=== PATIENT | male | born 1950 | race Caucasian/White ===

== ENCOUNTER 2020-12-08 14:28 | Inpatient (IN) | payer OTHER ==
[2020-12-08] MEDS ORDERED: dilTIAZem HCL 50 MG/10 ML - 10 ML VIAL IVPUSH ONE (14:50)
[2020-12-08] MEDS ORDERED: dilTIAZem HCL 50 MG/10 ML - 10 ML VIAL ONE (14:52)
[2020-12-08] MEDS ORDERED: LACTATED RINGERS SOLUTION 1000 ML INFUS.BAG IV ONE (14:58)
[2020-12-08 15:37] LABS: BASO % 0.8 % (0-2.0); EOS % 0.7 % (0-4.5); HEMATOCRIT 34.9 % (35.4-49); HEMOGLOBIN 12.2 GM/dL (11.7-16.9); LYMPH % 14.7 % (8-40); MCH 34.9 pg (25.7-33.7); MCHC 35.1 g/dl (32.0-35.9); MEAN CELL VOLUME 99.4 fl (80-96); MEAN PLT VOLUME 9.2 fl (7.5-11.1); MONO % 10.6 % (3.8-10.2); NEUT % 73.2 % (42.8-82.8); PLATELET COUNT 85 K/MM3 (134-434); RBC 3.51 M/mm3 (4.00-5.60); RDW 15.2 % (11.9-15.9); WHITE BLOOD COUNT 7.4 K/mm3 (4.0-10.0)
[2020-12-08 15:46] LABS: INR 0.94 (0.83-1.09); PROTHROMBIN TIME (PATIENT) 11.6 SEC (9.7-13.0)
[2020-12-08 15:49] LABS: ACTIVATED PTT 23.4 SECONDS (25.2-36.5)
[2020-12-08 15:53] LABS: CHLORIDE 94 mmol/L (98-107); SODIUM 131 mmol/L (136-145)
[2020-12-08 15:55] LABS: ALBUMIN 2.9 g/dl (3.4-5.0); ANION GAP 8 MMOL/L (8-16); BLOOD UREA NITROGEN 5.4 mg/dL (7-18); CALCIUM 8.4 mg/dL (8.5-10.1); CO2 28 mmol/L (21-32); GLUCOSE,RANDOM 174 mg/dL (74-106)
[2020-12-08 15:58] LABS: CREATININE 0.8 mg/dL (0.55-1.3); SGOT/AST 79 U/L (15-37); SGPT/ALT 43 U/L (13-61)
[2020-12-08 16:00] LABS: BILIRUBIN,TOTAL 1.4 mg/dL (0.2-1); TOT PROT 6.7 g/dl (6.4-8.2)
[2020-12-08 16:01] LABS: ALK PHOS 197 U/L (45-117)
[2020-12-08 16:04] LABS: N-TERMINAL BNP 816.2 pg/ml (5-125)
[2020-12-08] MEDS ORDERED: CEFTRIAXONE 1,000 MG in DEXTROSE 5%-WATER - 50 ML IVPB ONE (16:14)
[2020-12-08] MEDS ORDERED: NAPH,MB-DB/K PH,MBDB POWDER PACKET PO ONE ×2 (16:16→16:17)
[2020-12-08] MEDS ORDERED: KCL 10 MEQ IVPB 30 MEQ/300 ML INFUS.BAG IVPB ONE (16:49)
[2020-12-08] MEDS ORDERED: CEFTRIAXONE 1 GM/50 ML BAG ONE (16:49)
[2020-12-08] MEDS ORDERED: NAPH,MB-DB/K PH,MBDB POWDER PACKET ONE (16:50)
[2020-12-08] MEDS ORDERED: FOLIC ACID INJECTION - 1 MG, THIAMINE HCL 100 MG, MULTIVIT INJECTION ADULT 10 ML in SOD... IVPB ONE (16:53)
[2020-12-08] MEDS ORDERED: chlordiazePOXIDE HCL 25 MG CAPSULE PO ONE (17:02)
[2020-12-08] MEDS: KCL 10 MEQ IVPB 10 MEQ/100 ML INFUS.BAG IVPB SCH ×3 (17:03→20:56)
[2020-12-08 17:24] LABS: LIPASE 935 U/L (73-393)
[2020-12-08] MEDS ORDERED: chlordiazePOXIDE HCL 25 MG CAPSULE ONE (17:51)
[2020-12-08 18:49] LABS: EPI CELLS 0-1 /uL (0-25.1); HYALINE CASTS 0 /uL (0-3.1); URINE BACTERIA FEW /uL (0-1359); URINE COLOR RED; URINE RBC >100 /uL (0-23.9); URINE WBC 0-3 /uL (0-25.8)
[2020-12-08 18:50] LABS: URINE APPEARANCE CLOUDY
[2020-12-09] MEDS: THIAMINE HCL 100 MG TABLET (FP) PO SCH ×2 (00:08→11:26)
[2020-12-09] MEDS: FOLIC ACID 1 MG TABLET (FP) PO SCH ×2 (00:08→11:26)
[2020-12-09] MEDS: NICOTINE 7 MG/24 HOURS TOPICAL PATCH TD SCH ×2 (00:26→11:26)
[2020-12-09] MEDS: INSULIN SLIDING SCALE (NOVOLOG) 1 VIAL SQ SCH ×4 (00:29→17:04)
[2020-12-09] MEDS ORDERED: LORazepam 1 MG TABLET PO PRN (05:00)
[2020-12-09] MEDS ORDERED: RIFAXIMIN 200 MG TABLET PO SCH ×3 (06:00)
[2020-12-09] MEDS: NAPH,MB-DB/K PH,MBDB POWDER PACKET PO SCH ×3 (07:01→21:06)
[2020-12-09] MEDS: LORazepam 1 MG TABLET PO SCH ×5 (07:01→23:45)
[2020-12-09 09:22] LABS: HEMOGLOBIN 10.2 GM/dL (11.7-16.9); MCH 35.5 pg (25.7-33.7); MCHC 35.3 g/dl (32.0-35.9); MEAN CELL VOLUME 100.6 fl (80-96); MEAN PLT VOLUME 9.1 fl (7.5-11.1); PLATELET COUNT 71 K/MM3 (134-434); RBC 2.88 M/mm3 (4.00-5.60); RDW 14.7 % (11.9-15.9); WHITE BLOOD COUNT 5.3 K/mm3 (4.0-10.0)
[2020-12-09 10:09] LABS: SGOT/AST 62 U/L (15-37)
[2020-12-09 10:13] LABS: CHOLESTEROL 125 mg/dL (50-200)
[2020-12-09 10:14] LABS: HDL CHOLESTEROL 46 mg/dL (40-60); LDL CHOLESTEROL (ONLY SJRH) 55 mg/dL (5-100); TRIGLYCERIDES 107 mg/dL (0-150)
[2020-12-09 10:21] LABS: CALCIUM 7.6 mg/dL (8.5-10.1); MAGNESIUM 1.9 mg/dL (1.8-2.4)
[2020-12-09 10:22] LABS: BLOOD UREA NITROGEN 3.9 mg/dL (7-18)
[2020-12-09 10:23] LABS: CO2 25 mmol/L (21-32); GLUCOSE,RANDOM 121 mg/dL (74-106)
[2020-12-09 10:24] LABS: SGPT/ALT 31 U/L (13-61)
[2020-12-09 10:26] LABS: BILIRUBIN,TOTAL 0.9 mg/dL (0.2-1); TOT PROT 5.3 g/dl (6.4-8.2)
[2020-12-09 10:27] LABS: CREATININE 0.4 mg/dL (0.55-1.3)
[2020-12-09 10:29] LABS: ALBUMIN 2.2 g/dl (3.4-5.0); ALK PHOS 147 U/L (45-117); ANION GAP 5 MMOL/L (8-16); CHLORIDE 105 mmol/L (98-107); PHOSPHOROUS 1.1 mg/dL (2.5-4.9); SODIUM 136 mmol/L (136-145)
[2020-12-09] MEDS ORDERED: SODIUM PHOSPHATE - 0 MM in DEXTROSE 5%-WATER - 250 ML IVPB ONE (10:53)
[2020-12-09 10:56] LABS: IRON SERUM 62 ug/dL (50-175); TOTAL IRON BINDING CAPACITY 163 ug/dL (250-450)
[2020-12-09] MEDS ORDERED: cefTRIAXone SODIUM 1 GM VIAL ONE (11:22)
[2020-12-09] MEDS ORDERED: DEXTROSE 5%-WATER - 50 ML IVPB ONE (11:23)
[2020-12-09] MEDS: CEFTRIAXONE 1 GM in DEXTROSE 5%-WATER - 50 ML IVPB SCH (11:26)
[2020-12-09] MEDS: MULTIVITAMINS (DAILY MVI) TABLET (FP) PO SCH (11:26)
[2020-12-09] MEDS: LACTULOSE 20 GM/30 ML UDC (FOR ORAL USE ONLY) PO SCH ×3 (11:26→21:07)
[2020-12-09] MEDS: POLYETHYLENE GLYCOL 3350 119 GM BTL PO SCH ×2 (11:28→21:06)
[2020-12-09] MEDS ORDERED: SODIUM PHOSPHATE - 30 MM in DEXTROSE 5%-WATER - 500 ML IVPB ONE (12:00)
[2020-12-09 19:35] LABS: PH,URINE 7.5 (5.0-8.0); URINE APPEARANCE CLOUDY; URINE BILIRUBIN NEGATIVE (NEGATIVE); URINE COLOR ORANGE; URINE GLUCOSE (UA) NEGATIVE (NEGATIVE); URINE KETONE NEGATIVE (NEGATIVE); URINE LEUK ESTERASE NEGATIVE (NEGATIVE); URINE NITRITE NEGATIVE (NEGATIVE); URINE PROTEIN NEGATIVE (NEGATIVE)
[2020-12-09 19:37] LABS: EPI CELLS 5.2 /uL (0-25.1); HYALINE CASTS 0.12 /uL (0-3.1); URINE BACTERIA 2.8 /uL (0-1359)
[2020-12-09] MEDS: RIFAXIMIN 550 MG TABLET (UD) PO SCH (21:06)
[2020-12-10] MEDS: INSULIN SLIDING SCALE (NOVOLOG) 1 VIAL SQ SCH ×4 (00:30→17:23)
[2020-12-10] MEDS: NAPH,MB-DB/K PH,MBDB POWDER PACKET PO SCH ×3 (05:57→21:30)
[2020-12-10] MEDS: LACTULOSE 20 GM/30 ML UDC (FOR ORAL USE ONLY) PO SCH ×3 (05:58→21:30)
[2020-12-10] MEDS: LORazepam 1 MG TABLET PO SCH ×4 (05:58→22:20)
[2020-12-10 09:10] LABS: BASO % 0.8 % (0-2.0); EOS % 1.8 % (0-4.5); HEMATOCRIT 32.9 % (35.4-49); HEMOGLOBIN 11.4 GM/dL (11.7-16.9); LYMPH % 18.6 % (8-40); MCH 35.2 pg (25.7-33.7); MCHC 34.7 g/dl (32.0-35.9); MEAN CELL VOLUME 101.4 fl (80-96); MEAN PLT VOLUME 9.6 fl (7.5-11.1); MONO % 9.7 % (3.8-10.2); NEUT % 69.1 % (42.8-82.8); PLATELET COUNT 86 K/MM3 (134-434); RBC 3.25 M/mm3 (4.00-5.60); RDW 15.5 % (11.9-15.9); WHITE BLOOD COUNT 6.9 K/mm3 (4.0-10.0)
[2020-12-10] MEDS ORDERED: cefTRIAXone SODIUM 1 GM VIAL ONE (09:17)
[2020-12-10] MEDS ORDERED: DEXTROSE 5%-WATER - 50 ML IVPB ONE (09:17)
[2020-12-10 09:20] LABS: CALCIUM 7.9 mg/dL (8.5-10.1)
[2020-12-10] MEDS: CEFTRIAXONE 1 GM in DEXTROSE 5%-WATER - 50 ML IVPB SCH (09:20)
[2020-12-10 09:21] LABS: MAGNESIUM 2.3 mg/dL (1.8-2.4)
[2020-12-10] MEDS: FOLIC ACID 1 MG TABLET (FP) PO SCH (09:21)
[2020-12-10] MEDS: NICOTINE 7 MG/24 HOURS TOPICAL PATCH TD SCH (09:21)
[2020-12-10] MEDS: MULTIVITAMINS (DAILY MVI) TABLET (FP) PO SCH (09:21)
[2020-12-10] MEDS: THIAMINE HCL 100 MG TABLET (FP) PO SCH (09:21)
[2020-12-10] MEDS: RIFAXIMIN 550 MG TABLET (UD) PO SCH ×2 (09:21→21:30)
[2020-12-10] MEDS: POLYETHYLENE GLYCOL 3350 119 GM BTL PO SCH (09:22)
[2020-12-10 09:24] LABS: CREATININE 0.6 mg/dL (0.55-1.3); PHOSPHOROUS 2.8 mg/dL (2.5-4.9)
[2020-12-10 09:26] LABS: TOT PROT 6.2 g/dl (6.4-8.2)
[2020-12-10 09:31] LABS: ALBUMIN 2.7 g/dl (3.4-5.0); BLOOD UREA NITROGEN 3.5 mg/dL (7-18)
[2020-12-11] MEDS: INSULIN SLIDING SCALE (NOVOLOG) 1 VIAL SQ SCH ×4 (01:00→18:06)
[2020-12-11] MEDS ORDERED: LORazepam 0.5 MG TABLET PO SCH (05:00)
[2020-12-11] MEDS: LACTULOSE 20 GM/30 ML UDC (FOR ORAL USE ONLY) PO SCH ×3 (06:21→21:07)
[2020-12-11] MEDS: NAPH,MB-DB/K PH,MBDB POWDER PACKET PO SCH ×3 (06:21→21:07)
[2020-12-11 07:52] LABS: ARTERIAL BLD GAS O2 SATURATION 97.9 mmHg (95-98); ARTERIAL BLOOD GAS PO2 101.3 mmHg (80-100); ARTERIAL BLOOD GAS pH 7.447 (7.350-7.450)
[2020-12-11] MEDS ORDERED: LORazepam 0.5 MG TABLET PO PRN ×2 (08:02)
[2020-12-11 08:17] LABS: BASO % 0.4 % (0-2.0); HEMATOCRIT 39.3 % (35.4-49); HEMOGLOBIN 13.7 GM/dL (11.7-16.9); LYMPH % 7.5 % (8-40); MCH 34.7 pg (25.7-33.7); MCHC 34.8 g/dl (32.0-35.9); MEAN CELL VOLUME 99.7 fl (80-96); MONO % 5.6 % (3.8-10.2); NEUT % 86.5 % (42.8-82.8); PLATELET COUNT 128 K/MM3 (134-434); RBC 3.95 M/mm3 (4.00-5.60); RDW 14.8 % (11.9-15.9); WHITE BLOOD COUNT 13.2 K/mm3 (4.0-10.0)
[2020-12-11 08:28] LABS: INR 1.03 (0.83-1.09); PROTHROMBIN TIME (PATIENT) 12.5 SEC (9.7-13.0)
[2020-12-11 08:31] LABS: ACTIVATED PTT 25.4 SECONDS (25.2-36.5)
[2020-12-11 08:43] LABS: ALBUMIN 2.9 g/dl (3.4-5.0); MAGNESIUM 2.7 mg/dL (1.8-2.4)
[2020-12-11 08:46] LABS: CREATININE 2.5 mg/dL (0.55-1.3); PHOSPHOROUS 4.9 mg/dL (2.5-4.9)
[2020-12-11 08:47] LABS: BILIRUBIN,TOTAL 1.4 mg/dL (0.2-1)
[2020-12-11 08:49] LABS: LACTIC ACID 6.1 mmol/L (0.4-2.0)
[2020-12-11] MEDS ORDERED: VANCOMYCIN 1 GM in D5W (PRE-DOCKED) 1,000 MG/250 ML IVPB ONE (08:51)
[2020-12-11 08:54] LABS: CALCIUM 9.2 mg/dL (8.5-10.1)
[2020-12-11] MEDS ORDERED: PIPERACILLIN/TAZOB 3.375 GM 3.375 GM in DEXTROSE 5%-WATER - 50 ML IVPB ONE (09:30)
[2020-12-11] MEDS ORDERED: CEFTRIAXONE 1 GM in DEXTROSE 5%-WATER - 50 ML IVPB SCH (10:00)
[2020-12-11] MEDS ORDERED: POLYETHYLENE GLYCOL 3350 119 GM BTL PO SCH (10:00)
[2020-12-11] MEDS ORDERED: THIAMINE HCL 100 MG TABLET (FP) PO SCH (10:00)
[2020-12-11] MEDS ORDERED: DEXTROSE 5%-WATER - 50 ML IVPB ONE ×2 (10:26→20:04)
[2020-12-11] MEDS ORDERED: PIPERACILLIN/TAZOBACTAM 3.375 GM VIAL IVPB ONE (10:26)
[2020-12-11] MEDS: LORazepam 0.5 MG TABLET PO SCH ×3 (11:09→23:52)
[2020-12-11] MEDS: FOLIC ACID 1 MG TABLET (FP) PO SCH (11:09)
[2020-12-11] MEDS: RIFAXIMIN 550 MG TABLET (UD) PO SCH ×2 (11:09→21:07)
[2020-12-11] MEDS: POLYETHYLENE GLYCOL 3350 119 GM BTL PO SCH (11:09)
[2020-12-11] MEDS: MULTIVITAMINS (DAILY MVI) TABLET (FP) PO SCH (11:09)
[2020-12-11 12:01] LABS: ANISOCYTOSIS 1+; MACROCYTOSIS 1+; PLATELET ESTIMATE DECREASED; TOXIC GRANULATION 1+
[2020-12-11 12:37] LABS: BASO % 0.5 % (0-2.0); HEMOGLOBIN 12.2 GM/dL (11.7-16.9); LYMPH % 8.4 % (8-40); MCH 35.1 pg (25.7-33.7); MCHC 34.9 g/dl (32.0-35.9); MEAN CELL VOLUME 100.7 fl (80-96); MEAN PLT VOLUME 10.2 fl (7.5-11.1); MONO % 4.2 % (3.8-10.2); NEUT % 86.9 % (42.8-82.8); PLATELET COUNT 95 K/MM3 (134-434); RBC 3.48 M/mm3 (4.00-5.60); RDW 15.1 % (11.9-15.9); WHITE BLOOD COUNT 8.9 K/mm3 (4.0-10.0)
[2020-12-11 12:45] LABS: INR 1.07 (0.83-1.09); PROTHROMBIN TIME (PATIENT) 12.9 SEC (9.7-13.0)
[2020-12-11 12:59] LABS: CHLORIDE 95 mmol/L (98-107); SODIUM 133 mmol/L (136-145)
[2020-12-11 13:01] LABS: ALBUMIN 2.4 g/dl (3.4-5.0); ANION GAP 12 MMOL/L (8-16); BLOOD UREA NITROGEN 12.5 mg/dL (7-18); CALCIUM 8.4 mg/dL (8.5-10.1); CO2 26 mmol/L (21-32); GLUCOSE,RANDOM 262 mg/dL (74-106)
[2020-12-11 13:04] LABS: SGOT/AST 46 U/L (15-37); SGPT/ALT 30 U/L (13-61)
[2020-12-11 13:05] LABS: CREATININE 2.5 mg/dL (0.55-1.3)
[2020-12-11 13:05] LABS: ARTERIAL BLOOD GAS BASE EXCESS -0.6 mmol/L (-2-2); ARTERIAL BLOOD GAS PO2 72.2 mmHg (80-100); ARTERIAL BLOOD GAS pH 7.425 (7.350-7.450)
[2020-12-11 13:06] LABS: BILIRUBIN,TOTAL 1.1 mg/dL (0.2-1)
[2020-12-11 13:08] LABS: ALLENS TEST POSITIVE
[2020-12-11 13:19] LABS: ALK PHOS 168 U/L (45-117); LACTIC ACID 3.8 mmol/L (0.4-2.0)
[2020-12-11 14:41] LABS: ANISOCYTOSIS 1+; MACROCYTOSIS 1+; OVALOCYTE 1+; PLATELET ESTIMATE DECREASED
[2020-12-11] MEDS ORDERED: METOPROLOL TARTRATE 5 MG/5 ML VIAL IVPUSH ONE (14:56)
[2020-12-11] MEDS ORDERED: METOPROLOL TARTRATE 5 MG/5 ML VIAL ONE ×2 (14:57→17:01)
[2020-12-11] MEDS ORDERED: LACTATED RINGERS SOLUTION 1000 ML INFUS.BAG IV ONE ×3 (14:58→21:00)
[2020-12-11] MEDS: NICOTINE 7 MG/24 HOURS TOPICAL PATCH TD SCH (15:16)
[2020-12-11] MEDS: THIAMINE HCL 200 MG/2 ML VIAL IVPB SCH (15:16)
[2020-12-11] MEDS: HEPARIN NA (PORCINE) 5,000 UNITS/ML 1ML VIAL SQ SCH ×2 (15:38→21:07)
[2020-12-11 16:16] LABS: HEP B CORE AB, TOT Negative (Negative)
[2020-12-11] MEDS: SODIUM CHLORIDE 1,000 ML IV SCH (16:56)
[2020-12-11] MEDS ORDERED: METOPROLOL TARTRATE 5 MG/5 ML VIAL IVPUSH PRN ×2 (17:05→17:46)
[2020-12-11] MEDS ORDERED: PIPERACILLIN/TAZOBACTAM 2.25 GM VIAL IVPB ONE (20:04)
[2020-12-11] MEDS: PIPERACILLIN/TAZOB 2.25 GM 2.25 GM in DEXTROSE 5%-WATER - 50 ML IVPB SCH (20:28)
[2020-12-11] MEDS: CHLORHEXIDINE GLUCONATE 4% CLEANSER FOR DECOLONIZATION TP SCH (21:07)
[2020-12-11] MEDS: MUPIROCIN 2% TOPICAL OINTMENT FOR DECOLONIZATION NS SCH (21:07)
[2020-12-12] MEDS: INSULIN SLIDING SCALE (NOVOLOG) 1 VIAL SQ SCH ×4 (00:41→17:58)
[2020-12-12] MEDS ORDERED: LORazepam 2 MG/ML SDV VIAL IVPUSH ONE (01:30)
[2020-12-12] MEDS ORDERED: LIDOCAINE HCL 2% JELLY 10 ML CARTRIDGE UR ONE (01:54)
[2020-12-12] MEDS ORDERED: LORazepam 2 MG/ML SDV VIAL ONE (02:02)
[2020-12-12] MEDS ORDERED: ADENOSINE 6 MG/2 ML VIAL IVPUSH ONE ×2 (02:12→02:16)
[2020-12-12] MEDS ORDERED: PIPERACILLIN/TAZOBACTAM 2.25 GM VIAL IVPB ONE ×2 (02:16→09:52)
[2020-12-12] MEDS ORDERED: DEXTROSE 5%-WATER - 50 ML IVPB ONE ×2 (02:17→09:52)
[2020-12-12] MEDS: PIPERACILLIN/TAZOB 2.25 GM 2.25 GM in DEXTROSE 5%-WATER - 50 ML IVPB SCH ×2 (02:30→09:55)
[2020-12-12] MEDS ORDERED: ACETAMINOPHEN 1000 MG/100 ML VIAL (NON FORMULARY) IVPB ONE (03:12)
[2020-12-12] MEDS ORDERED: SODIUM CHLORIDE 1,000 ML IV STA ×2 (03:20→04:45)
[2020-12-12 04:41] LABS: INR 1.13 (0.83-1.09); PROTHROMBIN TIME (PATIENT) 13.6 SEC (9.7-13.0)
[2020-12-12 04:43] LABS: ACTIVATED PTT 25.8 SECONDS (25.2-36.5)
[2020-12-12 04:45] LABS: ALBUMIN 2.2 g/dl (3.4-5.0); BLOOD UREA NITROGEN 14.3 mg/dL (7-18); CALCIUM 7.3 mg/dL (8.5-10.1)
[2020-12-12 04:46] LABS: MAGNESIUM 2.2 mg/dL (1.8-2.4)
[2020-12-12 04:49] LABS: PHOSPHOROUS 3.4 mg/dL (2.5-4.9)
[2020-12-12 04:50] LABS: BILIRUBIN,TOTAL 1.2 mg/dL (0.2-1); TOT PROT 5.6 g/dl (6.4-8.2)
[2020-12-12 04:53] LABS: BASO % 0.4 % (0-2.0); EOS % 0.1 % (0-4.5); HEMATOCRIT 33.4 % (35.4-49); HEMOGLOBIN 11.6 GM/dL (11.7-16.9); LYMPH % 9.3 % (8-40); MCH 35.1 pg (25.7-33.7); MCHC 34.7 g/dl (32.0-35.9); MEAN CELL VOLUME 101.1 fl (80-96); MEAN PLT VOLUME 10.2 fl (7.5-11.1); MONO % 6.3 % (3.8-10.2); NEUT % 83.9 % (42.8-82.8); PLATELET COUNT 108 K/MM3 (134-434); RBC 3.31 M/mm3 (4.00-5.60); RDW 15.7 % (11.9-15.9); WHITE BLOOD COUNT 7.9 K/mm3 (4.0-10.0)
[2020-12-12] MEDS ORDERED: LORazepam 0.5 MG TABLET PO ONE ×2 (05:00)
[2020-12-12] MEDS: LORazepam 0.5 MG TABLET PO SCH (05:12)
[2020-12-12] MEDS: KCL 10 MEQ IVPB 10 MEQ/100 ML INFUS.BAG IVPB SCH ×3 (05:12→07:26)
[2020-12-12] MEDS ORDERED: ELECTROLYTE-148 SOLN 1,000 ML IV ONE (05:14)
[2020-12-12] MEDS ORDERED: dilTIAZem HCL 50 MG/10 ML - 10 ML VIAL IVPUSH ONE (05:15)
[2020-12-12] MEDS: NAPH,MB-DB/K PH,MBDB POWDER PACKET PO SCH ×3 (05:58→21:54)
[2020-12-12] MEDS: LACTULOSE 20 GM/30 ML UDC (FOR ORAL USE ONLY) PO SCH ×3 (05:58→21:53)
[2020-12-12] MEDS ORDERED: AMIODARONE IN DEXTROSE,ISO-OSM 150 MG/100 ML BAG IVPB ONE (06:15)
[2020-12-12] MEDS ORDERED: AMIODARONE IN DEXTROSE,ISO-OSM 360 MG/200 ML BAG IVPB SCH ×2 (06:25→12:25)
[2020-12-12] MEDS: HEPARIN NA (PORCINE) 5,000 UNITS/ML 1ML VIAL SQ SCH ×3 (06:35→23:00)
[2020-12-12 06:38] LABS: ANISOCYTOSIS 1+; MACROCYTOSIS 1+; OVALOCYTE 1+; PLATELET ESTIMATE DECREASED; ROULEAU 1+
[2020-12-12 07:28] LABS: CALCIUM 7.3 mg/dL (8.5-10.1)
[2020-12-12 07:29] LABS: MAGNESIUM 2.3 mg/dL (1.8-2.4)
[2020-12-12 07:30] LABS: BLOOD UREA NITROGEN 15.8 mg/dL (7-18)
[2020-12-12 07:32] LABS: CREATININE 0.9 mg/dL (0.55-1.3)
[2020-12-12 07:33] LABS: PHOSPHOROUS 3.4 mg/dL (2.5-4.9)
[2020-12-12 07:34] LABS: BILIRUBIN,TOTAL 1.2 mg/dL (0.2-1); TOT PROT 5.1 g/dl (6.4-8.2)
[2020-12-12 07:35] LABS: N-TERMINAL BNP 1441.9 pg/ml (5-125)
[2020-12-12] MEDS: RIFAXIMIN 550 MG TABLET (UD) PO SCH ×2 (10:09→21:54)
[2020-12-12] MEDS: POLYETHYLENE GLYCOL 3350 119 GM BTL PO SCH (10:09)
[2020-12-12] MEDS: MULTIVITAMINS (DAILY MVI) TABLET (FP) PO SCH (10:09)
[2020-12-12] MEDS: FOLIC ACID 1 MG TABLET (FP) PO SCH (10:10)
[2020-12-12] MEDS: MUPIROCIN 2% TOPICAL OINTMENT FOR DECOLONIZATION NS SCH ×2 (10:10→21:53)
[2020-12-12] MEDS ORDERED: LACTATED RINGERS SOLUTION 1000 ML INFUS.BAG IV ONE ×2 (10:20→18:31)
[2020-12-12] MEDS: THIAMINE HCL 200 MG/2 ML VIAL IVPB SCH (10:46)
[2020-12-12] MEDS ORDERED: METOPROLOL TARTRATE 5 MG/5 ML VIAL IVPUSH PRN (10:53)
[2020-12-12] MEDS ORDERED: LORazepam 0.5 MG TABLET PO PRN (10:54)
[2020-12-12] MEDS ORDERED: LORazepam 2 MG/ML SDV VIAL IVPUSH PRN (11:15)
[2020-12-12] MEDS: DEXMEDETOMIDINE IN 0.9 % NACL 400 MCG/100 ML VIAL IVPB SCH (11:37)
[2020-12-12 11:38] LABS: BASO % 0.2 % (0-2.0); EOS % 0.2 % (0-4.5); HEMATOCRIT 29.8 % (35.4-49); HEMOGLOBIN 10.3 GM/dL (11.7-16.9); LYMPH % 11.9 % (8-40); MCH 35.3 pg (25.7-33.7); MCHC 34.6 g/dl (32.0-35.9); MEAN CELL VOLUME 102.1 fl (80-96); MEAN PLT VOLUME 10.4 fl (7.5-11.1); MONO % 5.8 % (3.8-10.2); NEUT % 81.9 % (42.8-82.8); PLATELET COUNT 98 K/MM3 (134-434); RBC 2.92 M/mm3 (4.00-5.60); RDW 15.7 % (11.9-15.9)
[2020-12-12] MEDS ORDERED: PROPOFOL 1,000,000 MCG/100 ML VIAL ONE (11:58)
[2020-12-12] MEDS ORDERED: RAPID SEQUENCE INTUBATION KIT NR ONE (11:58)
[2020-12-12] MEDS ORDERED: MIDAZOLAM HCL 5 MG/1 ML Single Dose Vial ONE (11:58)
[2020-12-12] MEDS ORDERED: FOLIC ACID INJECTION - 1 MG, THIAMINE HCL 100 MG, MULTIVIT INJECTION ADULT 10 ML in SOD... IVPB ONE (12:00)
[2020-12-12] MEDS ORDERED: FENTANYL NS IVPB 500 MCG/100 ML BAG IVPB ONE (12:34)
[2020-12-12] MEDS ORDERED: ROCURONIUM BROMIDE 50 MG/5 ML VIAL IV ONE (12:35)
[2020-12-12] MEDS: PROPOFOL 1,000,000 MCG/100 ML VIAL IVPB SCH (12:35)
[2020-12-12] MEDS ORDERED: MIDAZOLAM HCL 5 MG/1 ML Single Dose Vial IVPUSH ONE (12:35)
[2020-12-12] MEDS ORDERED: PROPOFOL 200 MG/20 ML VIAL IVPUSH ONE (12:35)
[2020-12-12] MEDS: NICOTINE 7 MG/24 HOURS TOPICAL PATCH TD SCH (12:45)
[2020-12-12] MEDS: FENTANYL IVPB 500 MCG/100 ML BAG IVPB SCH (12:45)
[2020-12-12 13:49] LABS: ANISOCYTOSIS 1+; MACROCYTOSIS 1+; PLATELET ESTIMATE DECREASED
[2020-12-12 14:43] LABS: ALLENS TEST POSITIVE; ARTERIAL BLD GAS O2 SATURATION 87.8 mmHg (95-98); ARTERIAL BLOOD GAS BASE EXCESS 0.1 mmol/L (-2-2); ARTERIAL BLOOD GAS PO2 60.3 mmHg (80-100); ARTERIAL BLOOD GAS pH 7.291 (7.350-7.450)
[2020-12-12 14:44] LABS: VENT MODE AC; VENT RATE 20
[2020-12-12 15:18] LABS: BASO % 0.4 % (0-2.0); EOS % 0.3 % (0-4.5); HEMATOCRIT 29.7 % (35.4-49); HEMOGLOBIN 10.2 GM/dL (11.7-16.9); LYMPH % 8.9 % (8-40); MCH 34.9 pg (25.7-33.7); MCHC 34.2 g/dl (32.0-35.9); MEAN PLT VOLUME 10.1 fl (7.5-11.1); MONO % 4.7 % (3.8-10.2); NEUT % 85.7 % (42.8-82.8); PLATELET COUNT 101 K/MM3 (134-434); RBC 2.91 M/mm3 (4.00-5.60); RDW 15.8 % (11.9-15.9); WHITE BLOOD COUNT 6.1 K/mm3 (4.0-10.0)
[2020-12-12 15:34] LABS: CHLORIDE 103 mmol/L (98-107); SODIUM 139 mmol/L (136-145)
[2020-12-12 15:37] LABS: ANION GAP 5 MMOL/L (8-16); BLOOD UREA NITROGEN 12.7 mg/dL (7-18); CO2 31 mmol/L (21-32)
[2020-12-12 15:38] LABS: GLUCOSE,RANDOM 131 mg/dL (74-106)
[2020-12-12 15:39] LABS: ALBUMIN 1.6 g/dl (3.4-5.0); CALCIUM 6.6 mg/dL (8.5-10.1)
[2020-12-12 15:40] LABS: CREATININE 0.5 mg/dL (0.55-1.3); SGOT/AST 38 U/L (15-37); SGPT/ALT 20 U/L (13-61)
[2020-12-12 15:42] LABS: TOT PROT 4.1 g/dl (6.4-8.2)
[2020-12-12 15:43] LABS: ALK PHOS 105 U/L (45-117)
[2020-12-12 16:09] LABS: URINE APPEARANCE TURBID; URINE COLOR RED
[2020-12-12 16:10] LABS: EPI CELLS 1.7 /uL (0-25.1); HYALINE CASTS 18.7 /uL (0-3.1); URINE BACTERIA 1.9 /uL (0-1359); URINE RBC 11008.8 /uL (0-23.9)
[2020-12-12] MEDS ORDERED: DEXTROSE 5%-WATER 100 ML IVPB ONE ×2 (17:48→22:40)
[2020-12-12] MEDS ORDERED: PIPERACILLIN/TAZOBACTAM 4.5 GM VIAL IVPB ONE ×2 (17:48→22:40)
[2020-12-12] MEDS ORDERED: POTASSIUM CHLORIDE ORAL LIQUID 20 MEQ/15 ML PO ONE (17:48)
[2020-12-12] MEDS: VECURONIUM BROMIDE 100 MG/100 ML BAG IVPB SCH (17:53)
[2020-12-12] MEDS: SODIUM CHLORIDE 1,000 ML IV SCH (17:53)
[2020-12-12] MEDS ORDERED: POTASSIUM CHLORIDE 20 MEQ PREMIX IVPB 100 ML IVPB ONE (17:54)
[2020-12-12] MEDS: PIPERACILLIN/TAZOB 4.5 GM 4.5 GM in DEXTROSE 5%-WATER 100 ML IVPB SCH (17:58)
[2020-12-12] MEDS ORDERED: NOREPINEPHRINE BITARTRATE 4 MG/4 ML ML IV ONE (18:12)
[2020-12-12] MEDS ORDERED: NOREPINEPHRINE NS PREMIX 16,000 MCG/500 ML BAG IVPB ONE (18:13)
[2020-12-12] MEDS ORDERED: MIDAZOLAM IN 0.9 % SOD.CHLORID 1 MG/1 ML PLAST..BAG ONE (18:31)
[2020-12-12] MEDS: NOREPINEPHRINE NS PREMIX 8,000 MCG/500 ML BAG IVPB SCH (18:41)
[2020-12-12] MEDS: MIDAZOLAM IN 0.9 % SOD.CHLORID 100 MG/100 ML PLAST..BAG IVPB SCH (18:43)
[2020-12-12] MEDS ORDERED: MIDAZOLAM 100 MG/100 ML MG IVPB SCH (18:45)
[2020-12-12] MEDS: VASOPRESSIN 40 UNITS in SODIUM CHLORIDE 98 ML IVPB SCH (21:52)
[2020-12-12] MEDS: CHLORHEXIDINE GLUCONATE 4% CLEANSER FOR DECOLONIZATION TP SCH (21:53)
[2020-12-13] MEDS: INSULIN SLIDING SCALE (NOVOLOG) 1 VIAL SQ SCH ×4 (01:21→19:34)
[2020-12-13] MEDS: PIPERACILLIN/TAZOB 4.5 GM 4.5 GM in DEXTROSE 5%-WATER 100 ML IVPB SCH ×3 (01:21→17:22)
[2020-12-13 06:29] LABS: BASO % 0.3 % (0-2.0); EOS % 0.8 % (0-4.5); HEMATOCRIT 30.4 % (35.4-49); HEMOGLOBIN 10.4 GM/dL (11.7-16.9); LYMPH % 9.2 % (8-40); MCH 35.2 pg (25.7-33.7); MCHC 34.2 g/dl (32.0-35.9); MEAN CELL VOLUME 102.8 fl (80-96); MEAN PLT VOLUME 10.1 fl (7.5-11.1); NEUT % 83.7 % (42.8-82.8); PLATELET COUNT 172 K/MM3 (134-434); RBC 2.95 M/mm3 (4.00-5.60); RDW 16.1 % (11.9-15.9); WHITE BLOOD COUNT 11.5 K/mm3 (4.0-10.0)
[2020-12-13 06:41] LABS: CHLORIDE 106 mmol/L (98-107); SODIUM 139 mmol/L (136-145)
[2020-12-13 06:46] LABS: ALBUMIN 1.5 g/dl (3.4-5.0); ANION GAP 7 MMOL/L (8-16); CO2 26 mmol/L (21-32)
[2020-12-13 06:47] LABS: BLOOD UREA NITROGEN 13.8 mg/dL (7-18); GLUCOSE,RANDOM 152 mg/dL (74-106)
[2020-12-13 06:49] LABS: CREATININE 0.5 mg/dL (0.55-1.3); SGOT/AST 38 U/L (15-37); SGPT/ALT 21 U/L (13-61)
[2020-12-13 06:51] LABS: TOT PROT 4.2 g/dl (6.4-8.2)
[2020-12-13 06:52] LABS: ALK PHOS 125 U/L (45-117)
[2020-12-13 06:57] LABS: CALCIUM 5.9 mg/dL (8.5-10.1)
[2020-12-13] MEDS: VANCOMYCIN 1 GRAM (PRE-DOCKED) 1,000 MG/250 ML BAG IVPB SCH ×2 (07:00→17:22)
[2020-12-13] MEDS: LACTULOSE 20 GM/30 ML UDC (FOR ORAL USE ONLY) PO SCH ×3 (07:04→23:39)
[2020-12-13] MEDS: HEPARIN NA (PORCINE) 5,000 UNITS/ML 1ML VIAL SQ SCH ×3 (07:05→23:39)
[2020-12-13] MEDS: NAPH,MB-DB/K PH,MBDB POWDER PACKET PO SCH (07:06)
[2020-12-13] MEDS ORDERED: PT OWN MED DRAWER 7, Y5N ONE ×2 (07:52→10:11)
[2020-12-13] MEDS ORDERED: DEXTROSE 5%-WATER 100 ML IVPB ONE ×3 (07:53→22:38)
[2020-12-13] MEDS ORDERED: PIPERACILLIN/TAZOBACTAM 4.5 GM VIAL IVPB ONE ×3 (07:53→22:38)
[2020-12-13] MEDS: VASOPRESSIN 40 UNITS in SODIUM CHLORIDE 98 ML IVPB SCH ×2 (08:09→11:44)
[2020-12-13] MEDS: CALCIUM GLUCONATE 10% - 1,000 MG/10 ML VIAL IVPB ONE ×2 (08:20→08:48)
[2020-12-13] MEDS: FOLIC ACID 1 MG TABLET (FP) PO SCH ×2 (09:28→10:00)
[2020-12-13] MEDS: RIFAXIMIN 550 MG TABLET (UD) PO SCH ×3 (09:29→23:40)
[2020-12-13] MEDS: NICOTINE 7 MG/24 HOURS TOPICAL PATCH TD SCH (09:29)
[2020-12-13] MEDS: MULTIVITAMINS (DAILY MVI) TABLET (FP) PO SCH ×2 (09:29→10:00)
[2020-12-13] MEDS: THIAMINE HCL 200 MG/2 ML VIAL IVPB SCH (09:29)
[2020-12-13] MEDS: POLYETHYLENE GLYCOL 3350 119 GM BTL PO SCH (09:34)
[2020-12-13] MEDS: MUPIROCIN 2% TOPICAL OINTMENT FOR DECOLONIZATION NS SCH ×2 (09:34→23:39)
[2020-12-13] MEDS: DEXMEDETOMIDINE IN 0.9 % NACL 400 MCG/100 ML VIAL IVPB SCH (09:35)
[2020-12-13] MEDS: FENTANYL IVPB 500 MCG/100 ML BAG IVPB SCH ×2 (10:32→13:02)
[2020-12-13] MEDS: SODIUM CHLORIDE 1,000 ML IV SCH ×2 (10:32→19:26)
[2020-12-13 10:53] LABS: ANISOCYTOSIS 0; HELMET CELLS 0; HOWELL-JOLLY BODIES 0; MACROCYTOSIS 0; OVALOCYTE 0; PLATELET ESTIMATE NORMAL; ROULEAU 0; SICKELED CELLS 0; TARGET CELLS 0; TEAR DROP CELLS 0; TOXIC GRANULATION 0
[2020-12-13] MEDS: VECURONIUM BROMIDE 100 MG/100 ML BAG IVPB SCH (12:37)
[2020-12-13] MEDS: PANTOPRAZOLE SODIUM 40 MG VIAL IVPUSH SCH (12:53)
[2020-12-13] MEDS: HYDROCORTISONE SOD SUCCINATE 100 MG/2 ML VIAL IVPUSH SCH ×2 (14:42→23:39)
[2020-12-13] MEDS ORDERED: CALCIUM GLUCONATE 10% - 1,000 MG/10 ML VIAL IVPB ONE (15:00)
[2020-12-13] MEDS ORDERED: PARICALCITOL 5 MCG/ML VIAL IVPUSH ONE (15:00)
[2020-12-13] MEDS: PROPOFOL 1,000,000 MCG/100 ML VIAL IVPB SCH (16:00)
[2020-12-13] MEDS: NOREPINEPHRINE NS PREMIX 8,000 MCG/500 ML BAG IVPB SCH (17:27)
[2020-12-13] MEDS: MIDAZOLAM IN 0.9 % SOD.CHLORID 100 MG/100 ML PLAST..BAG IVPB SCH ×2 (17:28→19:35)
[2020-12-13 22:01] LABS: CHLORIDE 107 mmol/L (98-107); SODIUM 138 mmol/L (136-145)
[2020-12-13 22:03] LABS: ALBUMIN 1.4 g/dl (3.4-5.0); ANION GAP 4 MMOL/L (8-16); BLOOD UREA NITROGEN 13.7 mg/dL (7-18); CO2 28 mmol/L (21-32); GLUCOSE,RANDOM 222 mg/dL (74-106); MAGNESIUM 1.9 mg/dL (1.8-2.4)
[2020-12-13 22:06] LABS: CREATININE 0.6 mg/dL (0.55-1.3); SGOT/AST 35 U/L (15-37); SGPT/ALT 18 U/L (13-61)
[2020-12-13 22:07] LABS: PHOSPHOROUS 2.1 mg/dL (2.5-4.9)
[2020-12-13 22:08] LABS: TOT PROT 4.1 g/dl (6.4-8.2)
[2020-12-13] MEDS ORDERED: FENTANYL NS IVPB 500 MCG/100 ML BAG IVPB ONE (22:37)
[2020-12-13 22:42] LABS: ALK PHOS 183 U/L (45-117); CALCIUM 6.2 mg/dL (8.5-10.1)
[2020-12-13] MEDS: CHLORHEXIDINE GLUCONATE 4% CLEANSER FOR DECOLONIZATION TP SCH (23:39)
[2020-12-14] MEDS: INSULIN SLIDING SCALE (NOVOLOG) 1 VIAL SQ SCH ×5 (00:16→23:54)
[2020-12-14] MEDS: PIPERACILLIN/TAZOB 4.5 GM 4.5 GM in DEXTROSE 5%-WATER 100 ML IVPB SCH ×3 (02:00→18:00)
[2020-12-14] MEDS: HYDROCORTISONE SOD SUCCINATE 100 MG/2 ML VIAL IVPUSH SCH ×4 (04:00→22:28)
[2020-12-14] MEDS: VANCOMYCIN 1 GRAM (PRE-DOCKED) 1,000 MG/250 ML BAG IVPB SCH (05:35)
[2020-12-14] MEDS: HEPARIN NA (PORCINE) 5,000 UNITS/ML 1ML VIAL SQ SCH ×3 (05:35→22:28)
[2020-12-14] MEDS: LACTULOSE 20 GM/30 ML UDC (FOR ORAL USE ONLY) PO SCH (05:35)
[2020-12-14 06:20] LABS: ARTERIAL BLOOD GAS BASE EXCESS -5.4 mmol/L (-2-2); ARTERIAL BLOOD GAS PO2 61.6 mmHg (80-100)
[2020-12-14 06:21] LABS: VENT MODE A/C; VENT RATE 20
[2020-12-14 06:54] LABS: BASO % 0.2 % (0-2.0); HEMATOCRIT 29.2 % (35.4-49); LYMPH % 5.6 % (8-40); MCH 35.3 pg (25.7-33.7); MCHC 34.2 g/dl (32.0-35.9); MEAN CELL VOLUME 103.2 fl (80-96); MEAN PLT VOLUME 9.9 fl (7.5-11.1); MONO % 7.6 % (3.8-10.2); NEUT % 86.6 % (42.8-82.8); PLATELET COUNT 203 K/MM3 (134-434); RBC 2.83 M/mm3 (4.00-5.60); RDW 16.5 % (11.9-15.9); WHITE BLOOD COUNT 12.2 K/mm3 (4.0-10.0)
[2020-12-14 07:09] LABS: CHLORIDE 107 mmol/L (98-107); SODIUM 139 mmol/L (136-145)
[2020-12-14 07:13] LABS: ALBUMIN 1.4 g/dl (3.4-5.0); ANION GAP 4 MMOL/L (8-16); BLOOD UREA NITROGEN 13.1 mg/dL (7-18); CO2 28 mmol/L (21-32); GLUCOSE,RANDOM 212 mg/dL (74-106)
[2020-12-14 07:16] LABS: CREATININE 0.5 mg/dL (0.55-1.3); SGOT/AST 35 U/L (15-37); SGPT/ALT 17 U/L (13-61)
[2020-12-14 07:18] LABS: TOT PROT 4.1 g/dl (6.4-8.2)
[2020-12-14 07:19] LABS: ALK PHOS 189 U/L (45-117)
[2020-12-14 07:32] LABS: CALCIUM 6.1 mg/dL (8.5-10.1)
[2020-12-14] MEDS ORDERED: DEXTROSE 5%-WATER 100 ML IVPB ONE ×2 (08:09→17:53)
[2020-12-14] MEDS ORDERED: PIPERACILLIN/TAZOBACTAM 4.5 GM VIAL IVPB ONE ×2 (08:09→17:53)
[2020-12-14 08:13] LABS: MAGNESIUM 2.1 mg/dL (1.8-2.4)
[2020-12-14 08:17] LABS: PHOSPHOROUS 1.9 mg/dL (2.5-4.9)
[2020-12-14] MEDS ORDERED: CALCIUM GLUCONATE 10% - 1,000 MG/10 ML VIAL IVPB ONE (08:25)
[2020-12-14] MEDS ORDERED: PT OWN MED DRAWER 7, Y5N ONE ×3 (08:51→22:20)
[2020-12-14] MEDS: VASOPRESSIN 40 UNITS in SODIUM CHLORIDE 98 ML IVPB SCH ×2 (09:15→13:15)
[2020-12-14] MEDS ORDERED: SODIUM PHOSPHATE - 15 MM in DEXTROSE 5%-WATER - 250 ML IVPB ONE (09:15)
[2020-12-14] MEDS: THIAMINE HCL 200 MG/2 ML VIAL IVPB SCH (09:31)
[2020-12-14] MEDS: PANTOPRAZOLE SODIUM 40 MG VIAL IVPUSH SCH (09:31)
[2020-12-14] MEDS: NICOTINE 7 MG/24 HOURS TOPICAL PATCH TD SCH (09:32)
[2020-12-14] MEDS: MUPIROCIN 2% TOPICAL OINTMENT FOR DECOLONIZATION NS SCH ×2 (09:32→23:00)
[2020-12-14] MEDS ORDERED: SODIUM BICARBONATE 8.4% 50 MEQ/50 ML DISP.SYRIN IVPUSH ONE ×2 (11:55)
[2020-12-14] MEDS ORDERED: SODIUM BICARBONATE 8.4% - 150 MEQ in DEXTROSE 5%-WATER - 950 ML IV SCH (12:00)
[2020-12-14] MEDS ORDERED: DEXTROSE 5%-WATER - 950 ML with SODIUM BICARBONATE 8.4% - 150 MEQ IV SCH (12:00)
[2020-12-14] MEDS ORDERED: FUROSEMIDE 40 MG/4 ML INJECTABLE VIAL IVPUSH ONE ×2 (12:47→17:39)
[2020-12-14 13:11] LABS: ARTERIAL BLD GAS O2 SATURATION 86.1 mmHg (95-98); ARTERIAL BLOOD GAS BASE EXCESS -1.1 mmol/L (-2-2); ARTERIAL BLOOD GAS pH 7.394 (7.350-7.450)
[2020-12-14 13:12] LABS: ALLENS TEST POSITIVE
[2020-12-14 13:13] LABS: VENT MODE A/C; VENT RATE 30
[2020-12-14] MEDS: VECURONIUM BROMIDE 100 MG/100 ML BAG IVPB SCH (13:15)
[2020-12-14] MEDS: FENTANYL IVPB 500 MCG/100 ML BAG IVPB SCH ×2 (14:19→20:45)
[2020-12-14] MEDS ORDERED: SODIUM BICARBONATE 8.4% - 75 MEQ in DEXTROSE 5%-WATER - 1,000 ML IV SCH (15:55)
[2020-12-14] MEDS ORDERED: CALCIUM GLUCONATE 10% - 1,000 MG/10 ML VIAL IVPUSH ONE ×2 (15:56→22:00)
[2020-12-14 17:18] LABS: ALLENS TEST POSITIVE; ARTERIAL BLD GAS O2 SATURATION 97.5 mmHg (95-98); ARTERIAL BLOOD GAS BASE EXCESS 3.7 mmol/L (-2-2); ARTERIAL BLOOD GAS PO2 88.9 mmHg (80-100); ARTERIAL BLOOD GAS pH 7.501 (7.350-7.450)
[2020-12-14 17:19] LABS: VENT MODE A/C
[2020-12-14 17:20] LABS: VENT RATE 30
[2020-12-14] MEDS: CALCITRIOL 0.25 MCG CAPSULE (FP) PO SCH ×2 (18:39→22:28)
[2020-12-14] MEDS: PROPOFOL 1,000,000 MCG/100 ML VIAL IVPB SCH (18:40)
[2020-12-14] MEDS: MIDAZOLAM IN 0.9 % SOD.CHLORID 100 MG/100 ML PLAST..BAG IVPB SCH (19:00)
[2020-12-14] MEDS: NOREPINEPHRINE NS PREMIX 8,000 MCG/500 ML BAG IVPB SCH (20:05)
[2020-12-14] MEDS: CHLORHEXIDINE GLUCONATE 4% CLEANSER FOR DECOLONIZATION TP SCH (22:28)
[2020-12-15] MEDS ORDERED: PT OWN MED DRAWER 7, Y5N ONE ×4 (00:13→21:43)
[2020-12-15] MEDS ORDERED: DEXTROSE 5%-WATER 100 ML IVPB ONE ×3 (00:14→18:30)
[2020-12-15] MEDS ORDERED: PIPERACILLIN/TAZOBACTAM 4.5 GM VIAL IVPB ONE ×3 (00:14→18:30)
[2020-12-15] MEDS: PIPERACILLIN/TAZOB 4.5 GM 4.5 GM in DEXTROSE 5%-WATER 100 ML IVPB SCH ×3 (01:10→18:35)
[2020-12-15] MEDS: MIDAZOLAM IN 0.9 % SOD.CHLORID 100 MG/100 ML PLAST..BAG IVPB SCH ×3 (01:14→20:48)
[2020-12-15] MEDS: HYDROCORTISONE SOD SUCCINATE 100 MG/2 ML VIAL IVPUSH SCH ×4 (02:08→21:12)
[2020-12-15] MEDS: FENTANYL IVPB 500 MCG/100 ML BAG IVPB SCH ×3 (03:00→14:10)
[2020-12-15] MEDS: HEPARIN NA (PORCINE) 5,000 UNITS/ML 1ML VIAL SQ SCH ×3 (05:20→22:52)
[2020-12-15] MEDS: INSULIN SLIDING SCALE (NOVOLOG) 1 VIAL SQ SCH ×4 (05:21→23:11)
[2020-12-15 06:04] LABS: ARTERIAL BLD GAS O2 SATURATION 99.5 mmHg (95-98); ARTERIAL BLOOD GAS BASE EXCESS 4.3 mmol/L (-2-2); ARTERIAL BLOOD GAS PO2 202.2 mmHg (80-100); ARTERIAL BLOOD GAS pH 7.499 (7.350-7.450)
[2020-12-15 06:09] LABS: VENT MODE A/C
[2020-12-15 06:10] LABS: VENT RATE 26
[2020-12-15 07:48] LABS: BASO % 0.2 % (0-2.0); HEMATOCRIT 28.6 % (35.4-49); HEMOGLOBIN 9.9 GM/dL (11.7-16.9); LYMPH % 7.6 % (8-40); MCH 34.6 pg (25.7-33.7); MCHC 34.7 g/dl (32.0-35.9); MEAN CELL VOLUME 99.6 fl (80-96); MEAN PLT VOLUME 10.2 fl (7.5-11.1); MONO % 6.9 % (3.8-10.2); NEUT % 85.3 % (42.8-82.8); PLATELET COUNT 206 K/MM3 (134-434); RBC 2.87 M/mm3 (4.00-5.60); RDW 15.7 % (11.9-15.9)
[2020-12-15 08:04] LABS: CHLORIDE 105 mmol/L (98-107); SODIUM 144 mmol/L (136-145)
[2020-12-15 08:07] LABS: ALBUMIN 1.3 g/dl (3.4-5.0); BLOOD UREA NITROGEN 10.7 mg/dL (7-18); CO2 34 mmol/L (21-32); GLUCOSE,RANDOM 131 mg/dL (74-106); MAGNESIUM 1.9 mg/dL (1.8-2.4)
[2020-12-15 08:10] LABS: CREATININE 0.4 mg/dL (0.55-1.3); SGOT/AST 90 U/L (15-37); SGPT/ALT 16 U/L (13-61)
[2020-12-15 08:13] LABS: ALK PHOS 210 U/L (45-117)
[2020-12-15 08:17] LABS: ANION GAP 5 MMOL/L (8-16); CALCIUM 7.1 mg/dL (8.5-10.1); PHOSPHOROUS 0.8 mg/dL (2.5-4.9)
[2020-12-15] MEDS: THIAMINE HCL 200 MG/2 ML VIAL IVPB SCH (09:24)
[2020-12-15] MEDS: PANTOPRAZOLE SODIUM 40 MG VIAL IVPUSH SCH (09:24)
[2020-12-15] MEDS: NICOTINE 7 MG/24 HOURS TOPICAL PATCH TD SCH (09:24)
[2020-12-15] MEDS: MUPIROCIN 2% TOPICAL OINTMENT FOR DECOLONIZATION NS SCH ×2 (09:24→21:12)
[2020-12-15] MEDS: CALCITRIOL 0.25 MCG CAPSULE (FP) PO SCH (09:24)
[2020-12-15] MEDS: KCL 10 MEQ IVPB 10 MEQ/100 ML INFUS.BAG IVPB SCH ×3 (10:00→12:05)
[2020-12-15 11:19] LABS: ANISOCYTOSIS 1+; MACROCYTOSIS 1+; PLATELET ESTIMATE NORMAL; TARGET CELLS 1+
[2020-12-15] MEDS: VASOPRESSIN 40 UNITS in SODIUM CHLORIDE 98 ML IVPB SCH (12:06)
[2020-12-15] MEDS: VECURONIUM BROMIDE 100 MG/100 ML BAG IVPB SCH (14:01)
[2020-12-15 14:10] LABS: CHLORIDE 105 mmol/L (98-107); SODIUM 145 mmol/L (136-145)
[2020-12-15 14:12] LABS: ALBUMIN 1.2 g/dl (3.4-5.0); ANION GAP 5 MMOL/L (8-16); BLOOD UREA NITROGEN 11.5 mg/dL (7-18); CALCIUM 7.1 mg/dL (8.5-10.1); CO2 35 mmol/L (21-32)
[2020-12-15 14:13] LABS: GLUCOSE,RANDOM 147 mg/dL (74-106)
[2020-12-15 14:15] LABS: SGOT/AST 67 U/L (15-37); SGPT/ALT 17 U/L (13-61)
[2020-12-15 14:16] LABS: CREATININE 0.4 mg/dL (0.55-1.3)
[2020-12-15 14:17] LABS: BILIRUBIN,TOTAL 1.1 mg/dL (0.2-1); TOT PROT 3.9 g/dl (6.4-8.2)
[2020-12-15 14:18] LABS: ALK PHOS 214 U/L (45-117)
[2020-12-15] MEDS ORDERED: POTASSIUM PHOSPHATE 30 MM in DEXTROSE 5%-WATER - 250 ML IVPB ONE (14:23)
[2020-12-15] MEDS ORDERED: KCL 10 MEQ IVPB 10 MEQ/100 ML INFUS.BAG IVPB SCH (14:30)
[2020-12-15] MEDS ORDERED: POTASSIUM PHOSPHATE 30 MM in SODIUM CHLORIDE 250 ML IVPB ONE (14:30)
[2020-12-15] MEDS: RIFAXIMIN 400 MG/20 ML SUSPENSION NGT SCH ×2 (15:10→22:52)
[2020-12-15] MEDS: PROPOFOL 1,000,000 MCG/100 ML VIAL IVPB SCH (18:18)
[2020-12-15] MEDS: CHLORHEXIDINE GLUCONATE 4% CLEANSER FOR DECOLONIZATION TP SCH (21:12)
[2020-12-15 22:45] LABS: CHLORIDE 105 mmol/L (98-107); SODIUM 145 mmol/L (136-145)
[2020-12-15 22:47] LABS: ANION GAP 6 MMOL/L (8-16); BLOOD UREA NITROGEN 12.6 mg/dL (7-18); CO2 34 mmol/L (21-32); GLUCOSE,RANDOM 197 mg/dL (74-106)
[2020-12-15 22:50] LABS: CREATININE 0.4 mg/dL (0.55-1.3); PHOSPHOROUS 2.3 mg/dL (2.5-4.9)
[2020-12-15] MEDS: LACTULOSE 20 GM/30 ML UDC (FOR ORAL USE ONLY) NGT SCH (22:51)
[2020-12-15] MEDS: CALCITRIOL 1 MCG/ML BOT GT SCH (22:52)
[2020-12-15 23:17] LABS: CALCIUM 6.8 mg/dL (8.5-10.1)
[2020-12-15] MEDS ORDERED: POTASSIUM CHLORIDE ORAL LIQUID 20 MEQ/15 ML NGT ONE (23:31)
[2020-12-16] MEDS: NOREPINEPHRINE NS PREMIX 8,000 MCG/500 ML BAG IVPB SCH ×2 (00:12→10:37)
[2020-12-16] MEDS ORDERED: POTASSIUM PHOSPHATE 30 MM in SODIUM CHLORIDE 250 ML IVPB ONE (00:30)
[2020-12-16] MEDS ORDERED: PIPERACILLIN/TAZOBACTAM 4.5 GM VIAL IVPB ONE ×3 (00:56→16:32)
[2020-12-16] MEDS ORDERED: DEXTROSE 5%-WATER 100 ML IVPB ONE ×3 (00:56→16:32)
[2020-12-16] MEDS: PIPERACILLIN/TAZOB 4.5 GM 4.5 GM in DEXTROSE 5%-WATER 100 ML IVPB SCH ×3 (01:34→17:15)
[2020-12-16] MEDS: HYDROCORTISONE SOD SUCCINATE 100 MG/2 ML VIAL IVPUSH SCH ×4 (03:43→22:31)
[2020-12-16] MEDS: HEPARIN NA (PORCINE) 5,000 UNITS/ML 1ML VIAL SQ SCH ×3 (05:48→22:31)
[2020-12-16] MEDS: INSULIN SLIDING SCALE (NOVOLOG) 1 VIAL SQ SCH ×3 (06:37→17:27)
[2020-12-16] MEDS: RIFAXIMIN 400 MG/20 ML SUSPENSION NGT SCH ×2 (06:37→13:10)
[2020-12-16 07:22] LABS: BASO % 0.1 % (0-2.0); EOS % 0.1 % (0-4.5); HEMATOCRIT 27.9 % (35.4-49); HEMOGLOBIN 9.9 GM/dL (11.7-16.9); LYMPH % 7.1 % (8-40); MCH 35.3 pg (25.7-33.7); MCHC 35.3 g/dl (32.0-35.9); MEAN CELL VOLUME 99.8 fl (80-96); MEAN PLT VOLUME 10.1 fl (7.5-11.1); MONO % 5.4 % (3.8-10.2); NEUT % 87.3 % (42.8-82.8); PLATELET COUNT 198 K/MM3 (134-434); RBC 2.79 M/mm3 (4.00-5.60); WHITE BLOOD COUNT 9.4 K/mm3 (4.0-10.0)
[2020-12-16 07:36] LABS: CHLORIDE 106 mmol/L (98-107); SODIUM 145 mmol/L (136-145)
[2020-12-16 07:46] LABS: ALBUMIN 1.2 g/dl (3.4-5.0); ANION GAP 4 MMOL/L (8-16); CO2 34 mmol/L (21-32); GLUCOSE,RANDOM 260 mg/dL (74-106); MAGNESIUM 2.1 mg/dL (1.8-2.4)
[2020-12-16 07:49] LABS: BLOOD UREA NITROGEN 13.4 mg/dL (7-18); PHOSPHOROUS 2.2 mg/dL (2.5-4.9); SGOT/AST 50 U/L (15-37); SGPT/ALT 17 U/L (13-61)
[2020-12-16 07:50] LABS: CREATININE 0.5 mg/dL (0.55-1.3)
[2020-12-16 07:54] LABS: TOT PROT 3.9 g/dl (6.4-8.2)
[2020-12-16 07:56] LABS: ALK PHOS 256 U/L (45-117); CALCIUM 6.9 mg/dL (8.5-10.1)
[2020-12-16] MEDS: MUPIROCIN 2% TOPICAL OINTMENT FOR DECOLONIZATION NS SCH (09:04)
[2020-12-16] MEDS: CALCITRIOL 1 MCG/ML BOT GT SCH (09:04)
[2020-12-16] MEDS: LACTULOSE 20 GM/30 ML UDC (FOR ORAL USE ONLY) NGT SCH (09:04)
[2020-12-16] MEDS: PANTOPRAZOLE SODIUM 40 MG VIAL IVPUSH SCH (09:04)
[2020-12-16] MEDS: NICOTINE 7 MG/24 HOURS TOPICAL PATCH TD SCH (09:05)
[2020-12-16] MEDS: THIAMINE HCL 200 MG/2 ML VIAL IVPB SCH (09:05)
[2020-12-16] MEDS: FENTANYL IVPB 500 MCG/100 ML BAG IVPB SCH ×2 (10:18→17:11)
[2020-12-16 10:27] LABS: ANISOCYTOSIS 0; MACROCYTOSIS 0; PLATELET ESTIMATE NORMAL
[2020-12-16] MEDS: MIDAZOLAM IN 0.9 % SOD.CHLORID 100 MG/100 ML PLAST..BAG IVPB SCH (10:38)
[2020-12-16] MEDS ORDERED: FUROSEMIDE 40 MG/4 ML INJECTABLE VIAL IVPUSH ONE ×2 (12:04→22:01)
[2020-12-16] MEDS: VASOPRESSIN 40 UNITS in SODIUM CHLORIDE 98 ML IVPB SCH (12:19)
[2020-12-16] MEDS: VECURONIUM BROMIDE 100 MG/100 ML BAG IVPB SCH (13:03)
[2020-12-16 14:43] LABS: CHLORIDE 107 mmol/L (98-107); SODIUM 145 mmol/L (136-145)
[2020-12-16 14:44] LABS: ANION GAP 4 MMOL/L (8-16); BLOOD UREA NITROGEN 13.4 mg/dL (7-18); CO2 35 mmol/L (21-32); GLUCOSE,RANDOM 225 mg/dL (74-106)
[2020-12-16 14:45] LABS: MAGNESIUM 2.1 mg/dL (1.8-2.4)
[2020-12-16 14:47] LABS: CREATININE 0.5 mg/dL (0.55-1.3)
[2020-12-16 14:48] LABS: CALCIUM 6.6 mg/dL (8.5-10.1); PHOSPHOROUS 1.9 mg/dL (2.5-4.9)
[2020-12-16] MEDS: PROPOFOL 1,000,000 MCG/100 ML VIAL IVPB SCH (17:16)
[2020-12-16] MEDS ORDERED: POTASSIUM PHOSPHATE 30 MM in SODIUM CHLORIDE 500 ML IVPB ONE (18:00)
[2020-12-16] MEDS ORDERED: PT OWN MED DRAWER 7, Y5N ONE (22:04)
[2020-12-16] MEDS: CHLORHEXIDINE GLUCONATE 4% CLEANSER FOR DECOLONIZATION TP SCH (22:31)
[2020-12-17] MEDS: RIFAXIMIN 400 MG/20 ML SUSPENSION NGT SCH ×4 (00:59→22:20)
[2020-12-17] MEDS: INSULIN SLIDING SCALE (NOVOLOG) 1 VIAL SQ SCH ×4 (00:59→18:45)
[2020-12-17] MEDS: CALCITRIOL 1 MCG/ML BOT GT SCH ×3 (00:59→22:20)
[2020-12-17] MEDS: LACTULOSE 20 GM/30 ML UDC (FOR ORAL USE ONLY) NGT SCH ×3 (00:59→22:19)
[2020-12-17] MEDS ORDERED: PIPERACILLIN/TAZOBACTAM 4.5 GM VIAL IVPB ONE ×4 (02:30→23:51)
[2020-12-17] MEDS ORDERED: DEXTROSE 5%-WATER 100 ML IVPB ONE ×4 (02:30→23:51)
[2020-12-17] MEDS: PIPERACILLIN/TAZOB 4.5 GM 4.5 GM in DEXTROSE 5%-WATER 100 ML IVPB SCH ×3 (03:19→18:17)
[2020-12-17] MEDS: HYDROCORTISONE SOD SUCCINATE 100 MG/2 ML VIAL IVPUSH SCH ×4 (03:19→22:19)
[2020-12-17] MEDS: HEPARIN NA (PORCINE) 5,000 UNITS/ML 1ML VIAL SQ SCH ×3 (05:59→22:19)
[2020-12-17] MEDS: NOREPINEPHRINE NS PREMIX 8,000 MCG/500 ML BAG IVPB SCH ×3 (07:15→18:18)
[2020-12-17] MEDS: MIDAZOLAM IN 0.9 % SOD.CHLORID 100 MG/100 ML PLAST..BAG IVPB SCH ×3 (07:16→18:44)
[2020-12-17 07:25] LABS: CHLORIDE 105 mmol/L (98-107); SODIUM 146 mmol/L (136-145)
[2020-12-17 07:27] LABS: ALBUMIN 1.3 g/dl (3.4-5.0); ANION GAP 5 MMOL/L (8-16); BLOOD UREA NITROGEN 15.3 mg/dL (7-18); CO2 37 mmol/L (21-32); GLUCOSE,RANDOM 218 mg/dL (74-106); MAGNESIUM 2.2 mg/dL (1.8-2.4)
[2020-12-17 07:30] LABS: CREATININE 0.5 mg/dL (0.55-1.3); SGOT/AST 59 U/L (15-37); SGPT/ALT 22 U/L (13-61)
[2020-12-17 07:31] LABS: BILIRUBIN,TOTAL 0.9 mg/dL (0.2-1); PHOSPHOROUS 2.4 mg/dL (2.5-4.9); TOT PROT 4.3 g/dl (6.4-8.2)
[2020-12-17 07:32] LABS: BASO % 0.2 % (0-2.0); EOS % 0.1 % (0-4.5); HEMATOCRIT 28.6 % (35.4-49); HEMOGLOBIN 9.9 GM/dL (11.7-16.9); MCH 34.7 pg (25.7-33.7); MCHC 34.6 g/dl (32.0-35.9); MEAN CELL VOLUME 100.5 fl (80-96); MEAN PLT VOLUME 10.1 fl (7.5-11.1); MONO % 5.4 % (3.8-10.2); NEUT % 85.3 % (42.8-82.8); PLATELET COUNT 184 K/MM3 (134-434); RBC 2.84 M/mm3 (4.00-5.60); RDW 16.1 % (11.9-15.9); WHITE BLOOD COUNT 12.9 K/mm3 (4.0-10.0)
[2020-12-17 07:33] LABS: ALK PHOS 372 U/L (45-117); CALCIUM 6.8 mg/dL (8.5-10.1)
[2020-12-17] MEDS: PANTOPRAZOLE SODIUM 40 MG VIAL IVPUSH SCH (09:17)
[2020-12-17] MEDS: THIAMINE HCL 200 MG/2 ML VIAL IVPB SCH (09:17)
[2020-12-17] MEDS ORDERED: PT OWN MED DRAWER 7, Y5N ONE ×2 (09:43→20:14)
[2020-12-17] MEDS: NICOTINE 7 MG/24 HOURS TOPICAL PATCH TD SCH (10:36)
[2020-12-17] MEDS: FUROSEMIDE 40 MG/4 ML INJECTABLE VIAL IVPUSH SCH (10:44)
[2020-12-17] MEDS ORDERED: POLYETHYLENE GLYCOL 3350 119 GM BTL PO SCH (11:00)
[2020-12-17] MEDS: VASOPRESSIN 40 UNITS in SODIUM CHLORIDE 98 ML IVPB SCH (11:52)
[2020-12-17] MEDS ORDERED: POTASSIUM PHOSPHATE 30 MM in DEXTROSE 5%-WATER - 500 ML IVPB ONE (12:00)
[2020-12-17] MEDS ORDERED: POTASSIUM PHOSPHATE 30 MM in DEXTROSE 5%-WATER - 250 ML IVPB ONE (13:00)
[2020-12-17] MEDS: VECURONIUM BROMIDE 100 MG/100 ML BAG IVPB SCH (13:07)
[2020-12-17] MEDS: FENTANYL IVPB 500 MCG/100 ML BAG IVPB SCH (13:21)
[2020-12-17] MEDS ORDERED: ALBUMIN HUMAN 25% 100 ML VIAL IVPB ONE (18:00)
[2020-12-17] MEDS ORDERED: METOCLOPRAMIDE HCL INJECTION 10 MG/2 ML VIAL IVPUSH PRN (18:03)
[2020-12-17] MEDS: AMINO ACIDS/PROTEIN HYDROLYS 30 ML LIQUID.PKT PO SCH (18:16)
[2020-12-17] MEDS: PROPOFOL 1,000,000 MCG/100 ML VIAL IVPB SCH (18:17)
[2020-12-17] MEDS ORDERED: FUROSEMIDE 40 MG/4 ML INJECTABLE VIAL IVPUSH ONE (20:00)
[2020-12-17] MEDS: CHLORHEXIDINE GLUCONATE 4% CLEANSER FOR DECOLONIZATION TP SCH (22:19)
[2020-12-18] MEDS: INSULIN SLIDING SCALE (NOVOLOG) 1 VIAL SQ SCH ×4 (00:08→17:12)
[2020-12-18] MEDS: HYDROCORTISONE SOD SUCCINATE 100 MG/2 ML VIAL IVPUSH SCH ×4 (02:14→21:19)
[2020-12-18] MEDS: PIPERACILLIN/TAZOB 4.5 GM 4.5 GM in DEXTROSE 5%-WATER 100 ML IVPB SCH ×3 (02:15→17:28)
[2020-12-18] MEDS ORDERED: FENTANYL NS IVPB 500 MCG/100 ML BAG IVPB ONE (03:22)
[2020-12-18] MEDS: HEPARIN NA (PORCINE) 5,000 UNITS/ML 1ML VIAL SQ SCH (06:29)
[2020-12-18 06:42] LABS: BASO % 0.2 % (0-2.0); HEMATOCRIT 24.4 % (35.4-49); HEMOGLOBIN 8.3 GM/dL (11.7-16.9); LYMPH % 8.8 % (8-40); MCH 34.6 pg (25.7-33.7); MCHC 34.1 g/dl (32.0-35.9); MEAN CELL VOLUME 101.6 fl (80-96); MEAN PLT VOLUME 10.6 fl (7.5-11.1); MONO % 4.8 % (3.8-10.2); NEUT % 86.2 % (42.8-82.8); PLATELET COUNT 130 K/MM3 (134-434); WHITE BLOOD COUNT 9.3 K/mm3 (4.0-10.0)
[2020-12-18] MEDS: RIFAXIMIN 400 MG/20 ML SUSPENSION NGT SCH (06:49)
[2020-12-18 07:06] LABS: CHLORIDE 104 mmol/L (98-107); SODIUM 147 mmol/L (136-145)
[2020-12-18 07:08] LABS: ANION GAP 4 MMOL/L (8-16); BLOOD UREA NITROGEN 17.6 mg/dL (7-18); CO2 39 mmol/L (21-32); GLUCOSE,RANDOM 239 mg/dL (74-106); MAGNESIUM 2.3 mg/dL (1.8-2.4)
[2020-12-18 07:11] LABS: CREATININE 0.6 mg/dL (0.55-1.3); SGOT/AST 76 U/L (15-37); SGPT/ALT 33 U/L (13-61)
[2020-12-18 07:12] LABS: PHOSPHOROUS 2.1 mg/dL (2.5-4.9)
[2020-12-18 07:13] LABS: BILIRUBIN,TOTAL 0.6 mg/dL (0.2-1)
[2020-12-18 07:14] LABS: ALK PHOS 360 U/L (45-117)
[2020-12-18 07:15] LABS: ALBUMIN 1.6 g/dl (3.4-5.0); CALCIUM 6.7 mg/dL (8.5-10.1)
[2020-12-18] MEDS ORDERED: PT OWN MED DRAWER 7, Y5N ONE ×3 (09:21→21:16)
[2020-12-18] MEDS ORDERED: PIPERACILLIN/TAZOBACTAM 4.5 GM VIAL IVPB ONE ×2 (09:22→17:25)
[2020-12-18] MEDS ORDERED: DEXTROSE 5%-WATER 100 ML IVPB ONE ×2 (09:22→17:25)
[2020-12-18] MEDS: LACTULOSE 20 GM/30 ML UDC (FOR ORAL USE ONLY) NGT SCH ×2 (09:26→21:19)
[2020-12-18] MEDS: THIAMINE HCL 200 MG/2 ML VIAL IVPB SCH (09:26)
[2020-12-18] MEDS: PANTOPRAZOLE SODIUM 40 MG VIAL IVPUSH SCH (09:26)
[2020-12-18] MEDS: AMINO ACIDS/PROTEIN HYDROLYS 30 ML LIQUID.PKT PO SCH ×2 (09:26→17:13)
[2020-12-18] MEDS: NICOTINE 7 MG/24 HOURS TOPICAL PATCH TD SCH (09:27)
[2020-12-18] MEDS ORDERED: POTASSIUM CHLORIDE TABS 20 MEQ TABLET.ER (FP) PO ONE (09:30)
[2020-12-18] MEDS: CALCITRIOL 1 MCG/ML BOT GT SCH ×2 (10:48→21:19)
[2020-12-18] MEDS: VASOPRESSIN 40 UNITS in SODIUM CHLORIDE 98 ML IVPB SCH (11:19)
[2020-12-18] MEDS ORDERED: POTASSIUM CHLORIDE ORAL LIQUID 20 MEQ/15 ML PO ONE ×3 (11:55→17:00)
[2020-12-18] MEDS: FENTANYL IVPB 500 MCG/100 ML BAG IVPB SCH ×2 (12:14→17:28)
[2020-12-18] MEDS: VECURONIUM BROMIDE 100 MG/100 ML BAG IVPB SCH (12:53)
[2020-12-18] MEDS: FUROSEMIDE 40 MG/4 ML INJECTABLE VIAL IVPUSH SCH (13:00)
[2020-12-18] MEDS ORDERED: ALBUMIN HUMAN 25% 100 ML VIAL IVPB ONE (16:35)
[2020-12-18] MEDS: PROPOFOL 1,000,000 MCG/100 ML VIAL IVPB SCH (17:09)
[2020-12-18] MEDS: MIDAZOLAM IN 0.9 % SOD.CHLORID 100 MG/100 ML PLAST..BAG IVPB SCH ×2 (17:28→17:46)
[2020-12-18] MEDS: NOREPINEPHRINE NS PREMIX 8,000 MCG/500 ML BAG IVPB SCH (17:28)
[2020-12-18] MEDS: CHLORHEXIDINE GLUCONATE 4% CLEANSER FOR DECOLONIZATION TP SCH (21:19)
[2020-12-19] MEDS: INSULIN SLIDING SCALE (NOVOLOG) 1 VIAL SQ SCH ×4 (00:11→17:03)
[2020-12-19] MEDS ORDERED: DEXTROSE 5%-WATER 100 ML IVPB ONE ×3 (01:14→16:36)
[2020-12-19] MEDS ORDERED: PIPERACILLIN/TAZOBACTAM 4.5 GM VIAL IVPB ONE ×3 (01:14→16:36)
[2020-12-19] MEDS: FENTANYL NS IVPB 500 MCG/100 ML BAG IVPB SCH ×3 (01:17→16:55)
[2020-12-19] MEDS: PIPERACILLIN/TAZOB 4.5 GM 4.5 GM in DEXTROSE 5%-WATER 100 ML IVPB SCH ×3 (01:18→17:02)
[2020-12-19] MEDS: HYDROCORTISONE SOD SUCCINATE 100 MG/2 ML VIAL IVPUSH SCH ×4 (04:08→20:57)
[2020-12-19 06:38] LABS: BASO % 0.1 % (0-2.0); HEMATOCRIT 26.2 % (35.4-49); HEMOGLOBIN 8.7 GM/dL (11.7-16.9); LYMPH % 5.1 % (8-40); MCHC 33.3 g/dl (32.0-35.9); MEAN CELL VOLUME 101.9 fl (80-96); MEAN PLT VOLUME 11.1 fl (7.5-11.1); MONO % 4.1 % (3.8-10.2); NEUT % 90.7 % (42.8-82.8); PLATELET COUNT 147 K/MM3 (134-434); RBC 2.57 M/mm3 (4.00-5.60); RDW 17.1 % (11.9-15.9); WHITE BLOOD COUNT 13.7 K/mm3 (4.0-10.0)
[2020-12-19 07:12] LABS: CHLORIDE 105 mmol/L (98-107); SODIUM 145 mmol/L (136-145)
[2020-12-19 07:17] LABS: ANION GAP 2 MMOL/L (8-16); BLOOD UREA NITROGEN 21.3 mg/dL (7-18); CO2 38 mmol/L (21-32); GLUCOSE,RANDOM 260 mg/dL (74-106); MAGNESIUM 2.5 mg/dL (1.8-2.4)
[2020-12-19 07:20] LABS: CREATININE 0.6 mg/dL (0.55-1.3); PHOSPHOROUS 1.8 mg/dL (2.5-4.9); SGOT/AST 76 U/L (15-37); SGPT/ALT 36 U/L (13-61)
[2020-12-19 07:22] LABS: BILIRUBIN,TOTAL 0.8 mg/dL (0.2-1); TOT PROT 4.5 g/dl (6.4-8.2)
[2020-12-19 07:37] LABS: ALBUMIN 1.9 g/dl (3.4-5.0); ALK PHOS 392 U/L (45-117); CALCIUM 6.9 mg/dL (8.5-10.1)
[2020-12-19] MEDS ORDERED: POTASSIUM PHOSPHATE 15 MM in SODIUM CHLORIDE 100 ML IVPB ONE (07:54)
[2020-12-19] MEDS: MIDAZOLAM IN 0.9 % SOD.CHLORID 100 MG/100 ML PLAST..BAG IVPB SCH (08:00)
[2020-12-19] MEDS: AMINO ACIDS/PROTEIN HYDROLYS 30 ML LIQUID.PKT PO SCH ×2 (08:00→16:52)
[2020-12-19] MEDS ORDERED: PT OWN MED DRAWER 7, Y5N ONE ×2 (09:01→09:39)
[2020-12-19] MEDS: PANTOPRAZOLE SODIUM 40 MG VIAL IVPUSH SCH (09:19)
[2020-12-19] MEDS: LACTULOSE 20 GM/30 ML UDC (FOR ORAL USE ONLY) NGT SCH ×2 (09:19→21:05)
[2020-12-19] MEDS: THIAMINE HCL 200 MG/2 ML VIAL IVPB SCH (09:20)
[2020-12-19] MEDS: CALCITRIOL 1 MCG/ML BOT GT SCH ×2 (09:20→21:05)
[2020-12-19 09:57] LABS: ANISOCYTOSIS 1+; MACROCYTOSIS 0; PLATELET ESTIMATE DECREASED; TARGET CELLS 1+
[2020-12-19] MEDS: NICOTINE 7 MG/24 HOURS TOPICAL PATCH TD SCH (10:00)
[2020-12-19] MEDS ORDERED: ALBUMIN HUMAN 25% 12.5 GM/50 ML VIAL IVPB ONE (10:00)
[2020-12-19] MEDS: FUROSEMIDE 40 MG/4 ML INJECTABLE VIAL IVPUSH SCH (11:19)
[2020-12-19] MEDS: VASOPRESSIN 40 UNITS in SODIUM CHLORIDE 98 ML IVPB SCH (11:45)
[2020-12-19] MEDS: VECURONIUM BROMIDE 100 MG/100 ML BAG IVPB SCH (12:45)
[2020-12-19 14:44] LABS: ARTERIAL BLD GAS O2 SATURATION 98.5 mmHg (95-98); ARTERIAL BLOOD GAS BASE EXCESS 6.9 mmol/L (-2-2); ARTERIAL BLOOD GAS PO2 117.4 mmHg (80-100); ARTERIAL BLOOD GAS pH 7.482 (7.350-7.450)
[2020-12-19 14:47] LABS: VENT MODE AC; VENT RATE 23
[2020-12-19] MEDS ORDERED: FUROSEMIDE 40 MG/4 ML INJECTABLE VIAL IVPUSH SCH (17:00)
[2020-12-19] MEDS: ALBUMIN HUMAN 25% 100 ML VIAL IVPB SCH (17:02)
[2020-12-19] MEDS: NOREPINEPHRINE NS PREMIX 8,000 MCG/500 ML BAG IVPB SCH ×2 (17:29→18:15)
[2020-12-19] MEDS: PROPOFOL 1,000,000 MCG/100 ML VIAL IVPB SCH (17:31)
[2020-12-19] MEDS: CHLORHEXIDINE GLUCONATE 4% CLEANSER FOR DECOLONIZATION TP SCH (21:05)
[2020-12-19] MEDS ORDERED: METOPROLOL TARTRATE 5 MG/5 ML VIAL IVPUSH ONE (22:13)
[2020-12-19] MEDS ORDERED: MIDAZOLAM IN 0.9 % SOD.CHLORID 1 MG/1 ML PLAST..BAG ONE (22:25)
[2020-12-20] MEDS ORDERED: dilTIAZem HCL 50 MG/10 ML - 10 ML VIAL IVPUSH ONE (00:13)
[2020-12-20] MEDS: INSULIN SLIDING SCALE (NOVOLOG) 1 VIAL SQ SCH ×4 (00:25→18:27)
[2020-12-20] MEDS ORDERED: DEXTROSE 5%-WATER 100 ML IVPB ONE ×3 (01:40→17:23)
[2020-12-20] MEDS ORDERED: PIPERACILLIN/TAZOBACTAM 4.5 GM VIAL IVPB ONE ×3 (01:40→17:23)
[2020-12-20] MEDS: PIPERACILLIN/TAZOB 4.5 GM 4.5 GM in DEXTROSE 5%-WATER 100 ML IVPB SCH ×3 (01:57→17:56)
[2020-12-20] MEDS: HYDROCORTISONE SOD SUCCINATE 100 MG/2 ML VIAL IVPUSH SCH ×4 (02:03→18:30)
[2020-12-20] MEDS: FENTANYL NS IVPB 500 MCG/100 ML BAG IVPB SCH ×4 (04:30→18:00)
[2020-12-20 06:58] LABS: BASO % 0.1 % (0-2.0); HEMATOCRIT 25.4 % (35.4-49); HEMOGLOBIN 8.5 GM/dL (11.7-16.9); LYMPH % 4.9 % (8-40); MCH 34.1 pg (25.7-33.7); MCHC 33.4 g/dl (32.0-35.9); MEAN PLT VOLUME 11.3 fl (7.5-11.1); PLATELET COUNT 145 K/MM3 (134-434); RBC 2.49 M/mm3 (4.00-5.60); WHITE BLOOD COUNT 13.6 K/mm3 (4.0-10.0)
[2020-12-20 07:19] LABS: CHLORIDE 102 mmol/L (98-107); SODIUM 144 mmol/L (136-145)
[2020-12-20 07:29] LABS: BLOOD UREA NITROGEN 23.1 mg/dL (7-18); GLUCOSE,RANDOM 300 mg/dL (74-106)
[2020-12-20 07:30] LABS: ALBUMIN 2.3 g/dl (3.4-5.0); ANION GAP 3 MMOL/L (8-16); CO2 39 mmol/L (21-32); MAGNESIUM 2.5 mg/dL (1.8-2.4)
[2020-12-20 07:33] LABS: BILIRUBIN,TOTAL 0.8 mg/dL (0.2-1); CREATININE 0.6 mg/dL (0.55-1.3); SGOT/AST 59 U/L (15-37); SGPT/ALT 38 U/L (13-61); TOT PROT 4.8 g/dl (6.4-8.2)
[2020-12-20 07:42] LABS: ALK PHOS 342 U/L (45-117); CALCIUM 6.9 mg/dL (8.5-10.1)
[2020-12-20 08:47] LABS: ANISOCYTOSIS 2+; MACROCYTOSIS 2+; PLATELET ESTIMATE DECREASED
[2020-12-20] MEDS ORDERED: CALCIUM GLUC IN NACL, ISO-OSM 1 GM/50 ML BAG IVPB ONE (09:00)
[2020-12-20] MEDS ORDERED: MIDAZOLAM IN 0.9 % SOD.CHLORID 1 MG/1 ML PLAST..BAG ONE (09:23)
[2020-12-20] MEDS ORDERED: PT OWN MED DRAWER 7, Y5N ONE (09:25)
[2020-12-20] MEDS: AMINO ACIDS/PROTEIN HYDROLYS 30 ML LIQUID.PKT PO SCH ×2 (09:34→17:52)
[2020-12-20] MEDS: CALCITRIOL 1 MCG/ML BOT GT SCH ×2 (09:34→23:07)
[2020-12-20] MEDS: MIDAZOLAM IN 0.9 % SOD.CHLORID 100 MG/100 ML PLAST..BAG IVPB SCH (10:09)
[2020-12-20] MEDS: LACTULOSE 20 GM/30 ML UDC (FOR ORAL USE ONLY) NGT SCH ×2 (10:10→21:19)
[2020-12-20] MEDS: THIAMINE HCL 200 MG/2 ML VIAL IVPB SCH (10:10)
[2020-12-20] MEDS: PANTOPRAZOLE SODIUM 40 MG VIAL IVPUSH SCH (10:10)
[2020-12-20] MEDS ORDERED: FUROSEMIDE 40 MG/4 ML INJECTABLE VIAL IVPB ONE (10:15)
[2020-12-20] MEDS: ALBUMIN HUMAN 25% 100 ML VIAL IVPB SCH ×2 (10:24→17:56)
[2020-12-20] MEDS: POTASSIUM CHLORIDE ORAL LIQUID 20 MEQ/15 ML PO SCH ×2 (10:28→21:19)
[2020-12-20] MEDS ORDERED: FUROSEMIDE INJECTION 100 MG in DEXTROSE 5%-WATER - 90 ML IVPB SCH (10:45)
[2020-12-20] MEDS: POTASSIUM CHLORIDE 20 MEQ PREMIX IVPB 100 ML IVPB SCH ×2 (11:05→11:48)
[2020-12-20 17:10] VITALS: BMI 33.8
[2020-12-20] MEDS: SPIRONOLACTONE 25 MG TABLET PO SCH (17:51)
[2020-12-20 19:48] LABS: BLOOD UREA NITROGEN 28.6 mg/dL (7-18); CALCIUM 7.3 mg/dL (8.5-10.1)
[2020-12-20 19:53] LABS: CREATININE 0.7 mg/dL (0.55-1.3)
[2020-12-20] MEDS: CHLORHEXIDINE GLUCONATE 4% CLEANSER FOR DECOLONIZATION TP SCH (21:19)
[2020-12-21] MEDS ORDERED: DEXTROSE 5%-WATER 100 ML IVPB ONE ×3 (01:25→16:57)
[2020-12-21] MEDS ORDERED: PIPERACILLIN/TAZOBACTAM 4.5 GM VIAL IVPB ONE ×3 (01:25→16:57)
[2020-12-21] MEDS: INSULIN SLIDING SCALE (NOVOLOG) 1 VIAL SQ SCH ×4 (01:47→17:09)
[2020-12-21] MEDS: FENTANYL NS IVPB 500 MCG/100 ML BAG IVPB SCH ×3 (01:47→15:30)
[2020-12-21] MEDS: MIDAZOLAM IN 0.9 % SOD.CHLORID 100 MG/100 ML PLAST..BAG IVPB SCH ×2 (01:47→09:45)
[2020-12-21] MEDS: HYDROCORTISONE SOD SUCCINATE 100 MG/2 ML VIAL IVPUSH SCH ×3 (01:49→17:22)
[2020-12-21] MEDS: PIPERACILLIN/TAZOB 4.5 GM 4.5 GM in DEXTROSE 5%-WATER 100 ML IVPB SCH ×3 (01:49→17:09)
[2020-12-21 07:16] LABS: BASO % 0.1 % (0-2.0); HEMATOCRIT 23.3 % (35.4-49); HEMOGLOBIN 7.6 GM/dL (11.7-16.9); LYMPH % 4.3 % (8-40); MCH 33.8 pg (25.7-33.7); MCHC 32.6 g/dl (32.0-35.9); MEAN CELL VOLUME 103.9 fl (80-96); MEAN PLT VOLUME 11.8 fl (7.5-11.1); MONO % 4.4 % (3.8-10.2); NEUT % 91.2 % (42.8-82.8); RBC 2.25 M/mm3 (4.00-5.60); RDW 17.6 % (11.9-15.9); WHITE BLOOD COUNT 11.9 K/mm3 (4.0-10.0)
[2020-12-21 07:47] LABS: ALBUMIN 2.5 g/dl (3.4-5.0); BLOOD UREA NITROGEN 28.3 mg/dL (7-18); CALCIUM 7.2 mg/dL (8.5-10.1); MAGNESIUM 2.7 mg/dL (1.8-2.4)
[2020-12-21 07:50] LABS: BILIRUBIN,TOTAL 0.8 mg/dL (0.2-1); CREATININE 0.7 mg/dL (0.55-1.3)
[2020-12-21 07:51] LABS: TOT PROT 4.8 g/dl (6.4-8.2)
[2020-12-21] MEDS: AMINO ACIDS/PROTEIN HYDROLYS 30 ML LIQUID.PKT PO SCH ×2 (08:00→17:09)
[2020-12-21] MEDS ORDERED: dilTIAZem HCL 125 MG/25 ML - 25 ML VIAL ONE (08:38)
[2020-12-21] MEDS ORDERED: dilTIAZem HCL 50 MG/10 ML - 10 ML VIAL IVPUSH ONE (08:39)
[2020-12-21 08:57] LABS: ANISOCYTOSIS 1+; MACROCYTOSIS 0; PLATELET ESTIMATE DECREASED
[2020-12-21] MEDS: LACTULOSE 20 GM/30 ML UDC (FOR ORAL USE ONLY) NGT SCH ×2 (09:39→21:04)
[2020-12-21] MEDS: POTASSIUM CHLORIDE ORAL LIQUID 20 MEQ/15 ML PO SCH (09:39)
[2020-12-21] MEDS: PANTOPRAZOLE SODIUM 40 MG VIAL IVPUSH SCH (09:39)
[2020-12-21] MEDS: SPIRONOLACTONE 25 MG TABLET PO SCH (09:39)
[2020-12-21] MEDS: THIAMINE HCL 200 MG/2 ML VIAL IVPB SCH (09:40)
[2020-12-21] MEDS: CALCITRIOL 1 MCG/ML BOT GT SCH ×2 (09:40→21:04)
[2020-12-21] MEDS ORDERED: FUROSEMIDE 40 MG/4 ML INJECTABLE VIAL IVPUSH ONE (09:45)
[2020-12-21] MEDS ORDERED: PT OWN MED DRAWER 7, Y5N ONE ×3 (09:47→20:44)
[2020-12-21] MEDS: FUROSEMIDE INJECTION 100 MG in DEXTROSE 5%-WATER - 90 ML IVPB SCH (10:00)
[2020-12-21] MEDS: ALBUMIN HUMAN 25% 100 ML VIAL IVPB SCH (10:21)
[2020-12-21 17:20] LABS: BLOOD UREA NITROGEN 27.9 mg/dL (7-18); CALCIUM 7.4 mg/dL (8.5-10.1)
[2020-12-21 17:23] LABS: CREATININE 0.7 mg/dL (0.55-1.3)
[2020-12-21] MEDS: CHLORHEXIDINE GLUCONATE 4% CLEANSER FOR DECOLONIZATION TP SCH (21:04)
[2020-12-22] MEDS ORDERED: PIPERACILLIN/TAZOBACTAM 4.5 GM VIAL IVPB ONE ×3 (00:46→17:13)
[2020-12-22] MEDS ORDERED: DEXTROSE 5%-WATER 100 ML IVPB ONE ×3 (00:46→17:13)
[2020-12-22] MEDS: FENTANYL NS IVPB 500 MCG/100 ML BAG IVPB SCH ×2 (00:49→17:15)
[2020-12-22] MEDS: INSULIN SLIDING SCALE (NOVOLOG) 1 VIAL SQ SCH ×4 (00:49→17:33)
[2020-12-22] MEDS ORDERED: dilTIAZem HCL 50 MG/10 ML - 10 ML VIAL IVPUSH PRN (03:18)
[2020-12-22] MEDS: PIPERACILLIN/TAZOB 4.5 GM 4.5 GM in DEXTROSE 5%-WATER 100 ML IVPB SCH ×3 (03:18→17:18)
[2020-12-22] MEDS: HYDROCORTISONE SOD SUCCINATE 100 MG/2 ML VIAL IVPUSH SCH ×3 (03:19→17:33)
[2020-12-22 06:34] LABS: ARTERIAL BLD GAS O2 SATURATION 98.4 mmHg (95-98); ARTERIAL BLOOD GAS BASE EXCESS 13.3 mmol/L (-2-2); ARTERIAL BLOOD GAS PO2 109.5 mmHg (80-100); ARTERIAL BLOOD GAS pH 7.527 (7.350-7.450)
[2020-12-22 06:36] LABS: VENT MODE A/C
[2020-12-22 06:37] LABS: VENT RATE 23
[2020-12-22 07:10] LABS: HEMATOCRIT 22.1 % (35.4-49); HEMOGLOBIN 7.4 GM/dL (11.7-16.9); MCH 34.3 pg (25.7-33.7); MCHC 33.6 g/dl (32.0-35.9); MEAN PLT VOLUME 11.9 fl (7.5-11.1); PLATELET COUNT 129 K/MM3 (134-434); RBC 2.17 M/mm3 (4.00-5.60); RDW 17.9 % (11.9-15.9); WHITE BLOOD COUNT 11.6 K/mm3 (4.0-10.0)
[2020-12-22 07:33] LABS: BLOOD UREA NITROGEN 32.1 mg/dL (7-18); CALCIUM 7.2 mg/dL (8.5-10.1); MAGNESIUM 2.7 mg/dL (1.8-2.4)
[2020-12-22 07:36] LABS: CREATININE 0.7 mg/dL (0.55-1.3)
[2020-12-22 07:37] LABS: PHOSPHOROUS 2.4 mg/dL (2.5-4.9)
[2020-12-22] MEDS: AMINO ACIDS/PROTEIN HYDROLYS 30 ML LIQUID.PKT PO SCH ×2 (09:00→17:18)
[2020-12-22] MEDS: MIDAZOLAM IN 0.9 % SOD.CHLORID 100 MG/100 ML PLAST..BAG IVPB SCH ×2 (09:45→13:41)
[2020-12-22] MEDS ORDERED: PT OWN MED DRAWER 7, Y5N ONE ×2 (09:49→12:12)
[2020-12-22] MEDS: SPIRONOLACTONE 25 MG TABLET PO SCH (10:00)
[2020-12-22] MEDS: PANTOPRAZOLE SODIUM 40 MG VIAL IVPUSH SCH (10:00)
[2020-12-22] MEDS: CALCITRIOL 1 MCG/ML BOT GT SCH ×2 (10:00→21:26)
[2020-12-22] MEDS: THIAMINE HCL 200 MG/2 ML VIAL IVPB SCH (10:00)
[2020-12-22] MEDS: FUROSEMIDE INJECTION 100 MG in DEXTROSE 5%-WATER - 90 ML IVPB SCH (10:00)
[2020-12-22] MEDS ORDERED: POTASSIUM CHLORIDE ORAL LIQUID 20 MEQ/15 ML GT ONE (10:28)
[2020-12-22] MEDS ORDERED: DEXMEDETOMIDINE IN 0.9 % NACL 200 MCG/50 ML EACH IVPB SCH (10:45)
[2020-12-22] MEDS: KCL 10 MEQ IVPB 10 MEQ/100 ML INFUS.BAG IVPB SCH ×3 (11:08→13:10)
[2020-12-22] MEDS: DEXMEDETOMIDINE IN 0.9 % NACL 400 MCG/100 ML VIAL IVPB SCH (13:20)
[2020-12-22] MEDS: ALBUMIN HUMAN 25% 100 ML VIAL IVPB SCH ×2 (14:00→18:34)
[2020-12-22] MEDS: ACETAMINOPHEN 325 MG TABLET (FP) PO PRN (17:19)
[2020-12-22] MEDS: CHLORHEXIDINE GLUCONATE 4% CLEANSER FOR DECOLONIZATION TP SCH (21:25)
[2020-12-22] MEDS: METOPROLOL TARTRATE 25 MG TABLET (FP) GT SCH (21:25)
[2020-12-23] MEDS ORDERED: PIPERACILLIN/TAZOBACTAM 4.5 GM VIAL IVPB ONE ×2 (00:13→09:12)
[2020-12-23] MEDS ORDERED: DEXTROSE 5%-WATER 100 ML IVPB ONE ×2 (00:13→09:12)
[2020-12-23] MEDS: INSULIN SLIDING SCALE (NOVOLOG) 1 VIAL SQ SCH ×4 (00:29→17:41)
[2020-12-23] MEDS: FENTANYL NS IVPB 500 MCG/100 ML BAG IVPB SCH ×2 (02:29→05:10)
[2020-12-23] MEDS: PIPERACILLIN/TAZOB 4.5 GM 4.5 GM in DEXTROSE 5%-WATER 100 ML IVPB SCH ×2 (02:29→09:22)
[2020-12-23] MEDS: HYDROCORTISONE SOD SUCCINATE 100 MG/2 ML VIAL IVPUSH SCH ×3 (02:31→20:16)
[2020-12-23 06:10] LABS: BASO % 0.2 % (0-2.0); HEMATOCRIT 23.6 % (35.4-49); HEMOGLOBIN 7.9 GM/dL (11.7-16.9); LYMPH % 4.3 % (8-40); MCH 34.6 pg (25.7-33.7); MCHC 33.7 g/dl (32.0-35.9); MEAN CELL VOLUME 102.7 fl (80-96); MEAN PLT VOLUME 11.5 fl (7.5-11.1); MONO % 5.2 % (3.8-10.2); NEUT % 90.3 % (42.8-82.8); PLATELET COUNT 145 K/MM3 (134-434); WHITE BLOOD COUNT 12.9 K/mm3 (4.0-10.0)
[2020-12-23 06:27] LABS: CHLORIDE 101 mmol/L (98-107); SODIUM 145 mmol/L (136-145)
[2020-12-23 06:30] LABS: ALBUMIN 2.8 g/dl (3.4-5.0); BLOOD UREA NITROGEN 38.3 mg/dL (7-18); CALCIUM 7.3 mg/dL (8.5-10.1); CO2 38 mmol/L (21-32); GLUCOSE,RANDOM 246 mg/dL (74-106); MAGNESIUM 2.7 mg/dL (1.8-2.4)
[2020-12-23 06:33] LABS: CREATININE 0.8 mg/dL (0.55-1.3); SGOT/AST 31 U/L (15-37); SGPT/ALT 32 U/L (13-61)
[2020-12-23 06:35] LABS: BILIRUBIN,TOTAL 1.1 mg/dL (0.2-1)
[2020-12-23 06:42] LABS: ALK PHOS 240 U/L (45-117); ANION GAP 5 MMOL/L (8-16)
[2020-12-23] MEDS ORDERED: POTASSIUM CHLORIDE TABS 10 MEQ TABLET.ER (FP) PO ONE (07:22)
[2020-12-23] MEDS: AMINO ACIDS/PROTEIN HYDROLYS 30 ML LIQUID.PKT PO SCH ×2 (07:24→17:39)
[2020-12-23] MEDS: KCL 10 MEQ IVPB 10 MEQ/100 ML INFUS.BAG IVPB SCH ×5 (07:24→21:50)
[2020-12-23] MEDS ORDERED: POTASSIUM CHLORIDE ORAL LIQUID 20 MEQ/15 ML PO ONE ×2 (07:25→20:48)
[2020-12-23] MEDS: NOREPINEPHRINE NS PREMIX 8,000 MCG/500 ML BAG IVPB SCH (07:29)
[2020-12-23] MEDS ORDERED: MAGNESIUM SULF 50% (8.12 MEQ/2 ML-1 GM VIAL) IVPB ONE (08:54)
[2020-12-23] MEDS ORDERED: PT OWN MED DRAWER 7, Y5N ONE ×2 (09:12→22:01)
[2020-12-23] MEDS: THIAMINE HCL 200 MG/2 ML VIAL IVPB SCH (09:22)
[2020-12-23] MEDS: CALCITRIOL 1 MCG/ML BOT GT SCH ×2 (09:22→22:10)
[2020-12-23] MEDS: MIDAZOLAM IN 0.9 % SOD.CHLORID 100 MG/100 ML PLAST..BAG IVPB SCH (09:23)
[2020-12-23] MEDS: FUROSEMIDE INJECTION 100 MG in DEXTROSE 5%-WATER - 90 ML IVPB SCH (09:23)
[2020-12-23] MEDS: METOPROLOL TARTRATE 25 MG TABLET (FP) GT SCH ×3 (09:23→22:10)
[2020-12-23] MEDS: PANTOPRAZOLE SODIUM 40 MG VIAL IVPUSH SCH (09:23)
[2020-12-23] MEDS: SPIRONOLACTONE 25 MG TABLET PO SCH ×2 (09:23→10:38)
[2020-12-23] MEDS ORDERED: VASOPRESSIN 20 UNITS/ML VIAL IV ONE (10:23)
[2020-12-23] MEDS: VASOPRESSIN 40 UNITS in SODIUM CHLORIDE 98 ML IVPB SCH (10:25)
[2020-12-23] MEDS: DEXMEDETOMIDINE IN 0.9 % NACL 400 MCG/100 ML VIAL IVPB SCH (11:15)
[2020-12-23] MEDS ORDERED: ALBUMIN HUMAN 25% 12.5 GM/50 ML VIAL IVPB ONE (11:21)
[2020-12-23 12:43] LABS: HEMATOCRIT 23.8 % (35.4-49); LYMPH % 3.9 % (8-40); MCH 34.2 pg (25.7-33.7); MCHC 33.4 g/dl (32.0-35.9); MEAN CELL VOLUME 102.4 fl (80-96); MONO % 5.9 % (3.8-10.2); NEUT % 90.2 % (42.8-82.8); PLATELET COUNT 157 K/MM3 (134-434); RBC 2.33 M/mm3 (4.00-5.60); RDW 17.5 % (11.9-15.9); WHITE BLOOD COUNT 13.3 K/mm3 (4.0-10.0)
[2020-12-23 12:58] LABS: BLOOD UREA NITROGEN 35.6 mg/dL (7-18); CALCIUM 7.5 mg/dL (8.5-10.1); MAGNESIUM 2.7 mg/dL (1.8-2.4)
[2020-12-23 13:02] LABS: CREATININE 0.8 mg/dL (0.55-1.3)
[2020-12-23] MEDS ORDERED: POTASSIUM CHLORIDE ORAL LIQUID 20 MEQ/15 ML GT ONE ×4 (13:38→21:00)
[2020-12-23] MEDS: ACETAMINOPHEN 325 MG TABLET (FP) PO PRN (17:39)
[2020-12-23 20:01] LABS: CHLORIDE 104 mmol/L (98-107); SODIUM 146 mmol/L (136-145)
[2020-12-23 20:02] LABS: CALCIUM 7.4 mg/dL (8.5-10.1)
[2020-12-23 20:03] LABS: BLOOD UREA NITROGEN 37.1 mg/dL (7-18); CO2 36 mmol/L (21-32); GLUCOSE,RANDOM 259 mg/dL (74-106); MAGNESIUM 2.7 mg/dL (1.8-2.4)
[2020-12-23 20:06] LABS: CREATININE 0.8 mg/dL (0.55-1.3)
[2020-12-23 20:07] LABS: PHOSPHOROUS 2.4 mg/dL (2.5-4.9)
[2020-12-23 20:16] LABS: ANION GAP 6 MMOL/L (8-16)
[2020-12-23] MEDS ORDERED: POTASSIUM PHOSPHATE 30 MM in SODIUM CHLORIDE 250 ML IVPB ONE (20:53)
[2020-12-23 21:25] LABS: ARTERIAL BLD GAS O2 SATURATION 97.4 mmHg (95-98); ARTERIAL BLOOD GAS BASE EXCESS 8.8 mmol/L (-2-2); ARTERIAL BLOOD GAS PO2 88.9 mmHg (80-100); ARTERIAL BLOOD GAS pH 7.505 (7.350-7.450)
[2020-12-23 21:28] LABS: VENT MODE A/C; VENT RATE 18
[2020-12-23] MEDS: CHLORHEXIDINE GLUCONATE 4% CLEANSER FOR DECOLONIZATION TP SCH (21:50)
[2020-12-23] MEDS ORDERED: POTASSIUM CHLORIDE TABS 20 MEQ TABLET.ER (FP) PO SCH (22:00)
[2020-12-23] MEDS ORDERED: dilTIAZem HCL 50 MG/10 ML - 10 ML VIAL IVPUSH ONE (22:28)
[2020-12-24] MEDS: INSULIN SLIDING SCALE (NOVOLOG) 1 VIAL SQ SCH ×4 (00:15→17:35)
[2020-12-24 01:20] LABS: MAGNESIUM 2.6 mg/dL (1.8-2.4)
[2020-12-24] MEDS ORDERED: POTASSIUM CHLORIDE ORAL LIQUID 20 MEQ/15 ML PO ONE (03:15)
[2020-12-24] MEDS: FUROSEMIDE INJECTION 100 MG in DEXTROSE 5%-WATER - 90 ML IVPB SCH ×2 (06:32→17:35)
[2020-12-24 07:42] LABS: BASO % 0.3 % (0-2.0); EOS % 0.6 % (0-4.5); HEMATOCRIT 22.8 % (35.4-49); HEMOGLOBIN 7.8 GM/dL (11.7-16.9); LYMPH % 8.3 % (8-40); MCH 35.4 pg (25.7-33.7); MCHC 34.1 g/dl (32.0-35.9); MEAN CELL VOLUME 103.9 fl (80-96); MEAN PLT VOLUME 11.9 fl (7.5-11.1); MONO % 6.2 % (3.8-10.2); NEUT % 84.6 % (42.8-82.8); PLATELET COUNT 144 K/MM3 (134-434); RBC 2.19 M/mm3 (4.00-5.60); RDW 18.2 % (11.9-15.9); WHITE BLOOD COUNT 10.4 K/mm3 (4.0-10.0)
[2020-12-24 08:35] LABS: ALBUMIN 2.5 g/dl (3.4-5.0); BLOOD UREA NITROGEN 32.1 mg/dL (7-18); CALCIUM 7.2 mg/dL (8.5-10.1); MAGNESIUM 2.7 mg/dL (1.8-2.4)
[2020-12-24 08:38] LABS: CREATININE 0.6 mg/dL (0.55-1.3); PHOSPHOROUS 3.4 mg/dL (2.5-4.9)
[2020-12-24 08:40] LABS: BILIRUBIN,TOTAL 0.8 mg/dL (0.2-1); TOT PROT 4.7 g/dl (6.4-8.2)
[2020-12-24] MEDS ORDERED: PT OWN MED DRAWER 7, Y5N ONE ×2 (09:20→21:05)
[2020-12-24] MEDS: CALCITRIOL 1 MCG/ML BOT GT SCH ×2 (09:34→23:26)
[2020-12-24] MEDS: SPIRONOLACTONE 25 MG TABLET PO SCH (09:35)
[2020-12-24] MEDS: AMINO ACIDS/PROTEIN HYDROLYS 30 ML LIQUID.PKT PO SCH ×2 (09:35→17:35)
[2020-12-24] MEDS: THIAMINE HCL 200 MG/2 ML VIAL IVPB SCH (09:36)
[2020-12-24] MEDS: HYDROCORTISONE SOD SUCCINATE 100 MG/2 ML VIAL IVPUSH SCH ×2 (09:37→21:14)
[2020-12-24] MEDS: METOPROLOL TARTRATE 25 MG TABLET (FP) GT SCH (09:37)
[2020-12-24] MEDS: FENTANYL NS IVPB 500 MCG/100 ML BAG IVPB SCH ×3 (09:37→17:58)
[2020-12-24] MEDS: PANTOPRAZOLE SODIUM 40 MG VIAL IVPUSH SCH (09:38)
[2020-12-24] MEDS: MIDAZOLAM IN 0.9 % SOD.CHLORID 100 MG/100 ML PLAST..BAG IVPB SCH (12:17)
[2020-12-24] MEDS: VASOPRESSIN 40 UNITS in SODIUM CHLORIDE 98 ML IVPB SCH ×2 (12:17→18:21)
[2020-12-24] MEDS: HEPARIN NA (PORCINE) 5,000 UNITS/ML 1ML VIAL SQ SCH ×2 (13:09→21:31)
[2020-12-24] MEDS: DEXMEDETOMIDINE IN 0.9 % NACL 400 MCG/100 ML VIAL IVPB SCH (13:20)
[2020-12-24] MEDS: ACETAMINOPHEN 325 MG TABLET (FP) PO PRN (18:20)
[2020-12-24] MEDS: CHLORHEXIDINE GLUCONATE 4% CLEANSER FOR DECOLONIZATION TP SCH (21:14)
[2020-12-24] MEDS: METOPROLOL TARTRATE 50 MG TABLET (FP) GT SCH (21:15)
[2020-12-25] MEDS: INSULIN SLIDING SCALE (NOVOLOG) 1 VIAL SQ SCH ×4 (03:31→17:33)
[2020-12-25] MEDS ORDERED: dilTIAZem HCL 50 MG/10 ML - 10 ML VIAL IVPUSH ONE (03:48)
[2020-12-25] MEDS ORDERED: ACETAMINOPHEN 1000 MG/100 ML VIAL (NON FORMULARY) IVPB ONE (03:48)
[2020-12-25] MEDS: FENTANYL NS IVPB 500 MCG/100 ML BAG IVPB SCH ×4 (05:16→21:03)
[2020-12-25] MEDS: HEPARIN NA (PORCINE) 5,000 UNITS/ML 1ML VIAL SQ SCH ×3 (05:59→21:03)
[2020-12-25 07:31] LABS: BASO % 0.1 % (0-2.0); EOS % 0.1 % (0-4.5); HEMATOCRIT 22.5 % (35.4-49); HEMOGLOBIN 7.6 GM/dL (11.7-16.9); LYMPH % 5.9 % (8-40); MCH 34.6 pg (25.7-33.7); MCHC 33.5 g/dl (32.0-35.9); MEAN CELL VOLUME 103.1 fl (80-96); MEAN PLT VOLUME 11.6 fl (7.5-11.1); MONO % 6.2 % (3.8-10.2); NEUT % 87.7 % (42.8-82.8); PLATELET COUNT 132 K/MM3 (134-434); RBC 2.19 M/mm3 (4.00-5.60); RDW 18.1 % (11.9-15.9); WHITE BLOOD COUNT 12.3 K/mm3 (4.0-10.0)
[2020-12-25 07:35] LABS: CHLORIDE 106 mmol/L (98-107); SODIUM 147 mmol/L (136-145)
[2020-12-25 07:37] LABS: CALCIUM 7.4 mg/dL (8.5-10.1)
[2020-12-25 07:38] LABS: ALBUMIN 2.5 g/dl (3.4-5.0); BLOOD UREA NITROGEN 34.2 mg/dL (7-18); CO2 35 mmol/L (21-32); GLUCOSE,RANDOM 254 mg/dL (74-106); MAGNESIUM 2.5 mg/dL (1.8-2.4)
[2020-12-25 07:41] LABS: CREATININE 0.8 mg/dL (0.55-1.3); PHOSPHOROUS 3.5 mg/dL (2.5-4.9); SGOT/AST 103 U/L (15-37); SGPT/ALT 51 U/L (13-61)
[2020-12-25 07:42] LABS: BILIRUBIN,TOTAL 0.9 mg/dL (0.2-1); TOT PROT 4.8 g/dl (6.4-8.2)
[2020-12-25 07:45] LABS: ALK PHOS 294 U/L (45-117); ANION GAP 6 MMOL/L (8-16)
[2020-12-25] MEDS: POTASSIUM CHLORIDE 20 MEQ PREMIX IVPB 100 ML IVPB SCH ×6 (08:40→23:00)
[2020-12-25] MEDS ORDERED: POTASSIUM CHLORIDE TABS 20 MEQ TABLET.ER (FP) PO ONE ×2 (08:45→09:00)
[2020-12-25] MEDS ORDERED: POTASSIUM CHLORIDE 20 MEQ PREMIX IVPB 100 ML IVPB SCH (09:00)
[2020-12-25] MEDS: AMINO ACIDS/PROTEIN HYDROLYS 30 ML LIQUID.PKT PO SCH ×2 (09:00→17:26)
[2020-12-25] MEDS ORDERED: PT OWN MED DRAWER 7, Y5N ONE (09:27)
[2020-12-25] MEDS: MIDAZOLAM IN 0.9 % SOD.CHLORID 100 MG/100 ML PLAST..BAG IVPB SCH (09:45)
[2020-12-25] MEDS: HYDROCORTISONE SOD SUCCINATE 100 MG/2 ML VIAL IVPUSH SCH (09:50)
[2020-12-25] MEDS: SPIRONOLACTONE 25 MG TABLET PO SCH (09:50)
[2020-12-25] MEDS: METOPROLOL TARTRATE 50 MG TABLET (FP) GT SCH ×2 (09:51→21:04)
[2020-12-25] MEDS: THIAMINE HCL 200 MG/2 ML VIAL IVPB SCH (09:51)
[2020-12-25] MEDS: PANTOPRAZOLE SODIUM 40 MG VIAL IVPUSH SCH (09:51)
[2020-12-25] MEDS: CALCITRIOL 1 MCG/ML BOT GT SCH ×2 (09:51→21:04)
[2020-12-25] MEDS: VASOPRESSIN 40 UNITS in SODIUM CHLORIDE 98 ML IVPB SCH ×2 (10:00→15:49)
[2020-12-25 10:43] LABS: ANISOCYTOSIS 1+; MACROCYTOSIS 0; PLATELET ESTIMATE DECREASED; TOXIC GRANULATION 1+
[2020-12-25] MEDS: DEXMEDETOMIDINE IN 0.9 % NACL 400 MCG/100 ML VIAL IVPB SCH ×2 (11:00→15:18)
[2020-12-25 19:31] LABS: CALCIUM 7.2 mg/dL (8.5-10.1)
[2020-12-25 19:32] LABS: BLOOD UREA NITROGEN 37.1 mg/dL (7-18); MAGNESIUM 2.6 mg/dL (1.8-2.4)
[2020-12-25 19:36] LABS: CREATININE 0.8 mg/dL (0.55-1.3)
[2020-12-25] MEDS ORDERED: POTASSIUM CHLORIDE ORAL LIQUID 20 MEQ/15 ML PO ONE (20:35)
[2020-12-25] MEDS: CHLORHEXIDINE GLUCONATE 4% CLEANSER FOR DECOLONIZATION TP SCH (21:03)
[2020-12-25] MEDS: FUROSEMIDE INJECTION 100 MG in DEXTROSE 5%-WATER - 90 ML IVPB SCH (22:00)
[2020-12-26] MEDS: INSULIN SLIDING SCALE (NOVOLOG) 1 VIAL SQ SCH ×3 (00:35→17:43)
[2020-12-26] MEDS: FENTANYL NS IVPB 500 MCG/100 ML BAG IVPB SCH ×3 (01:12→23:07)
[2020-12-26] MEDS: HEPARIN NA (PORCINE) 5,000 UNITS/ML 1ML VIAL SQ SCH ×3 (05:42→21:14)
[2020-12-26 07:13] LABS: BASO % 0.2 % (0-2.0); EOS % 0.1 % (0-4.5); HEMATOCRIT 22.3 % (35.4-49); HEMOGLOBIN 7.6 GM/dL (11.7-16.9); LYMPH % 6.9 % (8-40); MCH 35.3 pg (25.7-33.7); MCHC 34.1 g/dl (32.0-35.9); MEAN CELL VOLUME 103.4 fl (80-96); MEAN PLT VOLUME 11.9 fl (7.5-11.1); MONO % 7.6 % (3.8-10.2); NEUT % 85.2 % (42.8-82.8); PLATELET COUNT 118 K/MM3 (134-434); RBC 2.16 M/mm3 (4.00-5.60); RDW 17.8 % (11.9-15.9); WHITE BLOOD COUNT 10.4 K/mm3 (4.0-10.0)
[2020-12-26] MEDS: AMINO ACIDS/PROTEIN HYDROLYS 30 ML LIQUID.PKT PO SCH (07:28)
[2020-12-26 07:35] LABS: ALBUMIN 2.3 g/dl (3.4-5.0); BLOOD UREA NITROGEN 44.9 mg/dL (7-18); CALCIUM 7.1 mg/dL (8.5-10.1); MAGNESIUM 2.5 mg/dL (1.8-2.4)
[2020-12-26 07:38] LABS: CREATININE 1.1 mg/dL (0.55-1.3)
[2020-12-26 07:39] LABS: PHOSPHOROUS 3.2 mg/dL (2.5-4.9)
[2020-12-26 07:40] LABS: BILIRUBIN,TOTAL 1.3 mg/dL (0.2-1); TOT PROT 4.8 g/dl (6.4-8.2)
[2020-12-26] MEDS: MIDAZOLAM IN 0.9 % SOD.CHLORID 100 MG/100 ML PLAST..BAG IVPB SCH (09:05)
[2020-12-26] MEDS ORDERED: PT OWN MED DRAWER 7, Y5N ONE (09:15)
[2020-12-26] MEDS: POTASSIUM CHLORIDE 20 MEQ PREMIX IVPB 100 ML IVPB SCH ×6 (09:52→23:03)
[2020-12-26] MEDS: PANTOPRAZOLE SODIUM 40 MG VIAL IVPUSH SCH (10:15)
[2020-12-26] MEDS: THIAMINE HCL 200 MG/2 ML VIAL IVPB SCH (10:15)
[2020-12-26] MEDS ORDERED: REGADENOSON 0.4 MG/5 ML PRE-FILLED SYRINGE IVPUSH ONE ×2 (10:17→10:30)
[2020-12-26] MEDS ORDERED: DEXTROSE 5%-WATER 100 ML IVPB ONE ×2 (11:30→17:14)
[2020-12-26] MEDS ORDERED: MEROPENEM 1 GM VIAL (RESTRICTED TO ID) IVPB ONE ×2 (11:30→17:14)
[2020-12-26] MEDS: MEROPENEM 1 GM in DEXTROSE 5%-WATER 100 ML IVPB SCH ×2 (11:34→17:16)
[2020-12-26] MEDS: SPIRONOLACTONE 25 MG TABLET PO SCH (11:35)
[2020-12-26] MEDS: METOPROLOL TARTRATE 50 MG TABLET (FP) GT SCH ×3 (11:35→21:13)
[2020-12-26] MEDS: VASOPRESSIN 40 UNITS in SODIUM CHLORIDE 98 ML IVPB SCH (11:35)
[2020-12-26] MEDS: CALCITRIOL 1 MCG/ML BOT GT SCH ×2 (11:35→21:21)
[2020-12-26] MEDS: ACETAMINOPHEN 325 MG TABLET (FP) PO PRN (14:03)
[2020-12-26] MEDS: DEXMEDETOMIDINE IN 0.9 % NACL 400 MCG/100 ML VIAL IVPB SCH ×2 (14:45→23:07)
[2020-12-26 17:25] LABS: CALCIUM 7.5 mg/dL (8.5-10.1)
[2020-12-26 17:26] LABS: BLOOD UREA NITROGEN 47.5 mg/dL (7-18)
[2020-12-26 17:29] LABS: CREATININE 1.4 mg/dL (0.55-1.3)
[2020-12-26] MEDS ORDERED: POTASSIUM CHLORIDE ORAL LIQUID 20 MEQ/15 ML PO ONE (17:40)
[2020-12-26] MEDS: ACETAMINOPHEN 1000 MG/100 ML VIAL (NON FORMULARY) IVPB PRN (19:58)
[2020-12-26] MEDS: CHLORHEXIDINE GLUCONATE 4% CLEANSER FOR DECOLONIZATION TP SCH (21:13)
[2020-12-26] MEDS: FUROSEMIDE INJECTION 100 MG in DEXTROSE 5%-WATER - 90 ML IVPB SCH (21:20)
[2020-12-27] MEDS ORDERED: DEXTROSE 5%-WATER 100 ML IVPB ONE ×3 (01:08→17:17)
[2020-12-27] MEDS ORDERED: MEROPENEM 1 GM VIAL (RESTRICTED TO ID) IVPB ONE ×3 (01:08→17:17)
[2020-12-27] MEDS: INSULIN SLIDING SCALE (NOVOLOG) 1 VIAL SQ SCH ×4 (01:16→17:21)
[2020-12-27] MEDS: MEROPENEM 1 GM in DEXTROSE 5%-WATER 100 ML IVPB SCH ×3 (01:16→17:22)
[2020-12-27] MEDS: VASOPRESSIN 40 UNITS in SODIUM CHLORIDE 98 ML IVPB SCH ×3 (02:30→17:22)
[2020-12-27] MEDS: FUROSEMIDE INJECTION 100 MG in DEXTROSE 5%-WATER - 90 ML IVPB SCH ×3 (03:22→22:15)
[2020-12-27] MEDS: FENTANYL NS IVPB 500 MCG/100 ML BAG IVPB SCH ×3 (05:00→20:00)
[2020-12-27] MEDS: HEPARIN NA (PORCINE) 5,000 UNITS/ML 1ML VIAL SQ SCH ×3 (05:49→21:06)
[2020-12-27 06:38] LABS: BASO % 0.3 % (0-2.0); EOS % 0.2 % (0-4.5); HEMATOCRIT 22.4 % (35.4-49); HEMOGLOBIN 7.4 GM/dL (11.7-16.9); MEAN CELL VOLUME 103.1 fl (80-96); MEAN PLT VOLUME 12.8 fl (7.5-11.1); MONO % 6.6 % (3.8-10.2); NEUT % 82.9 % (42.8-82.8); PLATELET COUNT 113 K/MM3 (134-434); RBC 2.17 M/mm3 (4.00-5.60); RDW 17.1 % (11.9-15.9); WHITE BLOOD COUNT 9.6 K/mm3 (4.0-10.0)
[2020-12-27 06:41] LABS: CALCIUM 7.4 mg/dL (8.5-10.1)
[2020-12-27 06:42] LABS: ALBUMIN 2.1 g/dl (3.4-5.0); BLOOD UREA NITROGEN 48.7 mg/dL (7-18); MAGNESIUM 2.4 mg/dL (1.8-2.4)
[2020-12-27 06:45] LABS: CREATININE 1.4 mg/dL (0.55-1.3)
[2020-12-27 06:46] LABS: BILIRUBIN,TOTAL 0.9 mg/dL (0.2-1); PHOSPHOROUS 3.5 mg/dL (2.5-4.9)
[2020-12-27 06:47] LABS: TOT PROT 4.7 g/dl (6.4-8.2)
[2020-12-27] MEDS ORDERED: PT OWN MED DRAWER 7, Y5N ONE ×4 (09:10→21:12)
[2020-12-27] MEDS: PANTOPRAZOLE SODIUM 40 MG VIAL IVPUSH SCH (09:26)
[2020-12-27] MEDS: SPIRONOLACTONE 25 MG TABLET PO SCH (09:26)
[2020-12-27] MEDS: THIAMINE HCL 200 MG/2 ML VIAL IVPB SCH (09:26)
[2020-12-27] MEDS: CALCITRIOL 1 MCG/ML BOT GT SCH ×2 (09:27→21:35)
[2020-12-27] MEDS: AMINO ACIDS/PROTEIN HYDROLYS 30 ML LIQUID.PKT PO SCH (09:27)
[2020-12-27] MEDS: MIDAZOLAM IN 0.9 % SOD.CHLORID 100 MG/100 ML PLAST..BAG IVPB SCH (09:45)
[2020-12-27] MEDS: METOPROLOL TARTRATE 50 MG TABLET (FP) GT SCH ×2 (12:25→21:06)
[2020-12-27] MEDS: DEXMEDETOMIDINE IN 0.9 % NACL 400 MCG/100 ML VIAL IVPB SCH ×2 (14:22→21:36)
[2020-12-27] MEDS: NOREPINEPHRINE BITARTRATE 8,000 MCG/500 ML BAG IVPB SCH ×2 (19:45)
[2020-12-27 20:12] LABS: HEMATOCRIT 24.1 % (35.4-49); HEMOGLOBIN 8.1 GM/dL (11.7-16.9); MCH 34.6 pg (25.7-33.7); MCHC 33.6 g/dl (32.0-35.9); MEAN PLT VOLUME 12.5 fl (7.5-11.1); PLATELET COUNT 120 K/MM3 (134-434); RBC 2.33 M/mm3 (4.00-5.60); RDW 17.2 % (11.9-15.9); WHITE BLOOD COUNT 9.8 K/mm3 (4.0-10.0)
[2020-12-27 20:16] LABS: ALBUMIN 2.2 g/dl (3.4-5.0); BLOOD UREA NITROGEN 54.4 mg/dL (7-18); CALCIUM 8.2 mg/dL (8.5-10.1); MAGNESIUM 2.5 mg/dL (1.8-2.4)
[2020-12-27 20:18] LABS: INR 0.94 (0.83-1.09); PROTHROMBIN TIME (PATIENT) 11.4 SEC (9.7-13.0)
[2020-12-27 20:20] LABS: CREATININE 1.3 mg/dL (0.55-1.3); PHOSPHOROUS 3.5 mg/dL (2.5-4.9)
[2020-12-27 20:21] LABS: ACTIVATED PTT 24.7 SECONDS (25.2-36.5); BILIRUBIN,TOTAL 0.6 mg/dL (0.2-1); TOT PROT 5.1 g/dl (6.4-8.2)
[2020-12-27] MEDS: KCL 10 MEQ IVPB 10 MEQ/100 ML INFUS.BAG IVPB SCH ×3 (20:49→23:48)
[2020-12-27] MEDS ORDERED: KCL 10 MEQ IVPB 10 MEQ/100 ML INFUS.BAG IVPB SCH (21:00)
[2020-12-27] MEDS: CHLORHEXIDINE GLUCONATE 4% CLEANSER FOR DECOLONIZATION TP SCH (21:06)
[2020-12-27] MEDS: ACETAMINOPHEN 1000 MG/100 ML VIAL (NON FORMULARY) IVPB PRN (21:07)
[2020-12-27] MEDS: METOPROLOL TARTRATE 5 MG/5 ML VIAL IVPUSH PRN (22:15)
[2020-12-28] MEDS: INSULIN SLIDING SCALE (NOVOLOG) 1 VIAL SQ SCH ×4 (00:05→17:30)
[2020-12-28] MEDS ORDERED: DEXTROSE 5%-WATER 100 ML IVPB ONE ×2 (01:55→08:47)
[2020-12-28] MEDS ORDERED: MEROPENEM 1 GM VIAL (RESTRICTED TO ID) IVPB ONE ×2 (01:55→08:47)
[2020-12-28] MEDS: MEROPENEM 1 GM in DEXTROSE 5%-WATER 100 ML IVPB SCH ×2 (01:58→09:08)
[2020-12-28] MEDS: FENTANYL NS IVPB 500 MCG/100 ML BAG IVPB SCH ×4 (01:58→21:33)
[2020-12-28] MEDS: METOPROLOL TARTRATE 5 MG/5 ML VIAL IVPUSH PRN (02:31)
[2020-12-28] MEDS: VASOPRESSIN 40 UNITS in SODIUM CHLORIDE 98 ML IVPB SCH ×3 (04:03→17:33)
[2020-12-28] MEDS ORDERED: METOPROLOL TARTRATE 5 MG/5 ML VIAL IVPUSH STA (04:43)
[2020-12-28] MEDS: MIDAZOLAM IN 0.9 % SOD.CHLORID 100 MG/100 ML PLAST..BAG IVPB SCH ×3 (04:52→17:02)
[2020-12-28] MEDS ORDERED: METOPROLOL TARTRATE 5 MG/5 ML VIAL IVPUSH ONE ×2 (05:17→05:22)
[2020-12-28 06:15] LABS: BASO % 0.3 % (0-2.0); EOS % 2.7 % (0-4.5); HEMATOCRIT 24.4 % (35.4-49); LYMPH % 11.2 % (8-40); MCH 33.9 pg (25.7-33.7); MCHC 32.6 g/dl (32.0-35.9); MEAN CELL VOLUME 103.8 fl (80-96); MEAN PLT VOLUME 13.1 fl (7.5-11.1); NEUT % 79.8 % (42.8-82.8); PLATELET COUNT 111 K/MM3 (134-434); RBC 2.35 M/mm3 (4.00-5.60); RDW 17.3 % (11.9-15.9)
[2020-12-28 06:20] LABS: ARTERIAL BLD GAS O2 SATURATION 99.1 mmHg (95-98); ARTERIAL BLOOD GAS BASE EXCESS 7.7 mmol/L (-2-2); ARTERIAL BLOOD GAS PO2 149.9 mmHg (80-100); ARTERIAL BLOOD GAS pH 7.509 (7.350-7.450)
[2020-12-28 06:22] LABS: VENT MODE A/C; VENT RATE 18
[2020-12-28 06:32] LABS: BLOOD UREA NITROGEN 38.4 mg/dL (7-18); CALCIUM 7.9 mg/dL (8.5-10.1)
[2020-12-28 06:33] LABS: MAGNESIUM 2.3 mg/dL (1.8-2.4)
[2020-12-28 06:36] LABS: CREATININE 0.9 mg/dL (0.55-1.3); PHOSPHOROUS 2.7 mg/dL (2.5-4.9)
[2020-12-28 06:37] LABS: BILIRUBIN,TOTAL 0.7 mg/dL (0.2-1)
[2020-12-28] MEDS ORDERED: KCL 10 MEQ IVPB 10 MEQ/100 ML INFUS.BAG IVPB SCH ×2 (06:45→11:30)
[2020-12-28] MEDS ORDERED: MAGNESIUM SULF 50% (8.12 MEQ/2 ML-1 GM VIAL) ONE (07:38)
[2020-12-28] MEDS ORDERED: MAGNESIUM SULFATE IN WATER 2 GM/50 ML IVPB IVPB ONE (07:38)
[2020-12-28] MEDS: POTASSIUM CHLORIDE 20 MEQ PREMIX IVPB 100 ML IVPB SCH ×6 (08:22→21:54)
[2020-12-28] MEDS ORDERED: AMIODARONE IN DEXTROSE,ISO-OSM 150 MG/100 ML BAG IVPB ONE (08:30)
[2020-12-28] MEDS ORDERED: AMIODARONE IN DEXTROSE,ISO-OSM 360 MG/200 ML BAG IVPB ONE (08:40)
[2020-12-28] MEDS ORDERED: PT OWN MED DRAWER 7, Y5N ONE ×4 (08:52→16:46)
[2020-12-28] MEDS: PANTOPRAZOLE SODIUM 40 MG VIAL IVPUSH SCH (09:08)
[2020-12-28] MEDS: CALCITRIOL 1 MCG/ML BOT GT SCH ×2 (09:08→21:37)
[2020-12-28] MEDS: AMINO ACIDS/PROTEIN HYDROLYS 30 ML LIQUID.PKT PO SCH (09:08)
[2020-12-28] MEDS: THIAMINE HCL 200 MG/2 ML VIAL IVPB SCH (09:10)
[2020-12-28] MEDS: SPIRONOLACTONE 25 MG TABLET PO SCH (09:10)
[2020-12-28] MEDS: HEPARIN NA (PORCINE) 5,000 UNITS/ML 1ML VIAL SQ SCH ×2 (15:07→21:35)
[2020-12-28] MEDS: DEXMEDETOMIDINE IN 0.9 % NACL 400 MCG/100 ML VIAL IVPB SCH ×3 (15:08→21:32)
[2020-12-28] MEDS: FUROSEMIDE INJECTION 100 MG in DEXTROSE 5%-WATER - 90 ML IVPB SCH ×3 (17:31→22:15)
[2020-12-28] MEDS: ERTAPENEM SODIUM 1 GM in SODIUM CHLORIDE 50 ML IVPB SCH (17:32)
[2020-12-28 18:55] LABS: CHLORIDE 118 mmol/L (98-107); SODIUM 148 mmol/L (136-145)
[2020-12-28 18:57] LABS: BLOOD UREA NITROGEN 21.9 mg/dL (7-18); CO2 23 mmol/L (21-32); GLUCOSE,RANDOM 221 mg/dL (74-106)
[2020-12-28 19:00] LABS: CREATININE 0.4 mg/dL (0.55-1.3)
[2020-12-28 19:13] LABS: ANION GAP 7 MMOL/L (8-16); CALCIUM 6.1 mg/dL (8.5-10.1)
[2020-12-28] MEDS ORDERED: CALCIUM GLUCONATE 10% - 1,000 MG/10 ML VIAL IVPB ONE (19:39)
[2020-12-28] MEDS: NOREPINEPHRINE BITARTRATE 8,000 MCG/500 ML BAG IVPB SCH ×2 (19:45→21:32)
[2020-12-28] MEDS: CHLORHEXIDINE GLUCONATE 4% CLEANSER FOR DECOLONIZATION TP SCH (21:36)
[2020-12-29] MEDS: INSULIN SLIDING SCALE (NOVOLOG) 1 VIAL SQ SCH ×6 (00:15→17:56)
[2020-12-29] MEDS: FENTANYL NS IVPB 500 MCG/100 ML BAG IVPB SCH ×4 (01:25→18:25)
[2020-12-29] MEDS: VASOPRESSIN 40 UNITS in SODIUM CHLORIDE 98 ML IVPB SCH ×3 (02:00→15:48)
[2020-12-29] MEDS: MIDAZOLAM IN 0.9 % SOD.CHLORID 100 MG/100 ML PLAST..BAG IVPB SCH ×2 (03:00→09:45)
[2020-12-29] MEDS: METOPROLOL TARTRATE 5 MG/5 ML VIAL IVPUSH PRN ×2 (03:30→13:15)
[2020-12-29] MEDS: FUROSEMIDE INJECTION 100 MG in DEXTROSE 5%-WATER - 90 ML IVPB SCH ×2 (05:14→22:15)
[2020-12-29] MEDS: NOREPINEPHRINE BITARTRATE 8,000 MCG/500 ML BAG IVPB SCH ×2 (05:15→19:45)
[2020-12-29] MEDS: HEPARIN NA (PORCINE) 5,000 UNITS/ML 1ML VIAL SQ SCH ×3 (05:19→21:31)
[2020-12-29 06:15] LABS: ARTERIAL BLD GAS O2 SATURATION 99.2 mmHg (95-98); ARTERIAL BLOOD GAS BASE EXCESS 9.3 mmol/L (-2-2); ARTERIAL BLOOD GAS PO2 156.6 mmHg (80-100); ARTERIAL BLOOD GAS pH 7.554 (7.350-7.450)
[2020-12-29 06:19] LABS: VENT MODE A/C; VENT RATE 18
[2020-12-29] MEDS: ACETAMINOPHEN 1000 MG/100 ML VIAL (NON FORMULARY) IVPB PRN ×2 (06:35→18:25)
[2020-12-29 07:18] LABS: BASO % 0.6 % (0-2.0); EOS % 5.1 % (0-4.5); HEMATOCRIT 25.9 % (35.4-49); HEMOGLOBIN 8.5 GM/dL (11.7-16.9); LYMPH % 14.1 % (8-40); MCH 33.7 pg (25.7-33.7); MEAN CELL VOLUME 102.2 fl (80-96); MONO % 4.8 % (3.8-10.2); NEUT % 75.4 % (42.8-82.8); PLATELET COUNT 120 K/MM3 (134-434); RBC 2.53 M/mm3 (4.00-5.60); RDW 16.5 % (11.9-15.9)
[2020-12-29 07:38] LABS: ALBUMIN 2.4 g/dl (3.4-5.0); BLOOD UREA NITROGEN 24.1 mg/dL (7-18); MAGNESIUM 2.5 mg/dL (1.8-2.4)
[2020-12-29 07:41] LABS: CREATININE 0.7 mg/dL (0.55-1.3); TOT PROT 5.8 g/dl (6.4-8.2)
[2020-12-29 08:01] LABS: CALCIUM 8.8 mg/dL (8.5-10.1)
[2020-12-29] MEDS ORDERED: PT OWN MED DRAWER 7, Y5N ONE ×3 (08:09→18:10)
[2020-12-29] MEDS ORDERED: POTASSIUM CHLORIDE ORAL LIQUID 20 MEQ/15 ML PO ONE (08:15)
[2020-12-29] MEDS ORDERED: POTASSIUM PHOSPHATE 30 MM in SODIUM CHLORIDE 250 ML IVPB ONE (09:00)
[2020-12-29] MEDS: CALCITRIOL 1 MCG/ML BOT GT SCH ×2 (09:24→22:13)
[2020-12-29] MEDS: PANTOPRAZOLE SODIUM 40 MG VIAL IVPUSH SCH (09:25)
[2020-12-29] MEDS: ERTAPENEM SODIUM 1 GM in SODIUM CHLORIDE 50 ML IVPB SCH (09:26)
[2020-12-29] MEDS: THIAMINE HCL 200 MG/2 ML VIAL IVPB SCH (09:26)
[2020-12-29] MEDS: SPIRONOLACTONE 25 MG TABLET PO SCH (09:26)
[2020-12-29] MEDS: AMINO ACIDS/PROTEIN HYDROLYS 30 ML LIQUID.PKT PO SCH (09:26)
[2020-12-29] MEDS ORDERED: dilTIAZem HCL 50 MG/10 ML - 10 ML VIAL IVPUSH ONE (13:25)
[2020-12-29] MEDS ORDERED: dilTIAZem HCL 50 MG/10 ML - 10 ML VIAL ONE (13:30)
[2020-12-29] MEDS: DEXMEDETOMIDINE IN 0.9 % NACL 400 MCG/100 ML VIAL IVPB SCH ×2 (15:45→17:58)
[2020-12-29] MEDS: CHLORHEXIDINE GLUCONATE 4% CLEANSER FOR DECOLONIZATION TP SCH (22:14)
[2020-12-30] MEDS: INSULIN SLIDING SCALE (NOVOLOG) 1 VIAL SQ SCH ×4 (00:37→17:21)
[2020-12-30] MEDS: FENTANYL NS IVPB 500 MCG/100 ML BAG IVPB SCH (00:45)
[2020-12-30] MEDS: HEPARIN NA (PORCINE) 5,000 UNITS/ML 1ML VIAL SQ SCH ×3 (06:20→22:36)
[2020-12-30] MEDS: SODIUM BICARBONATE 8.4% 50 MEQ/50 ML DISP.SYRIN IVPUSH SCH ×2 (06:31→09:31)
[2020-12-30 06:38] LABS: BASO % 0.3 % (0-2.0); EOS % 5.7 % (0-4.5); HEMATOCRIT 23.8 % (35.4-49); HEMOGLOBIN 7.8 GM/dL (11.7-16.9); LYMPH % 14.3 % (8-40); MCH 34.1 pg (25.7-33.7); MCHC 32.7 g/dl (32.0-35.9); MEAN CELL VOLUME 104.3 fl (80-96); MEAN PLT VOLUME 13.6 fl (7.5-11.1); MONO % 5.2 % (3.8-10.2); NEUT % 74.5 % (42.8-82.8); PLATELET COUNT 102 10^3/uL (134-434); RBC 2.28 M/mm3 (4.00-5.60); RDW 16.6 % (11.9-15.9); WHITE BLOOD COUNT 10.2 K/mm3 (4.0-10.0)
[2020-12-30 07:04] LABS: CALCIUM 8.4 mg/dL (8.5-10.1)
[2020-12-30 07:05] LABS: ALBUMIN 2.2 g/dl (3.4-5.0); BLOOD UREA NITROGEN 26.4 mg/dL (7-18)
[2020-12-30 07:06] LABS: MAGNESIUM 2.2 mg/dL (1.8-2.4)
[2020-12-30 07:08] LABS: CREATININE 0.7 mg/dL (0.55-1.3); PHOSPHOROUS 3.4 mg/dL (2.5-4.9)
[2020-12-30 07:09] LABS: BILIRUBIN,TOTAL 1.4 mg/dL (0.2-1); TOT PROT 5.5 g/dl (6.4-8.2)
[2020-12-30] MEDS ORDERED: POTASSIUM CHLORIDE ORAL LIQUID 20 MEQ/15 ML PO ONE ×2 (08:07→21:03)
[2020-12-30] MEDS: DEXMEDETOMIDINE IN 0.9 % NACL 400 MCG/100 ML VIAL IVPB SCH ×3 (08:30→22:36)
[2020-12-30] MEDS: MIDAZOLAM IN 0.9 % SOD.CHLORID 100 MG/100 ML PLAST..BAG IVPB SCH ×2 (08:30→22:36)
[2020-12-30] MEDS: AMINO ACIDS/PROTEIN HYDROLYS 30 ML LIQUID.PKT PO SCH (08:40)
[2020-12-30] MEDS: VASOPRESSIN 40 UNITS in SODIUM CHLORIDE 98 ML IVPB SCH ×3 (08:45→22:36)
[2020-12-30] MEDS ORDERED: PT OWN MED DRAWER 7, Y5N ONE ×3 (09:19→22:40)
[2020-12-30] MEDS: CALCITRIOL 1 MCG/ML BOT GT SCH ×2 (09:23→23:17)
[2020-12-30] MEDS: ERTAPENEM SODIUM 1 GM in SODIUM CHLORIDE 50 ML IVPB SCH (09:23)
[2020-12-30] MEDS: PANTOPRAZOLE SODIUM 40 MG VIAL IVPUSH SCH (09:23)
[2020-12-30] MEDS: SPIRONOLACTONE 25 MG TABLET PO SCH (09:24)
[2020-12-30] MEDS: THIAMINE HCL 200 MG/2 ML VIAL IVPB SCH (09:24)
[2020-12-30 11:32] LABS: ARTERIAL BLOOD GAS BASE EXCESS 13.4 mmol/L (-2-2); ARTERIAL BLOOD GAS PO2 98.6 mmHg (80-100); ARTERIAL BLOOD GAS pH 7.534 (7.350-7.450)
[2020-12-30 11:36] LABS: ALLENS TEST POSITIVE
[2020-12-30 11:37] LABS: VENT MODE A/C; VENT RATE 14
[2020-12-30] MEDS: NOREPINEPHRINE BITARTRATE 8,000 MCG/500 ML BAG IVPB SCH ×2 (15:07→22:37)
[2020-12-30] MEDS: ACETAMINOPHEN 1000 MG/100 ML VIAL (NON FORMULARY) IVPB PRN (15:10)
[2020-12-30] MEDS: FUROSEMIDE INJECTION 100 MG in DEXTROSE 5%-WATER - 90 ML IVPB SCH ×2 (16:11→22:37)
[2020-12-30] MEDS ORDERED: dilTIAZem HCL 50 MG/10 ML - 10 ML VIAL IVPUSH ONE (18:27)
[2020-12-30] MEDS ORDERED: AMIODARONE HCL 150 MG/3 ML VIAL IVPUSH ONE (19:22)
[2020-12-30] MEDS ORDERED: AMIODARONE IN DEXTROSE,ISO-OSM 150 MG/100 ML BAG IVPB ONE (19:30)
[2020-12-30] MEDS ORDERED: NOREPINEPHRINE NS PREMIX 16,000 MCG/500 ML BAG IVPB ONE (19:32)
[2020-12-30] MEDS ORDERED: AMIODARONE HCL INJECTION 450 MG in DEXTROSE 5%-WATER - 241 ML IVPB ONE (20:33)
[2020-12-30] MEDS ORDERED: AMIODARONE IN DEXTROSE,ISO-OSM 360 MG/200 ML BAG ONE (20:34)
[2020-12-30] MEDS ORDERED: AMIODARONE IN DEXTROSE,ISO-OSM 360 MG/200 ML BAG IVPB ONE (20:45)
[2020-12-30] MEDS ORDERED: METOPROLOL TARTRATE 5 MG/5 ML VIAL IVPUSH ONE (21:03)
[2020-12-30] MEDS: METOPROLOL TARTRATE 5 MG/5 ML VIAL IVPUSH PRN (21:17)
[2020-12-30] MEDS ORDERED: MAGNESIUM SULF 50% (8.12 MEQ/2 ML-1 GM VIAL) IVPB ONE (21:19)
[2020-12-30 21:25] LABS: CALCIUM 8.3 mg/dL (8.5-10.1)
[2020-12-30 21:26] LABS: BLOOD UREA NITROGEN 20.4 mg/dL (7-18)
[2020-12-30 21:29] LABS: CREATININE 0.6 mg/dL (0.55-1.3)
[2020-12-30] MEDS: CHLORHEXIDINE GLUCONATE 4% CLEANSER FOR DECOLONIZATION TP SCH (22:37)
[2020-12-30] MEDS: METOPROLOL TARTRATE 25 MG TABLET (FP) PO SCH (23:17)
[2020-12-30] MEDS: POTASSIUM CHLORIDE 20 MEQ PREMIX IVPB 100 ML IVPB SCH (23:17)
[2020-12-31 01:02] LABS: ARTERIAL BLD GAS O2 SATURATION 98.9 mmHg (95-98); ARTERIAL BLOOD GAS BASE EXCESS 9.2 mmol/L (-2-2); ARTERIAL BLOOD GAS PO2 134.3 mmHg (80-100); ARTERIAL BLOOD GAS pH 7.516 (7.350-7.450)
[2020-12-31] MEDS: FENTANYL NS IVPB 500 MCG/100 ML BAG IVPB SCH (01:06)
[2020-12-31] MEDS: POTASSIUM CHLORIDE 20 MEQ PREMIX IVPB 100 ML IVPB SCH ×2 (01:06→02:36)
[2020-12-31] MEDS: NOREPINEPHRINE BITARTRATE 16,000 MCG in SODIUM CHLORIDE 484 ML IV SCH (01:06)
[2020-12-31] MEDS: INSULIN SLIDING SCALE (NOVOLOG) 1 VIAL SQ SCH ×4 (01:06→18:06)
[2020-12-31 01:07] LABS: VENT MODE A/C; VENT RATE 14
[2020-12-31] MEDS: METOPROLOL TARTRATE 25 MG TABLET (FP) PO SCH ×3 (02:38→10:44)
[2020-12-31] MEDS ORDERED: AMIODARONE IN DEXTROSE,ISO-OSM 360 MG/200 ML BAG IVPB SCH (02:45)
[2020-12-31 06:24] LABS: ARTERIAL BLD GAS O2 SATURATION 98.9 mmHg (95-98); ARTERIAL BLOOD GAS BASE EXCESS 3.8 mmol/L (-2-2); ARTERIAL BLOOD GAS PO2 136.3 mmHg (80-100); ARTERIAL BLOOD GAS pH 7.486 (7.350-7.450)
[2020-12-31 06:36] LABS: VENT MODE A/C; VENT RATE 14
[2020-12-31 06:50] LABS: BASO % 0.4 % (0-2.0); EOS % 4.4 % (0-4.5); HEMATOCRIT 22.5 % (35.4-49); HEMOGLOBIN 7.5 GM/dL (11.7-16.9); LYMPH % 10.8 % (8-40); MCH 34.8 pg (25.7-33.7); MCHC 33.3 g/dl (32.0-35.9); MEAN CELL VOLUME 104.3 fl (80-96); MEAN PLT VOLUME 13.1 fl (7.5-11.1); MONO % 4.8 % (3.8-10.2); NEUT % 79.6 % (42.8-82.8); PLATELET COUNT 93 10^3/uL (134-434); RBC 2.16 M/mm3 (4.00-5.60); RDW 16.9 % (11.9-15.9); WHITE BLOOD COUNT 10.3 K/mm3 (4.0-10.0)
[2020-12-31] MEDS: HEPARIN NA (PORCINE) 5,000 UNITS/ML 1ML VIAL SQ SCH (07:06)
[2020-12-31 07:10] LABS: CALCIUM 8.2 mg/dL (8.5-10.1)
[2020-12-31 07:11] LABS: ALBUMIN 2.1 g/dl (3.4-5.0); MAGNESIUM 2.1 mg/dL (1.8-2.4)
[2020-12-31 07:13] LABS: CREATININE 0.5 mg/dL (0.55-1.3)
[2020-12-31 07:14] LABS: PHOSPHOROUS 1.9 mg/dL (2.5-4.9)
[2020-12-31 07:15] LABS: BILIRUBIN,TOTAL 1.4 mg/dL (0.2-1)
[2020-12-31 07:16] LABS: TOT PROT 5.5 g/dl (6.4-8.2)
[2020-12-31] MEDS: AMINO ACIDS/PROTEIN HYDROLYS 30 ML LIQUID.PKT PO SCH (08:48)
[2020-12-31] MEDS: MIDAZOLAM IN 0.9 % SOD.CHLORID 100 MG/100 ML PLAST..BAG IVPB SCH ×2 (08:49→09:30)
[2020-12-31] MEDS ORDERED: PT OWN MED DRAWER 7, Y5N ONE ×2 (09:35→13:08)
[2020-12-31] MEDS: ERTAPENEM SODIUM 1 GM in SODIUM CHLORIDE 50 ML IVPB SCH (10:01)
[2020-12-31] MEDS: PANTOPRAZOLE SODIUM 40 MG VIAL IVPUSH SCH (10:04)
[2020-12-31] MEDS: NAPH,MB-DB/K PH,MBDB POWDER PACKET PO SCH ×2 (10:04→23:30)
[2020-12-31] MEDS: CALCITRIOL 1 MCG/ML BOT GT SCH ×2 (10:06→23:35)
[2020-12-31] MEDS: THIAMINE HCL 200 MG/2 ML VIAL IVPB SCH (10:06)
[2020-12-31] MEDS: SPIRONOLACTONE 25 MG TABLET PO SCH (10:07)
[2020-12-31] MEDS: DEXMEDETOMIDINE IN 0.9 % NACL 400 MCG/100 ML VIAL IVPB SCH ×2 (10:07→17:00)
[2020-12-31] MEDS: VANCOMYCIN/WATER BAGS 1,250 MG/250 ML BAG IVPB SCH (13:09)
[2020-12-31] MEDS: VASOPRESSIN 40 UNITS in SODIUM CHLORIDE 98 ML IVPB SCH (16:00)
[2020-12-31] MEDS: CHLORHEXIDINE GLUCONATE 4% CLEANSER FOR DECOLONIZATION TP SCH (23:00)
[2021-01-01] MEDS: FENTANYL NS IVPB 500 MCG/100 ML BAG IVPB SCH (03:20)
[2021-01-01] MEDS: METOPROLOL TARTRATE 50 MG TABLET (FP) PO SCH ×3 (03:20→21:39)
[2021-01-01] MEDS: NOREPINEPHRINE BITARTRATE 16,000 MCG in SODIUM CHLORIDE 484 ML IV SCH (03:21)
[2021-01-01] MEDS: INSULIN SLIDING SCALE (NOVOLOG) 1 VIAL SQ SCH ×4 (03:48→17:45)
[2021-01-01 06:20] LABS: BASO % 0.4 % (0-2.0); EOS % 4.1 % (0-4.5); HEMATOCRIT 21.7 % (35.4-49); HEMOGLOBIN 7.1 GM/dL (11.7-16.9); LYMPH % 9.7 % (8-40); MCH 34.7 pg (25.7-33.7); MCHC 32.8 g/dl (32.0-35.9); MEAN CELL VOLUME 105.8 fl (80-96); MEAN PLT VOLUME 13.4 fl (7.5-11.1); NEUT % 80.8 % (42.8-82.8); PLATELET COUNT 91 10^3/uL (134-434); RBC 2.05 M/mm3 (4.00-5.60); RDW 16.9 % (11.9-15.9); WHITE BLOOD COUNT 8.8 K/mm3 (4.0-10.0)
[2021-01-01 06:27] LABS: INR 1.18 (0.83-1.09); PROTHROMBIN TIME (PATIENT) 14.2 SEC (9.7-13.0)
[2021-01-01 06:46] LABS: BLOOD UREA NITROGEN 11.2 mg/dL (7-18); CALCIUM 7.8 mg/dL (8.5-10.1); MAGNESIUM 1.9 mg/dL (1.8-2.4)
[2021-01-01 06:49] LABS: CREATININE 0.2 mg/dL (0.55-1.3)
[2021-01-01 06:51] LABS: BILIRUBIN,TOTAL 1.6 mg/dL (0.2-1); TOT PROT 5.4 g/dl (6.4-8.2)
[2021-01-01] MEDS ORDERED: MAGNESIUM SULF 50% (8.12 MEQ/2 ML-1 GM VIAL) IVPB ONE (08:00)
[2021-01-01] MEDS: AMINO ACIDS/PROTEIN HYDROLYS 30 ML LIQUID.PKT PO SCH (08:09)
[2021-01-01] MEDS ORDERED: POTASSIUM PHOSPHATE 30 MM in SODIUM CHLORIDE 500 ML IVPB ONE (09:00)
[2021-01-01 09:14] LABS: ANISOCYTOSIS 1+; MACROCYTOSIS 1+; PLATELET ESTIMATE DECREASED
[2021-01-01] MEDS: PANTOPRAZOLE SODIUM 40 MG VIAL IVPUSH SCH (09:25)
[2021-01-01] MEDS: NAPH,MB-DB/K PH,MBDB POWDER PACKET PO SCH ×2 (09:25→21:39)
[2021-01-01] MEDS: FUROSEMIDE 40 MG/4 ML INJECTABLE VIAL IVPUSH SCH (09:26)
[2021-01-01] MEDS: ERTAPENEM SODIUM 1 GM in SODIUM CHLORIDE 50 ML IVPB SCH (09:26)
[2021-01-01] MEDS: SPIRONOLACTONE 25 MG TABLET PO SCH (09:29)
[2021-01-01] MEDS: THIAMINE HCL 200 MG/2 ML VIAL IVPB SCH (09:30)
[2021-01-01] MEDS ORDERED: PT OWN MED DRAWER 7, Y5N ONE ×3 (09:45→21:38)
[2021-01-01] MEDS: VASOPRESSIN 40 UNITS in SODIUM CHLORIDE 98 ML IVPB SCH (09:57)
[2021-01-01] MEDS: CALCITRIOL 1 MCG/ML BOT GT SCH ×2 (09:57→21:39)
[2021-01-01] MEDS: MIDAZOLAM IN 0.9 % SOD.CHLORID 100 MG/100 ML PLAST..BAG IVPB SCH (10:44)
[2021-01-01] MEDS: VANCOMYCIN/WATER BAGS 1,250 MG/250 ML BAG IVPB SCH (11:27)
[2021-01-01] MEDS: FLUCONAZOLE 100 MG/NS 50 ML IVPB SCH (14:55)
[2021-01-01] MEDS: DEXMEDETOMIDINE IN 0.9 % NACL 400 MCG/100 ML VIAL IVPB SCH ×2 (17:00→22:00)
[2021-01-01] MEDS: ACETAMINOPHEN 1000 MG/100 ML VIAL (NON FORMULARY) IVPB PRN (17:46)
[2021-01-01] MEDS: CHLORHEXIDINE GLUCONATE 4% CLEANSER FOR DECOLONIZATION TP SCH (21:35)
[2021-01-02] MEDS: INSULIN SLIDING SCALE (NOVOLOG) 1 VIAL SQ SCH ×4 (01:46→21:39)
[2021-01-02] MEDS: NOREPINEPHRINE BITARTRATE 16,000 MCG in SODIUM CHLORIDE 484 ML IV SCH (01:46)
[2021-01-02 07:05] LABS: BASO % 0.5 % (0-2.0); EOS % 4.4 % (0-4.5); HEMATOCRIT 20.5 % (35.4-49); LYMPH % 9.2 % (8-40); MCHC 32.7 g/dl (32.0-35.9); MEAN CELL VOLUME 106.8 fl (80-96); MEAN PLT VOLUME 12.3 fl (7.5-11.1); MONO % 3.9 % (3.8-10.2); PLATELET COUNT 97 10^3/uL (134-434); RBC 1.92 M/mm3 (4.00-5.60); RDW 17.7 % (11.9-15.9); WHITE BLOOD COUNT 8.2 K/mm3 (4.0-10.0)
[2021-01-02 07:08] LABS: HEMOGLOBIN 6.7 GM/dL (11.7-16.9)
[2021-01-02 07:32] LABS: ALBUMIN 1.9 g/dl (3.4-5.0); BLOOD UREA NITROGEN 7.8 mg/dL (7-18); CALCIUM 7.9 mg/dL (8.5-10.1)
[2021-01-02 07:36] LABS: CREATININE 0.2 mg/dL (0.55-1.3)
[2021-01-02 07:37] LABS: BILIRUBIN,TOTAL 1.2 mg/dL (0.2-1); TOT PROT 5.3 g/dl (6.4-8.2)
[2021-01-02] MEDS: DEXMEDETOMIDINE IN 0.9 % NACL 400 MCG/100 ML VIAL IVPB SCH (09:06)
[2021-01-02] MEDS ORDERED: PT OWN MED DRAWER 7, Y5N ONE ×2 (09:51→11:15)
[2021-01-02] MEDS ORDERED: SODIUM PHOSPHATE - 30 MM in SODIUM CHLORIDE 250 ML IV ONE (10:00)
[2021-01-02] MEDS: PANTOPRAZOLE SODIUM 40 MG VIAL IVPUSH SCH (10:22)
[2021-01-02] MEDS: METOPROLOL TARTRATE 50 MG TABLET (FP) PO SCH ×2 (10:22→21:38)
[2021-01-02] MEDS: SPIRONOLACTONE 25 MG TABLET PO SCH (10:22)
[2021-01-02] MEDS: ERTAPENEM SODIUM 1 GM in SODIUM CHLORIDE 50 ML IVPB SCH (10:22)
[2021-01-02] MEDS: NAPH,MB-DB/K PH,MBDB POWDER PACKET PO SCH ×2 (10:22→21:38)
[2021-01-02] MEDS: FLUCONAZOLE 100 MG/NS 50 ML IVPB SCH (10:22)
[2021-01-02] MEDS: FUROSEMIDE 40 MG/4 ML INJECTABLE VIAL IVPUSH SCH (10:22)
[2021-01-02] MEDS: AMINO ACIDS/PROTEIN HYDROLYS 30 ML LIQUID.PKT PO SCH (10:22)
[2021-01-02] MEDS: THIAMINE HCL 200 MG/2 ML VIAL IVPB SCH (11:32)
[2021-01-02] MEDS: CALCITRIOL 1 MCG/ML BOT GT SCH ×2 (11:32→21:38)
[2021-01-02] MEDS: VANCOMYCIN/WATER BAGS 1,250 MG/250 ML BAG IVPB SCH (11:32)
[2021-01-02] MEDS: ACETAMINOPHEN 1000 MG/100 ML VIAL (NON FORMULARY) IVPB PRN (11:32)
[2021-01-02] MEDS: POTASSIUM CHLORIDE 20 MEQ PREMIX IVPB 100 ML IVPB SCH ×3 (11:39→14:30)
[2021-01-02] MEDS: MIDAZOLAM IN 0.9 % SOD.CHLORID 100 MG/100 ML PLAST..BAG IVPB SCH (17:31)
[2021-01-02 20:33] LABS: HEMATOCRIT 24.7 % (35.4-49); HEMOGLOBIN 8.3 GM/dL (11.7-16.9); MCH 34.5 pg (25.7-33.7); MCHC 33.7 g/dl (32.0-35.9); MEAN CELL VOLUME 102.4 fl (80-96); MEAN PLT VOLUME 12.2 fl (7.5-11.1); PLATELET COUNT 95 10^3/uL (134-434); RBC 2.41 M/mm3 (4.00-5.60); RDW 17.3 % (11.9-15.9); WHITE BLOOD COUNT 8.6 K/mm3 (4.0-10.0)
[2021-01-02] MEDS: CHLORHEXIDINE GLUCONATE 4% CLEANSER FOR DECOLONIZATION TP SCH (21:38)
[2021-01-02] MEDS: VASOPRESSIN 40 UNITS in SODIUM CHLORIDE 98 ML IVPB SCH (21:39)
[2021-01-03] MEDS: NOREPINEPHRINE BITARTRATE 16,000 MCG in SODIUM CHLORIDE 484 ML IV SCH ×2 (00:59→23:00)
[2021-01-03] MEDS: INSULIN SLIDING SCALE (NOVOLOG) 1 VIAL SQ SCH ×4 (00:59→17:40)
[2021-01-03 06:40] LABS: BASO % 0.5 % (0-2.0); EOS % 4.6 % (0-4.5); HEMATOCRIT 25.4 % (35.4-49); HEMOGLOBIN 8.4 GM/dL (11.7-16.9); LYMPH % 11.9 % (8-40); MCHC 32.9 g/dl (32.0-35.9); MEAN CELL VOLUME 103.2 fl (80-96); MEAN PLT VOLUME 12.1 fl (7.5-11.1); MONO % 4.7 % (3.8-10.2); NEUT % 78.3 % (42.8-82.8); PLATELET COUNT 105 10^3/uL (134-434); RBC 2.47 M/mm3 (4.00-5.60); RDW 17.7 % (11.9-15.9); WHITE BLOOD COUNT 8.1 K/mm3 (4.0-10.0)
[2021-01-03 07:06] LABS: CALCIUM 7.7 mg/dL (8.5-10.1)
[2021-01-03 07:07] LABS: ALBUMIN 1.9 g/dl (3.4-5.0); BLOOD UREA NITROGEN 7.9 mg/dL (7-18); MAGNESIUM 1.8 mg/dL (1.8-2.4)
[2021-01-03 07:10] LABS: CREATININE 0.2 mg/dL (0.55-1.3); PHOSPHOROUS 2.3 mg/dL (2.5-4.9)
[2021-01-03 07:12] LABS: BILIRUBIN,TOTAL 1.2 mg/dL (0.2-1); TOT PROT 5.3 g/dl (6.4-8.2)
[2021-01-03] MEDS ORDERED: MAGNESIUM SULF 50% (8.12 MEQ/2 ML-1 GM VIAL) IVPB ONE ×2 (08:00)
[2021-01-03] MEDS ORDERED: PT OWN MED DRAWER 7, Y5N ONE ×3 (09:23→21:09)
[2021-01-03] MEDS: SPIRONOLACTONE 25 MG TABLET PO SCH (09:30)
[2021-01-03] MEDS: AMINO ACIDS/PROTEIN HYDROLYS 30 ML LIQUID.PKT PO SCH (09:30)
[2021-01-03] MEDS: METOPROLOL TARTRATE 50 MG TABLET (FP) PO SCH ×2 (09:30→21:15)
[2021-01-03] MEDS: PANTOPRAZOLE SODIUM 40 MG VIAL IVPUSH SCH (09:31)
[2021-01-03] MEDS: ERTAPENEM SODIUM 1 GM in SODIUM CHLORIDE 50 ML IVPB SCH (09:41)
[2021-01-03] MEDS: CALCITRIOL 1 MCG/ML BOT GT SCH ×2 (09:44→21:15)
[2021-01-03] MEDS: FUROSEMIDE 40 MG/4 ML INJECTABLE VIAL IVPUSH SCH (09:44)
[2021-01-03] MEDS: THIAMINE HCL 200 MG/2 ML VIAL IVPB SCH (09:45)
[2021-01-03] MEDS: POTASSIUM CHLORIDE 20 MEQ PREMIX IVPB 100 ML IVPB SCH ×2 (09:52→12:30)
[2021-01-03] MEDS: VASOPRESSIN 40 UNITS in SODIUM CHLORIDE 98 ML IVPB SCH ×2 (10:59→11:14)
[2021-01-03] MEDS: VANCOMYCIN/WATER BAGS 1,250 MG/250 ML BAG IVPB SCH (11:13)
[2021-01-03] MEDS: FLUCONAZOLE 100 MG/NS 50 ML IVPB SCH (11:26)
[2021-01-03] MEDS: DEXMEDETOMIDINE IN 0.9 % NACL 400 MCG/100 ML VIAL IVPB SCH ×2 (15:41→22:17)
[2021-01-03] MEDS: CHLORHEXIDINE GLUCONATE 4% CLEANSER FOR DECOLONIZATION TP SCH (21:15)
[2021-01-04] MEDS: INSULIN SLIDING SCALE (NOVOLOG) 1 VIAL SQ SCH ×4 (00:13→18:27)
[2021-01-04 06:44] LABS: BASO % 0.3 % (0-2.0); EOS % 3.2 % (0-4.5); HEMATOCRIT 24.7 % (35.4-49); HEMOGLOBIN 8.1 GM/dL (11.7-16.9); LYMPH % 13.1 % (8-40); MCH 34.1 pg (25.7-33.7); MCHC 32.8 g/dl (32.0-35.9); MEAN CELL VOLUME 104.1 fl (80-96); MEAN PLT VOLUME 12.1 fl (7.5-11.1); MONO % 5.3 % (3.8-10.2); NEUT % 78.1 % (42.8-82.8); PLATELET COUNT 108 10^3/uL (134-434); RBC 2.38 M/mm3 (4.00-5.60); RDW 18.4 % (11.9-15.9); WHITE BLOOD COUNT 6.9 K/mm3 (4.0-10.0)
[2021-01-04] MEDS: METOPROLOL TARTRATE 50 MG TABLET (FP) PO SCH ×2 (06:46→11:16)
[2021-01-04 07:01] LABS: ALBUMIN 1.8 g/dl (3.4-5.0); BLOOD UREA NITROGEN 9.1 mg/dL (7-18); MAGNESIUM 2.1 mg/dL (1.8-2.4)
[2021-01-04 07:04] LABS: CREATININE 0.2 mg/dL (0.55-1.3)
[2021-01-04 07:05] LABS: PHOSPHOROUS 1.8 mg/dL (2.5-4.9)
[2021-01-04 07:06] LABS: TOT PROT 5.2 g/dl (6.4-8.2)
[2021-01-04] MEDS ORDERED: PT OWN MED DRAWER 7, Y5N ONE (09:52)
[2021-01-04] MEDS ORDERED: RAPID SEQUENCE INTUBATION KIT NR ONE (10:16)
[2021-01-04] MEDS: THIAMINE HCL 200 MG/2 ML VIAL IVPB SCH (10:41)
[2021-01-04] MEDS: FLUCONAZOLE 100 MG/NS 50 ML IVPB SCH (10:42)
[2021-01-04] MEDS: PANTOPRAZOLE SODIUM 40 MG VIAL IVPUSH SCH (10:42)
[2021-01-04] MEDS: ERTAPENEM SODIUM 1 GM in SODIUM CHLORIDE 50 ML IVPB SCH (10:43)
[2021-01-04] MEDS: SPIRONOLACTONE 25 MG TABLET PO SCH (10:44)
[2021-01-04] MEDS: AMINO ACIDS/PROTEIN HYDROLYS 30 ML LIQUID.PKT PO SCH (10:44)
[2021-01-04] MEDS: FUROSEMIDE 40 MG/4 ML INJECTABLE VIAL IVPUSH SCH (10:57)
[2021-01-04] MEDS: CALCITRIOL 1 MCG/ML BOT GT SCH ×2 (11:17→21:29)
[2021-01-04] MEDS: VASOPRESSIN 40 UNITS in SODIUM CHLORIDE 98 ML IVPB SCH (12:04)
[2021-01-04] MEDS ORDERED: METOPROLOL TARTRATE 5 MG/5 ML VIAL ONE ×2 (12:56→16:33)
[2021-01-04] MEDS: METOPROLOL TARTRATE 5 MG/5 ML VIAL IVPUSH PRN ×2 (13:12→16:37)
[2021-01-04] MEDS: MIDODRINE HCL 5 MG TABLET PO SCH ×2 (13:19→17:16)
[2021-01-04] MEDS ORDERED: NAPH,MB-DB/K PH,MBDB POWDER PACKET PO ONE (15:49)
[2021-01-04] MEDS ORDERED: METOPROLOL TARTRATE 5 MG/5 ML VIAL IVPUSH ONE (18:14)
[2021-01-04] MEDS ORDERED: METOPROLOL TARTRATE 50 MG TABLET (FP) GT ONE (18:37)
[2021-01-04] MEDS: METOPROLOL TARTRATE 50 MG TABLET (FP) GT SCH (21:29)
[2021-01-04] MEDS: CHLORHEXIDINE GLUCONATE 4% CLEANSER FOR DECOLONIZATION TP SCH (21:29)
[2021-01-05] MEDS: INSULIN SLIDING SCALE (NOVOLOG) 1 VIAL SQ SCH ×4 (00:47→18:18)
[2021-01-05] MEDS: METOPROLOL TARTRATE 5 MG/5 ML VIAL IVPUSH PRN ×3 (03:02→18:29)
[2021-01-05] MEDS ORDERED: dilTIAZem HCL 50 MG/10 ML - 10 ML VIAL IVPUSH ONE ×3 (05:06→22:57)
[2021-01-05 07:50] LABS: HEMATOCRIT 26.5 % (35.4-49); HEMOGLOBIN 8.7 GM/dL (11.7-16.9); MCH 34.5 pg (25.7-33.7); MEAN CELL VOLUME 104.7 fl (80-96); MEAN PLT VOLUME 11.6 fl (7.5-11.1); PLATELET COUNT 131 10^3/uL (134-434); RBC 2.53 M/mm3 (4.00-5.60); RDW 19.8 % (11.9-15.9); WHITE BLOOD COUNT 7.4 K/mm3 (4.0-10.0)
[2021-01-05 07:53] LABS: CALCIUM 8.3 mg/dL (8.5-10.1)
[2021-01-05 07:54] LABS: MAGNESIUM 2.1 mg/dL (1.8-2.4)
[2021-01-05 07:57] LABS: CREATININE 0.2 mg/dL (0.55-1.3)
[2021-01-05] MEDS: SPIRONOLACTONE 25 MG TABLET PO SCH (09:19)
[2021-01-05] MEDS: METOPROLOL TARTRATE 50 MG TABLET (FP) GT SCH ×2 (09:19→21:30)
[2021-01-05] MEDS: MIDODRINE HCL 5 MG TABLET PO SCH ×3 (09:19→18:16)
[2021-01-05] MEDS: THIAMINE HCL 200 MG/2 ML VIAL IVPB SCH (09:19)
[2021-01-05] MEDS: PANTOPRAZOLE SODIUM 40 MG VIAL IVPUSH SCH (09:20)
[2021-01-05] MEDS ORDERED: ERTAPENEM SODIUM 1 GM in SODIUM CHLORIDE 50 ML IVPB SCH (10:00)
[2021-01-05] MEDS: FLUCONAZOLE 100 MG/NS 50 ML IVPB SCH (10:13)
[2021-01-05] MEDS: POTASSIUM CHLORIDE 20 MEQ PREMIX IVPB 100 ML IVPB SCH ×3 (10:53→13:24)
[2021-01-05] MEDS ORDERED: POTASSIUM PHOSPHATE 20 MM in SODIUM CHLORIDE 250 ML IVPB ONE (11:07)
[2021-01-05] MEDS ORDERED: MAGNESIUM SULF 50% (8.12 MEQ/2 ML-1 GM VIAL) IVPB ONE (11:09)
[2021-01-05] MEDS ORDERED: POTASSIUM CHLORIDE 20 MEQ PREMIX IVPB 100 ML IVPB SCH (11:15)
[2021-01-05] MEDS: AMINO ACIDS/PROTEIN HYDROLYS 30 ML LIQUID.PKT PO SCH (11:52)
[2021-01-05] MEDS: CALCITRIOL 1 MCG/ML BOT GT SCH ×2 (17:43→21:30)
[2021-01-05] MEDS ORDERED: LEVALBUTEROL HCL 0.63 MG/3 ML VIAL.NEB. IH PRN (18:43)
[2021-01-05] MEDS ORDERED: METOPROLOL TARTRATE 5 MG/5 ML VIAL IVPUSH ONE ×2 (18:45→21:56)
[2021-01-05] MEDS ORDERED: SODIUM CHLORIDE 250 ML IV STA (18:47)
[2021-01-05] MEDS ORDERED: AMIODARONE HCL 150 MG/3 ML VIAL IVPUSH ONE (19:03)
[2021-01-05] MEDS ORDERED: AMIODARONE HCL 150 MG/3 ML VIAL ONE (19:05)
[2021-01-05] MEDS ORDERED: AMIODARONE IN DEXTROSE,ISO-OSM 150 MG/100 ML BAG ONE (19:06)
[2021-01-05] MEDS ORDERED: AMIODARONE IN DEXTROSE,ISO-OSM 360 MG/200 ML BAG ONE ×2 (19:06→19:12)
[2021-01-05] MEDS ORDERED: FUROSEMIDE 40 MG/4 ML INJECTABLE VIAL ONE (19:29)
[2021-01-05] MEDS ORDERED: FUROSEMIDE 40 MG/4 ML INJECTABLE VIAL IVPUSH ONE (19:33)
[2021-01-05 20:00] LABS: ARTERIAL BLD GAS O2 SATURATION 94.4 mmHg (95-98); ARTERIAL BLOOD GAS BASE EXCESS -1.8 mmol/L (-2-2); ARTERIAL BLOOD GAS PO2 65.1 mmHg (80-100); ARTERIAL BLOOD GAS pH 7.477 (7.350-7.450)
[2021-01-05 20:01] LABS: ALLENS TEST POSITIVE
[2021-01-05] MEDS ORDERED: LORazepam 2 MG/ML SDV VIAL IVPUSH ONE ×2 (20:31→20:42)
[2021-01-05] MEDS ORDERED: LORazepam 2 MG/ML SDV VIAL ONE (20:31)
[2021-01-05] MEDS ORDERED: ACETYLCYSTEINE 20% 200MG/ML 4 ML VIAL *FOR ORAL / INH USE ONLY NEB ONE (20:42)
[2021-01-05] MEDS ORDERED: ALBUTEROL SO4 2.5/IPRATROPIUM 0.5 INH SOL 3 ML VIAL.NEB. NEB ONE (20:46)
[2021-01-05] MEDS ORDERED: DIGOXIN 0.5 MG/2 ML AMPUL IVPUSH ONE (20:47)
[2021-01-05] MEDS ORDERED: DEXMEDETOMIDINE IN 0.9 % NACL 200 MCG/50 ML EACH IVPB SCH (21:00)
[2021-01-05] MEDS ORDERED: ADENOSINE 6 MG/2 ML VIAL IVPUSH ONE ×2 (21:29→21:34)
[2021-01-05] MEDS: CHLORHEXIDINE GLUCONATE 4% CLEANSER FOR DECOLONIZATION TP SCH (21:30)
[2021-01-05] MEDS ORDERED: RAPID SEQUENCE INTUBATION KIT NR ONE (21:46)
[2021-01-05] MEDS ORDERED: METOPROLOL TARTRATE 5 MG/5 ML VIAL IVPUSH PRN (21:57)
[2021-01-05] MEDS ORDERED: ESMOLOL HCL 100,000 MCG/10 ML VIAL ONE (22:22)
[2021-01-05] MEDS: VASOPRESSIN 40 UNITS in SODIUM CHLORIDE 98 ML IVPB SCH ×2 (22:30→23:45)
[2021-01-05] MEDS ORDERED: VASOPRESSIN 20 UNITS/ML VIAL IV ONE (22:31)
[2021-01-06] MEDS ORDERED: DEXTROSE 50%-WATER 25 GM/50 ML DISP.SYRIN ONE ×4 (01:23→08:48)
[2021-01-06] MEDS: INSULIN SLIDING SCALE (NOVOLOG) 1 VIAL SQ SCH ×3 (01:35→17:45)
[2021-01-06] MEDS ORDERED: DEXTROSE 50%-WATER - 25 GM/50 ML VIAL IVPUSH ONE ×4 (04:10→08:38)
[2021-01-06] MEDS ORDERED: SODIUM CHLORIDE 500 ML IV STA (04:11)
[2021-01-06 06:59] LABS: BASO % 0.3 % (0-2.0); EOS % 0.5 % (0-4.5); HEMATOCRIT 23.5 % (35.4-49); HEMOGLOBIN 7.7 GM/dL (11.7-16.9); LYMPH % 14.5 % (8-40); MCH 34.1 pg (25.7-33.7); MCHC 32.6 g/dl (32.0-35.9); MEAN CELL VOLUME 104.5 fl (80-96); MEAN PLT VOLUME 11.6 fl (7.5-11.1); MONO % 5.1 % (3.8-10.2); NEUT % 79.6 % (42.8-82.8); PLATELET COUNT 136 10^3/uL (134-434); RBC 2.25 M/mm3 (4.00-5.60); RDW 18.7 % (11.9-15.9); WHITE BLOOD COUNT 6.9 K/mm3 (4.0-10.0)
[2021-01-06 07:24] LABS: BLOOD UREA NITROGEN 6.2 mg/dL (7-18); CALCIUM 7.5 mg/dL (8.5-10.1)
[2021-01-06 07:25] LABS: ALBUMIN 1.8 g/dl (3.4-5.0)
[2021-01-06 07:27] LABS: MAGNESIUM 1.9 mg/dL (1.8-2.4)
[2021-01-06 07:28] LABS: CREATININE 0.3 mg/dL (0.55-1.3); PHOSPHOROUS 1.9 mg/dL (2.5-4.9)
[2021-01-06 07:29] LABS: BILIRUBIN,TOTAL 0.6 mg/dL (0.2-1); TOT PROT 4.9 g/dl (6.4-8.2)
[2021-01-06] MEDS ORDERED: LORazepam 2 MG/ML SDV VIAL IVPUSH ONE ×3 (08:01→09:48)
[2021-01-06 08:31] LABS: ARTERIAL BLD GAS O2 SATURATION 98.4 mmHg (95-98); ARTERIAL BLOOD GAS BASE EXCESS 3.6 mmol/L (-2-2); ARTERIAL BLOOD GAS PO2 106.7 mmHg (80-100); ARTERIAL BLOOD GAS pH 7.533 (7.350-7.450)
[2021-01-06] MEDS ORDERED: NOREPINEPHRINE BITARTRATE 4 MG/4 ML ML IV ONE (08:34)
[2021-01-06] MEDS ORDERED: MAGNESIUM SULF 50% (8.12 MEQ/2 ML-1 GM VIAL) IVPB ONE (08:38)
[2021-01-06 08:49] LABS: ALLENS TEST POSITIVE
[2021-01-06 08:51] LABS: VENT MODE A/C
[2021-01-06 08:52] LABS: VENT RATE 14
[2021-01-06] MEDS ORDERED: MAGNESIUM 2GM/50ML STERILE WATER IVPB IVPB ONE (09:00)
[2021-01-06] MEDS ORDERED: POTASSIUM CHLORIDE TABS 20 MEQ TABLET.ER (FP) PO ONE (09:00)
[2021-01-06] MEDS: MIDAZOLAM IN 0.9 % SOD.CHLORID 100 MG/100 ML PLAST..BAG IVPB SCH (09:03)
[2021-01-06] MEDS ORDERED: POTASSIUM PHOSPHATE 30 MM in SODIUM CHLORIDE 250 ML IVPB ONE (09:15)
[2021-01-06] MEDS: MIDODRINE HCL 5 MG TABLET PO SCH ×3 (10:37→18:22)
[2021-01-06] MEDS: PANTOPRAZOLE SODIUM 40 MG VIAL IVPUSH SCH (10:37)
[2021-01-06] MEDS: THIAMINE HCL 200 MG/2 ML VIAL IVPB SCH (10:37)
[2021-01-06] MEDS: AMINO ACIDS/PROTEIN HYDROLYS 30 ML LIQUID.PKT PO SCH (10:43)
[2021-01-06] MEDS ORDERED: VANCOMYCIN 1 GRAM (PRE-DOCKED) 1,000 MG/250 ML BAG IVPB ONE (11:30)
[2021-01-06] MEDS ORDERED: POTASSIUM CHLORIDE ORAL LIQUID 20 MEQ/15 ML PO ONE (12:15)
[2021-01-06] MEDS: METOPROLOL TARTRATE 50 MG TABLET (FP) GT SCH ×2 (12:18→21:06)
[2021-01-06] MEDS ORDERED: MEROPENEM 1 GM VIAL (RESTRICTED TO ID) IVPB ONE ×2 (12:20→17:50)
[2021-01-06] MEDS ORDERED: DEXTROSE 5%-WATER 100 ML IVPB ONE ×2 (12:20→17:50)
[2021-01-06] MEDS: MEROPENEM 1 GM in DEXTROSE 5%-WATER 100 ML IVPB SCH ×2 (12:27→17:58)
[2021-01-06] MEDS ORDERED: fentaNYL CITRATE 250 MCG/5 ML VIAL ONE ×2 (12:39)
[2021-01-06] MEDS: FENTANYL NS IVPB 500 MCG/100 ML BAG IVPB SCH (12:47)
[2021-01-06] MEDS: CALCITRIOL 1 MCG/ML BOT GT SCH (12:48)
[2021-01-06] MEDS ORDERED: AMIODARONE IN DEXTROSE,ISO-OSM 360 MG/200 ML BAG ONE (12:57)
[2021-01-06] MEDS ORDERED: AMIODARONE HCL IVPB ONE (13:02)
[2021-01-06] MEDS ORDERED: WATER IVPB ONE (13:02)
[2021-01-06] MEDS ORDERED: DEXTROSE 5% IVPB ONE (13:02)
[2021-01-06] MEDS ORDERED: AMIODARONE IN DEXTROSE,ISO-OSM 360 MG/200 ML BAG IVPB ONE (13:03)
[2021-01-06] MEDS ORDERED: VASOPRESSIN 20 UNITS/ML VIAL IV ONE (13:04)
[2021-01-06] MEDS: NAPH,MB-DB/K PH,MBDB POWDER PACKET PO SCH ×2 (13:09→21:08)
[2021-01-06] MEDS: FLUCONAZOLE 100 MG/NS 50 ML IVPB SCH (13:10)
[2021-01-06] MEDS: NOREPINEPHRINE D5W PREMIX 16,000 MCG/500 ML BAG IVPB SCH (13:18)
[2021-01-06] MEDS: VECURONIUM BROMIDE 100 MG/100 ML BAG IVPB SCH (15:26)
[2021-01-06 20:42] LABS: ARTERIAL BLD GAS O2 SATURATION 97.2 mmHg (95-98); ARTERIAL BLOOD GAS BASE EXCESS -0.5 mmol/L (-2-2); ARTERIAL BLOOD GAS PO2 109.8 mmHg (80-100); ARTERIAL BLOOD GAS pH 7.263 (7.350-7.450)
[2021-01-06 20:43] LABS: ALLENS TEST POSITIVE
[2021-01-06 20:44] LABS: VENT MODE A/C; VENT RATE 12
[2021-01-06 20:54] LABS: CALCIUM 7.6 mg/dL (8.5-10.1)
[2021-01-06 20:55] LABS: BLOOD UREA NITROGEN 7.8 mg/dL (7-18)
[2021-01-06 20:58] LABS: CREATININE 0.3 mg/dL (0.55-1.3)
[2021-01-06] MEDS: CHLORHEXIDINE GLUCONATE 4% CLEANSER FOR DECOLONIZATION TP SCH (21:05)
[2021-01-06] MEDS: KCL 10 MEQ IVPB 10 MEQ/100 ML INFUS.BAG IVPB SCH ×3 (21:17→23:15)
[2021-01-06 23:45] LABS: MAGNESIUM 2.4 mg/dL (1.8-2.4)
[2021-01-06 23:49] LABS: PHOSPHOROUS 4.6 mg/dL (2.5-4.9)
[2021-01-07] MEDS: VASOPRESSIN 40 UNITS in SODIUM CHLORIDE 98 ML IVPB SCH ×2 (00:05→22:31)
[2021-01-07] MEDS: INSULIN SLIDING SCALE (NOVOLOG) 1 VIAL SQ SCH ×4 (00:06→19:00)
[2021-01-07] MEDS: POTASSIUM CHLORIDE 20 MEQ PREMIX IVPB 100 ML IVPB SCH ×2 (00:06→01:05)
[2021-01-07] MEDS ORDERED: MEROPENEM 1 GM VIAL (RESTRICTED TO ID) IVPB ONE ×3 (00:08→17:39)
[2021-01-07] MEDS ORDERED: DEXTROSE 5%-WATER 100 ML IVPB ONE ×3 (00:08→17:39)
[2021-01-07] MEDS: MEROPENEM 1 GM in DEXTROSE 5%-WATER 100 ML IVPB SCH ×3 (01:05→18:26)
[2021-01-07] MEDS ORDERED: AMIODARONE IN DEXTROSE,ISO-OSM 360 MG/200 ML BAG ONE (03:18)
[2021-01-07 05:59] LABS: ARTERIAL BLD GAS O2 SATURATION 97.9 mmHg (95-98); ARTERIAL BLOOD GAS BASE EXCESS 0 mmol/L (-2-2); ARTERIAL BLOOD GAS pH 7.335 (7.350-7.450)
[2021-01-07 06:01] LABS: ALLENS TEST POSITIVE; VENT MODE A/C; VENT RATE 12
[2021-01-07] MEDS: NAPH,MB-DB/K PH,MBDB POWDER PACKET PO SCH ×3 (06:03→22:31)
[2021-01-07] MEDS: AMINO ACIDS/PROTEIN HYDROLYS 30 ML LIQUID.PKT PO SCH (07:10)
[2021-01-07 07:39] LABS: BASO % 0.6 % (0-2.0); EOS % 6.2 % (0-4.5); HEMATOCRIT 24.6 % (35.4-49); HEMOGLOBIN 8.2 GM/dL (11.7-16.9); LYMPH % 12.3 % (8-40); MCH 35.1 pg (25.7-33.7); MCHC 33.2 g/dl (32.0-35.9); MEAN CELL VOLUME 105.9 fl (80-96); MONO % 5.7 % (3.8-10.2); NEUT % 75.2 % (42.8-82.8); PLATELET COUNT 167 10^3/uL (134-434); RBC 2.33 M/mm3 (4.00-5.60); RDW 18.6 % (11.9-15.9); WHITE BLOOD COUNT 8.9 K/mm3 (4.0-10.0)
[2021-01-07 07:55] LABS: INR 1.06 (0.83-1.09); PROTHROMBIN TIME (PATIENT) 12.8 SEC (9.7-13.0)
[2021-01-07 07:58] LABS: ACTIVATED PTT 28.3 SECONDS (25.2-36.5)
[2021-01-07 08:01] LABS: ALBUMIN 1.8 g/dl (3.4-5.0); BLOOD UREA NITROGEN 8.7 mg/dL (7-18); CALCIUM 7.1 mg/dL (8.5-10.1); MAGNESIUM 2.2 mg/dL (1.8-2.4)
[2021-01-07 08:04] LABS: CREATININE 0.3 mg/dL (0.55-1.3); PHOSPHOROUS 3.4 mg/dL (2.5-4.9)
[2021-01-07 08:06] LABS: BILIRUBIN,TOTAL 0.9 mg/dL (0.2-1); TOT PROT 5.3 g/dl (6.4-8.2)
[2021-01-07] MEDS: NOREPINEPHRINE D5W PREMIX 16,000 MCG/500 ML BAG IVPB SCH (09:02)
[2021-01-07] MEDS: MIDAZOLAM IN 0.9 % SOD.CHLORID 100 MG/100 ML PLAST..BAG IVPB SCH (09:02)
[2021-01-07] MEDS: PANTOPRAZOLE SODIUM 40 MG VIAL IVPUSH SCH (09:29)
[2021-01-07] MEDS: MIDODRINE HCL 5 MG TABLET PO SCH ×4 (09:29→18:27)
[2021-01-07] MEDS: THIAMINE HCL 200 MG/2 ML VIAL IVPB SCH (09:30)
[2021-01-07] MEDS: FENTANYL NS IVPB 500 MCG/100 ML BAG IVPB SCH ×2 (09:30→10:46)
[2021-01-07] MEDS: METOPROLOL TARTRATE 50 MG TABLET (FP) GT SCH ×2 (09:31→21:37)
[2021-01-07] MEDS: CALCITRIOL 1 MCG/ML BOT GT SCH (09:32)
[2021-01-07] MEDS ORDERED: LIDOCAINE HCL 1%, 10 MG/ML (20ML VIAL) ONE (09:53)
[2021-01-07] MEDS ORDERED: LIDOCAINE HCL 1% EPINEPHRINE 1:200,000 30 ML VIAL (PF) ONE (09:54)
[2021-01-07 09:58] LABS: ANISOCYTOSIS 1+; MACROCYTOSIS 1+; OVALOCYTE 1+; PLATELET ESTIMATE NORMAL
[2021-01-07] MEDS ORDERED: PT OWN MED DRAWER 7, Y5N ONE (10:03)
[2021-01-07] MEDS: FLUCONAZOLE 100 MG/NS 50 ML IVPB SCH (10:09)
[2021-01-07] MEDS ORDERED: AMIODARONE HCL INJECTION 450 MG in DEXTROSE 5%-WATER - 241 ML IVPB ONE (11:29)
[2021-01-07] MEDS ORDERED: AMIODARONE HCL IVPB SCH (11:45)
[2021-01-07] MEDS ORDERED: DEXTROSE 5% IVPB SCH (11:45)
[2021-01-07] MEDS: AMIODARONE IN DEXTROSE,ISO-OSM 360 MG/200 ML BAG IVPB SCH (11:45)
[2021-01-07] MEDS ORDERED: WATER IVPB SCH (11:45)
[2021-01-07] MEDS: VECURONIUM BROMIDE 100 MG/100 ML BAG IVPB SCH (14:20)
[2021-01-07] MEDS ORDERED: LORazepam 2 MG/ML SDV VIAL IVPUSH ONE (17:03)
[2021-01-07 19:52] LABS: BASO % 0.7 % (0-2.0); HEMATOCRIT 25.1 % (35.4-49); HEMOGLOBIN 8.2 GM/dL (11.7-16.9); LYMPH % 13.8 % (8-40); MCH 34.2 pg (25.7-33.7); MCHC 32.8 g/dl (32.0-35.9); MEAN CELL VOLUME 104.5 fl (80-96); MEAN PLT VOLUME 10.8 fl (7.5-11.1); MONO % 5.4 % (3.8-10.2); NEUT % 77.1 % (42.8-82.8); PLATELET COUNT 162 10^3/uL (134-434); RDW 18.5 % (11.9-15.9); WHITE BLOOD COUNT 7.8 K/mm3 (4.0-10.0)
[2021-01-07 20:16] LABS: BLOOD UREA NITROGEN 7.7 mg/dL (7-18); MAGNESIUM 2.4 mg/dL (1.8-2.4)
[2021-01-07 20:19] LABS: CREATININE 0.3 mg/dL (0.55-1.3); PHOSPHOROUS 2.3 mg/dL (2.5-4.9)
[2021-01-07 21:44] LABS: ARTERIAL BLOOD GAS BASE EXCESS 3.4 mmol/L (-2-2); ARTERIAL BLOOD GAS PO2 153.2 mmHg (80-100); ARTERIAL BLOOD GAS pH 7.426 (7.350-7.450)
[2021-01-07 21:47] LABS: ALLENS TEST POSITIVE; VENT MODE A/C; VENT RATE 14
[2021-01-07] MEDS: CHLORHEXIDINE GLUCONATE 4% CLEANSER FOR DECOLONIZATION TP SCH (22:32)
[2021-01-08] MEDS: DEXMEDETOMIDINE IN 0.9 % NACL 400 MCG/100 ML VIAL IVPB SCH ×2 (01:19→18:40)
[2021-01-08] MEDS ORDERED: DEXTROSE 5%-WATER 100 ML IVPB ONE ×4 (02:49→21:30)
[2021-01-08] MEDS ORDERED: MEROPENEM 1 GM VIAL (RESTRICTED TO ID) IVPB ONE ×2 (02:49→08:53)
[2021-01-08] MEDS: MEROPENEM 1 GM in DEXTROSE 5%-WATER 100 ML IVPB SCH ×2 (02:49→09:13)
[2021-01-08] MEDS: MIDAZOLAM IN 0.9 % SOD.CHLORID 100 MG/100 ML PLAST..BAG IVPB SCH ×3 (04:21→14:55)
[2021-01-08] MEDS: FENTANYL NS IVPB 500 MCG/100 ML BAG IVPB SCH ×2 (04:23→10:55)
[2021-01-08] MEDS: AMIODARONE IN DEXTROSE,ISO-OSM 360 MG/200 ML BAG IVPB SCH ×2 (04:24→14:34)
[2021-01-08 05:45] LABS: ARTERIAL BLD GAS O2 SATURATION 99.5 mmHg (95-98); ARTERIAL BLOOD GAS BASE EXCESS 4.3 mmol/L (-2-2); ARTERIAL BLOOD GAS PO2 214.1 mmHg (80-100); ARTERIAL BLOOD GAS pH 7.485 (7.350-7.450)
[2021-01-08 05:46] LABS: ALLENS TEST POSITIVE; VENT MODE A/C; VENT RATE 14
[2021-01-08] MEDS: INSULIN SLIDING SCALE (NOVOLOG) 1 VIAL SQ SCH ×4 (06:28→18:42)
[2021-01-08] MEDS: NAPH,MB-DB/K PH,MBDB POWDER PACKET PO SCH (06:30)
[2021-01-08 07:01] LABS: ALBUMIN 1.8 g/dl (3.4-5.0); BLOOD UREA NITROGEN 6.4 mg/dL (7-18); CALCIUM 7.7 mg/dL (8.5-10.1); MAGNESIUM 2.1 mg/dL (1.8-2.4)
[2021-01-08 07:04] LABS: CREATININE 0.2 mg/dL (0.55-1.3); PHOSPHOROUS 2.5 mg/dL (2.5-4.9)
[2021-01-08 07:06] LABS: BILIRUBIN,TOTAL 0.8 mg/dL (0.2-1); TOT PROT 5.2 g/dl (6.4-8.2)
[2021-01-08 07:40] LABS: BASO % 2.9 % (0-2.0); EOS % 3.2 % (0-4.5); HEMOGLOBIN 8.2 GM/dL (11.7-16.9); LYMPH % 7.3 % (8-40); MCH 33.5 pg (25.7-33.7); MCHC 31.8 g/dl (32.0-35.9); MEAN CELL VOLUME 105.4 fl (80-96); MEAN PLT VOLUME 11.1 fl (7.5-11.1); MONO % 4.8 % (3.8-10.2); NEUT % 81.8 % (42.8-82.8); PLATELET COUNT 161 10^3/uL (134-434); RBC 2.46 M/mm3 (4.00-5.60); RDW 18.5 % (11.9-15.9); WHITE BLOOD COUNT 8.4 K/mm3 (4.0-10.0)
[2021-01-08] MEDS: AMINO ACIDS/PROTEIN HYDROLYS 30 ML LIQUID.PKT PO SCH (08:42)
[2021-01-08] MEDS: NOREPINEPHRINE D5W PREMIX 16,000 MCG/500 ML BAG IVPB SCH (08:42)
[2021-01-08] MEDS: PANTOPRAZOLE SODIUM 40 MG VIAL IVPUSH SCH (09:13)
[2021-01-08] MEDS: THIAMINE HCL 200 MG/2 ML VIAL IVPB SCH (09:51)
[2021-01-08] MEDS ORDERED: PT OWN MED DRAWER 7, Y5N ONE ×2 (10:11→21:56)
[2021-01-08] MEDS ORDERED: LACTULOSE 20 GM/30 ML UDC (FOR ORAL USE ONLY) PO PRN (10:24)
[2021-01-08 10:50] LABS: ANISOCYTOSIS 1+; MACROCYTOSIS 1+; PLATELET ESTIMATE NORMAL
[2021-01-08] MEDS: FLUCONAZOLE 100 MG/NS 50 ML IVPB SCH (10:54)
[2021-01-08] MEDS: CALCITRIOL 1 MCG/ML BOT GT SCH (10:54)
[2021-01-08] MEDS: METOPROLOL TARTRATE 50 MG TABLET (FP) GT SCH ×2 (10:54→21:54)
[2021-01-08] MEDS: MIDODRINE HCL 5 MG TABLET PO SCH (10:55)
[2021-01-08] MEDS: VECURONIUM BROMIDE 100 MG/100 ML BAG IVPB SCH (14:27)
[2021-01-08] MEDS: LACTULOSE 20 GM/30 ML UDC (FOR ORAL USE ONLY) GT PRN ×2 (14:34→21:54)
[2021-01-08] MEDS: RIFAXIMIN 400 MG/20 ML SUSPENSION NGT SCH ×2 (14:35→21:57)
[2021-01-08] MEDS: MIDODRINE HCL 5 MG TABLET GT SCH ×2 (14:35→18:41)
[2021-01-08] MEDS: NAPH,MB-DB/K PH,MBDB POWDER PACKET GT SCH ×2 (14:35→21:54)
[2021-01-08] MEDS ORDERED: CEFEPIME HCL 1 GM VIAL (RESTRICTED TO ID) ONE ×2 (18:29→21:30)
[2021-01-08] MEDS: CEFEPIME 1 GM in DEXTROSE 5%-WATER 1 GM/100 ML BAG IVPB SCH (18:40)
[2021-01-08] MEDS: CHLORHEXIDINE GLUCONATE 4% CLEANSER FOR DECOLONIZATION TP SCH (21:55)
[2021-01-09] MEDS: INSULIN SLIDING SCALE (NOVOLOG) 1 VIAL SQ SCH ×4 (00:31→18:59)
[2021-01-09] MEDS: CEFEPIME 1 GM in DEXTROSE 5%-WATER 1 GM/100 ML BAG IVPB SCH ×3 (01:32→17:49)
[2021-01-09] MEDS: ACETAMINOPHEN 1000 MG/100 ML VIAL (NON FORMULARY) IVPB PRN (01:37)
[2021-01-09] MEDS ORDERED: PT OWN MED DRAWER 7, Y5N ONE ×3 (05:31→22:26)
[2021-01-09] MEDS: RIFAXIMIN 400 MG/20 ML SUSPENSION NGT SCH ×3 (05:52→23:10)
[2021-01-09] MEDS: NAPH,MB-DB/K PH,MBDB POWDER PACKET GT SCH ×3 (05:52→23:09)
[2021-01-09] MEDS: MIDAZOLAM IN 0.9 % SOD.CHLORID 100 MG/100 ML PLAST..BAG IVPB SCH ×2 (05:56→09:32)
[2021-01-09] MEDS: AMIODARONE IN DEXTROSE,ISO-OSM 360 MG/200 ML BAG IVPB SCH (05:57)
[2021-01-09] MEDS: LACTULOSE 20 GM/30 ML UDC (FOR ORAL USE ONLY) GT PRN (05:57)
[2021-01-09 07:16] LABS: BASO % 0.4 % (0-2.0); EOS % 1.2 % (0-4.5); HEMATOCRIT 25.9 % (35.4-49); HEMOGLOBIN 8.6 GM/dL (11.7-16.9); LYMPH % 11.3 % (8-40); MCH 34.5 pg (25.7-33.7); MCHC 33.1 g/dl (32.0-35.9); MEAN CELL VOLUME 104.1 fl (80-96); MEAN PLT VOLUME 10.5 fl (7.5-11.1); MONO % 5.6 % (3.8-10.2); NEUT % 81.5 % (42.8-82.8); PLATELET COUNT 176 10^3/uL (134-434); RBC 2.48 M/mm3 (4.00-5.60); RDW 17.7 % (11.9-15.9); WHITE BLOOD COUNT 9.2 K/mm3 (4.0-10.0)
[2021-01-09 07:34] LABS: BLOOD UREA NITROGEN 8.8 mg/dL (7-18); CALCIUM 8.1 mg/dL (8.5-10.1)
[2021-01-09 07:35] LABS: ALBUMIN 1.7 g/dl (3.4-5.0); MAGNESIUM 2.1 mg/dL (1.8-2.4)
[2021-01-09 07:39] LABS: CREATININE 0.3 mg/dL (0.55-1.3); PHOSPHOROUS 2.5 mg/dL (2.5-4.9); TOT PROT 5.3 g/dl (6.4-8.2)
[2021-01-09] MEDS: POTASSIUM CHLORIDE 20 MEQ PREMIX IVPB 100 ML IVPB SCH ×4 (08:28→23:05)
[2021-01-09] MEDS: AMINO ACIDS/PROTEIN HYDROLYS 30 ML LIQUID.PKT GT SCH (09:00)
[2021-01-09 09:06] LABS: EPI CELLS >36 /uL (0-25.1); HYALINE CASTS 9 /uL (0-3.1); URINE APPEARANCE TURBID; URINE BACTERIA 2 /uL (0-1359); URINE BILIRUBIN 1+ (NEGATIVE); URINE COLOR RED; URINE GLUCOSE (UA) NEGATIVE (NEGATIVE); URINE KETONE NEGATIVE (NEGATIVE); URINE LEUK ESTERASE 2+ (NEGATIVE); URINE NITRITE NEGATIVE (NEGATIVE); URINE PROTEIN 2+ (NEGATIVE); URINE RBC 14379 /uL (0-23.9); URINE WBC 263 /uL (0-25.8)
[2021-01-09] MEDS ORDERED: DEXTROSE 5%-WATER 100 ML IVPB ONE ×2 (10:42→17:16)
[2021-01-09] MEDS ORDERED: CEFEPIME HCL 1 GM VIAL (RESTRICTED TO ID) ONE ×2 (10:42→17:16)
[2021-01-09] MEDS: METOPROLOL TARTRATE 50 MG TABLET (FP) GT SCH ×2 (11:15→23:09)
[2021-01-09] MEDS: PANTOPRAZOLE SODIUM 40 MG VIAL IVPUSH SCH (11:15)
[2021-01-09] MEDS: CALCITRIOL 1 MCG/ML BOT GT SCH (11:15)
[2021-01-09] MEDS: MIDODRINE HCL 5 MG TABLET GT SCH ×3 (11:15→18:54)
[2021-01-09] MEDS: THIAMINE HCL 200 MG/2 ML VIAL IVPB SCH (11:16)
[2021-01-09] MEDS ORDERED: AMIODARONE HCL 200 MG TABLET PO SCH (11:26)
[2021-01-09] MEDS ORDERED: AMIODARONE HCL 200 MG TABLET PO ONE (13:03)
[2021-01-09] MEDS ORDERED: ACETAMINOPHEN 500 MG TABLET (FP) GT PRN (18:54)
[2021-01-09 22:00] LABS: BLOOD UREA NITROGEN 9.2 mg/dL (7-18); CALCIUM 8.4 mg/dL (8.5-10.1)
[2021-01-09 22:04] LABS: CREATININE 0.3 mg/dL (0.55-1.3)
[2021-01-09] MEDS: CHLORHEXIDINE GLUCONATE 4% CLEANSER FOR DECOLONIZATION TP SCH (23:09)
[2021-01-09] MEDS: AMIODARONE HCL 200 MG TABLET PO SCH (23:09)
[2021-01-09] MEDS: METOCLOPRAMIDE HCL 10 MG/10 ML UNIT DOSE CUP GT SCH (23:09)
[2021-01-10] MEDS: POTASSIUM CHLORIDE 20 MEQ PREMIX IVPB 100 ML IVPB SCH (00:51)
[2021-01-10] MEDS: INSULIN SLIDING SCALE (NOVOLOG) 1 VIAL SQ SCH ×4 (00:57→17:31)
[2021-01-10] MEDS ORDERED: DEXTROSE 5%-WATER 100 ML IVPB ONE ×3 (01:31→17:00)
[2021-01-10] MEDS ORDERED: CEFEPIME HCL 1 GM VIAL (RESTRICTED TO ID) ONE ×3 (01:31→17:00)
[2021-01-10] MEDS: CEFEPIME 1 GM in DEXTROSE 5%-WATER 1 GM/100 ML BAG IVPB SCH ×3 (02:50→17:11)
[2021-01-10] MEDS: METOCLOPRAMIDE HCL 10 MG/10 ML UNIT DOSE CUP GT SCH ×3 (07:00→21:30)
[2021-01-10] MEDS: RIFAXIMIN 400 MG/20 ML SUSPENSION NGT SCH ×3 (07:00→21:30)
[2021-01-10] MEDS: NAPH,MB-DB/K PH,MBDB POWDER PACKET GT SCH ×3 (07:00→21:28)
[2021-01-10 07:12] LABS: BASO % 0.4 % (0-2.0); EOS % 1.8 % (0-4.5); HEMATOCRIT 25.7 % (35.4-49); HEMOGLOBIN 8.3 GM/dL (11.7-16.9); LYMPH % 17.7 % (8-40); MCH 33.6 pg (25.7-33.7); MCHC 32.2 g/dl (32.0-35.9); MEAN CELL VOLUME 104.4 fl (80-96); MEAN PLT VOLUME 10.5 fl (7.5-11.1); MONO % 6.4 % (3.8-10.2); NEUT % 73.7 % (42.8-82.8); PLATELET COUNT 201 10^3/uL (134-434); RBC 2.46 M/mm3 (4.00-5.60); RDW 17.3 % (11.9-15.9); WHITE BLOOD COUNT 8.2 K/mm3 (4.0-10.0)
[2021-01-10 07:30] LABS: ALBUMIN 1.7 g/dl (3.4-5.0); CALCIUM 7.8 mg/dL (8.5-10.1)
[2021-01-10 07:31] LABS: BLOOD UREA NITROGEN 8.4 mg/dL (7-18); MAGNESIUM 1.8 mg/dL (1.8-2.4)
[2021-01-10 07:34] LABS: CREATININE 0.3 mg/dL (0.55-1.3); PHOSPHOROUS 2.8 mg/dL (2.5-4.9)
[2021-01-10 07:35] LABS: BILIRUBIN,TOTAL 0.7 mg/dL (0.2-1); TOT PROT 5.3 g/dl (6.4-8.2)
[2021-01-10] MEDS ORDERED: PT OWN MED DRAWER 7, Y5N ONE ×5 (08:42→21:30)
[2021-01-10] MEDS: AMINO ACIDS/PROTEIN HYDROLYS 30 ML LIQUID.PKT GT SCH (09:43)
[2021-01-10] MEDS: POTASSIUM CHLORIDE ORAL LIQUID 20 MEQ/15 ML PO SCH ×2 (09:44→21:28)
[2021-01-10] MEDS: PANTOPRAZOLE SODIUM 40 MG VIAL IVPUSH SCH (09:44)
[2021-01-10] MEDS: THIAMINE HCL 200 MG/2 ML VIAL IVPB SCH (09:45)
[2021-01-10] MEDS: METOPROLOL TARTRATE 50 MG TABLET (FP) GT SCH ×2 (09:45→21:28)
[2021-01-10] MEDS: AMIODARONE HCL 200 MG TABLET PO SCH ×2 (09:45→21:28)
[2021-01-10] MEDS: MIDODRINE HCL 5 MG TABLET GT SCH ×3 (09:46→17:12)
[2021-01-10] MEDS: CALCITRIOL 1 MCG/ML BOT GT SCH (09:46)
[2021-01-10] MEDS ORDERED: SODIUM CHLORIDE 0.9% 500 ML INFUS.BAG IV ONE (15:19)
[2021-01-10] MEDS ORDERED: NOREPINEPHRINE BITARTRATE 16,000 MCG in SODIUM CHLORIDE 484 ML IV SCH (15:45)
[2021-01-10] MEDS: NOREPINEPHRINE NS PREMIX 16,000 MCG/500 ML BAG IVPB SCH (15:52)
[2021-01-10] MEDS: MIDAZOLAM IN 0.9 % SOD.CHLORID 100 MG/100 ML PLAST..BAG IVPB SCH (17:12)
[2021-01-10] MEDS ORDERED: VANCOMYCIN 1 GM in D5W (PRE-DOCKED) 1,000 MG/250 ML IVPB ONE (18:21)
[2021-01-10] MEDS ORDERED: METOPROLOL TARTRATE 5 MG/5 ML VIAL ONE (18:33)
[2021-01-10] MEDS ORDERED: ENOXAPARIN NA (PORCINE) 60 MG/0.6 ML DISP.SYRIN SQ SCH (19:00)
[2021-01-10 19:59] LABS: BLOOD UREA NITROGEN 10.7 mg/dL (7-18)
[2021-01-10 20:03] LABS: CREATININE 0.4 mg/dL (0.55-1.3)
[2021-01-10 20:23] LABS: LACTIC ACID 2.5 mmol/L (0.4-2.0)
[2021-01-10] MEDS: CHLORHEXIDINE GLUCONATE 4% CLEANSER FOR DECOLONIZATION TP SCH (21:28)
[2021-01-10] MEDS: FENTANYL IVPB 500 MCG/100 ML BAG IVPB SCH (21:48)
[2021-01-11] MEDS: CEFEPIME 1 GM in DEXTROSE 5%-WATER 1 GM/100 ML BAG IVPB SCH ×3 (02:50→17:09)
[2021-01-11] MEDS: INSULIN SLIDING SCALE (NOVOLOG) 1 VIAL SQ SCH ×4 (02:54→17:28)
[2021-01-11] MEDS ORDERED: DEXTROSE 5%-WATER 100 ML IVPB ONE ×3 (03:04→17:04)
[2021-01-11] MEDS ORDERED: CEFEPIME HCL 1 GM VIAL (RESTRICTED TO ID) ONE ×3 (03:04→17:04)
[2021-01-11] MEDS ORDERED: PT OWN MED DRAWER 7, Y5N ONE ×7 (05:45→21:16)
[2021-01-11] MEDS: METOCLOPRAMIDE HCL 10 MG/10 ML UNIT DOSE CUP GT SCH ×4 (05:51→21:20)
[2021-01-11] MEDS: NAPH,MB-DB/K PH,MBDB POWDER PACKET GT SCH ×3 (05:52→21:22)
[2021-01-11] MEDS: RIFAXIMIN 400 MG/20 ML SUSPENSION NGT SCH ×3 (05:52→21:22)
[2021-01-11 06:37] LABS: BASO % 0.7 % (0-2.0); EOS % 2.2 % (0-4.5); HEMATOCRIT 24.6 % (35.4-49); HEMOGLOBIN 7.9 GM/dL (11.7-16.9); LYMPH % 20.3 % (8-40); MCH 33.3 pg (25.7-33.7); MCHC 32.1 g/dl (32.0-35.9); MEAN CELL VOLUME 103.6 fl (80-96); MEAN PLT VOLUME 10.1 fl (7.5-11.1); MONO % 6.2 % (3.8-10.2); NEUT % 70.6 % (42.8-82.8); PLATELET COUNT 232 10^3/uL (134-434); RBC 2.37 M/mm3 (4.00-5.60); RDW 17.2 % (11.9-15.9); WHITE BLOOD COUNT 11.2 K/mm3 (4.0-10.0)
[2021-01-11 06:59] LABS: CALCIUM 7.9 mg/dL (8.5-10.1)
[2021-01-11 07:00] LABS: ALBUMIN 1.6 g/dl (3.4-5.0); BLOOD UREA NITROGEN 12.1 mg/dL (7-18); MAGNESIUM 1.8 mg/dL (1.8-2.4)
[2021-01-11 07:03] LABS: CREATININE 0.3 mg/dL (0.55-1.3); PHOSPHOROUS 3.2 mg/dL (2.5-4.9)
[2021-01-11 07:04] LABS: BILIRUBIN,TOTAL 0.7 mg/dL (0.2-1); TOT PROT 5.3 g/dl (6.4-8.2)
[2021-01-11] MEDS ORDERED: VANCOMYCIN 1,000 MG in DEXTROSE 5%-WATER - 250 ML IVPB SCH (09:00)
[2021-01-11] MEDS: POTASSIUM CHLORIDE ORAL LIQUID 20 MEQ/15 ML PO SCH ×2 (09:15→21:22)
[2021-01-11] MEDS: AMINO ACIDS/PROTEIN HYDROLYS 30 ML LIQUID.PKT GT SCH (09:15)
[2021-01-11] MEDS: CALCITRIOL 1 MCG/ML BOT GT SCH (09:15)
[2021-01-11] MEDS: PANTOPRAZOLE SODIUM 40 MG VIAL IVPUSH SCH (09:16)
[2021-01-11] MEDS: VANCOMYCIN 1 GRAM (PRE-DOCKED) 1,000 MG/250 ML BAG IVPB SCH ×2 (09:16→21:19)
[2021-01-11] MEDS: THIAMINE HCL 200 MG/2 ML VIAL IVPB SCH (09:16)
[2021-01-11] MEDS: AMIODARONE HCL 200 MG TABLET PO SCH ×2 (09:17→21:20)
[2021-01-11] MEDS: METOPROLOL TARTRATE 50 MG TABLET (FP) GT SCH ×2 (09:17→21:21)
[2021-01-11] MEDS: MIDODRINE HCL 5 MG TABLET GT SCH ×3 (09:18→17:10)
[2021-01-11] MEDS ORDERED: FUROSEMIDE 40 MG/4 ML INJECTABLE VIAL IVPUSH ONE (14:23)
[2021-01-11] MEDS: FENTANYL IVPB 500 MCG/100 ML BAG IVPB SCH (16:55)
[2021-01-11] MEDS: CHLORHEXIDINE GLUCONATE 4% CLEANSER FOR DECOLONIZATION TP SCH (21:21)
[2021-01-12] MEDS: CEFEPIME 1 GM in DEXTROSE 5%-WATER 1 GM/100 ML BAG IVPB SCH ×3 (02:45→17:42)
[2021-01-12] MEDS ORDERED: PT OWN MED DRAWER 7, Y5N ONE ×5 (02:58→21:29)
[2021-01-12] MEDS ORDERED: DEXTROSE 5%-WATER 100 ML IVPB ONE ×3 (02:58→14:24)
[2021-01-12] MEDS ORDERED: CEFEPIME HCL 1 GM VIAL (RESTRICTED TO ID) ONE ×3 (02:58→14:24)
[2021-01-12] MEDS: METOCLOPRAMIDE HCL 10 MG/10 ML UNIT DOSE CUP GT SCH ×4 (03:02→21:39)
[2021-01-12] MEDS: INSULIN SLIDING SCALE (NOVOLOG) 1 VIAL SQ SCH ×4 (05:34→17:34)
[2021-01-12] MEDS: NAPH,MB-DB/K PH,MBDB POWDER PACKET GT SCH ×3 (05:35→21:34)
[2021-01-12] MEDS: RIFAXIMIN 400 MG/20 ML SUSPENSION NGT SCH ×3 (05:35→21:34)
[2021-01-12] MEDS: FENTANYL IVPB 500 MCG/100 ML BAG IVPB SCH ×4 (06:30→21:40)
[2021-01-12 06:48] LABS: BASO % 0.5 % (0-2.0); EOS % 2.2 % (0-4.5); HEMATOCRIT 22.9 % (35.4-49); HEMOGLOBIN 7.6 GM/dL (11.7-16.9); LYMPH % 17.3 % (8-40); MCH 34.1 pg (25.7-33.7); MEAN CELL VOLUME 103.1 fl (80-96); MONO % 6.8 % (3.8-10.2); NEUT % 73.2 % (42.8-82.8); PLATELET COUNT 213 10^3/uL (134-434); RBC 2.22 M/mm3 (4.00-5.60); RDW 16.8 % (11.9-15.9)
[2021-01-12 07:05] LABS: ALBUMIN 1.6 g/dl (3.4-5.0); BLOOD UREA NITROGEN 12.9 mg/dL (7-18); CALCIUM 7.8 mg/dL (8.5-10.1); MAGNESIUM 1.8 mg/dL (1.8-2.4)
[2021-01-12 07:08] LABS: PHOSPHOROUS 3.5 mg/dL (2.5-4.9)
[2021-01-12 07:09] LABS: CREATININE 0.4 mg/dL (0.55-1.3)
[2021-01-12 07:10] LABS: TOT PROT 5.5 g/dl (6.4-8.2)
[2021-01-12] MEDS: AMINO ACIDS/PROTEIN HYDROLYS 30 ML LIQUID.PKT GT SCH (08:35)
[2021-01-12] MEDS: VANCOMYCIN 1 GRAM (PRE-DOCKED) 1,000 MG/250 ML BAG IVPB SCH (09:00)
[2021-01-12] MEDS: AMIODARONE HCL 200 MG TABLET PO SCH ×2 (09:40→21:33)
[2021-01-12] MEDS: METOPROLOL TARTRATE 50 MG TABLET (FP) GT SCH ×2 (09:49→21:34)
[2021-01-12] MEDS: POTASSIUM CHLORIDE ORAL LIQUID 20 MEQ/15 ML PO SCH ×2 (09:55→21:34)
[2021-01-12] MEDS: MIDODRINE HCL 5 MG TABLET GT SCH ×3 (09:56→17:41)
[2021-01-12] MEDS: PANTOPRAZOLE SODIUM 40 MG VIAL IVPUSH SCH (09:59)
[2021-01-12] MEDS: THIAMINE HCL 200 MG/2 ML VIAL IVPB SCH (10:00)
[2021-01-12] MEDS: CALCITRIOL 1 MCG/ML BOT GT SCH (10:00)
[2021-01-12 10:33] LABS: ANISOCYTOSIS 1+; MACROCYTOSIS 0; PLATELET ESTIMATE NORMAL; TOXIC GRANULATION 1+
[2021-01-12] MEDS: NOREPINEPHRINE NS PREMIX 16,000 MCG/500 ML BAG IVPB SCH ×2 (15:43→21:38)
[2021-01-12] MEDS: LACTATED RINGERS SOLUTION 1,000 ML/1,000 ML INFUS.BAG IV SCH (19:25)
[2021-01-12] MEDS: MIDAZOLAM IN 0.9 % SOD.CHLORID 100 MG/100 ML PLAST..BAG IVPB SCH (21:37)
[2021-01-12] MEDS: CHLORHEXIDINE GLUCONATE 4% CLEANSER FOR DECOLONIZATION TP SCH (21:39)
[2021-01-13] MEDS: INSULIN SLIDING SCALE (NOVOLOG) 1 VIAL SQ SCH ×4 (00:17→17:52)
[2021-01-13] MEDS ORDERED: CEFEPIME HCL 1 GM VIAL (RESTRICTED TO ID) ONE ×4 (01:27→22:01)
[2021-01-13] MEDS ORDERED: DEXTROSE 5%-WATER 100 ML IVPB ONE ×4 (01:27→22:01)
[2021-01-13] MEDS: CEFEPIME 1 GM in DEXTROSE 5%-WATER 1 GM/100 ML BAG IVPB SCH ×3 (01:30→17:49)
[2021-01-13] MEDS: METOCLOPRAMIDE HCL 10 MG/10 ML UNIT DOSE CUP GT SCH ×4 (04:02→21:49)
[2021-01-13] MEDS: RIFAXIMIN 400 MG/20 ML SUSPENSION NGT SCH ×3 (05:30→21:51)
[2021-01-13] MEDS: NAPH,MB-DB/K PH,MBDB POWDER PACKET GT SCH ×3 (05:30→21:50)
[2021-01-13 07:01] LABS: EOS % 1.1 % (0-4.5); HEMATOCRIT 22.2 % (35.4-49); HEMOGLOBIN 7.1 GM/dL (11.7-16.9); LYMPH % 17.8 % (8-40); MCH 32.9 pg (25.7-33.7); MEAN CELL VOLUME 102.8 fl (80-96); MONO % 8.7 % (3.8-10.2); NEUT % 71.4 % (42.8-82.8); PLATELET COUNT 212 10^3/uL (134-434); RBC 2.16 M/mm3 (4.00-5.60); RDW 16.9 % (11.9-15.9); WHITE BLOOD COUNT 12.2 K/mm3 (4.0-10.0)
[2021-01-13 07:17] LABS: BLOOD UREA NITROGEN 13.2 mg/dL (7-18)
[2021-01-13 07:18] LABS: ALBUMIN 1.7 g/dl (3.4-5.0); MAGNESIUM 1.8 mg/dL (1.8-2.4)
[2021-01-13 07:21] LABS: CREATININE 0.3 mg/dL (0.55-1.3); PHOSPHOROUS 2.7 mg/dL (2.5-4.9)
[2021-01-13 07:22] LABS: TOT PROT 5.5 g/dl (6.4-8.2)
[2021-01-13] MEDS ORDERED: POTASSIUM CHLORIDE 20 MEQ PREMIX IVPB 100 ML IVPB SCH (08:00)
[2021-01-13] MEDS ORDERED: MAGNESIUM SULF 50% (8.12 MEQ/2 ML-1 GM VIAL) IVPB ONE (08:45)
[2021-01-13 08:56] LABS: ANISOCYTOSIS 1+; MACROCYTOSIS 2+; PLATELET ESTIMATE NORMAL; TOXIC GRANULATION 1+
[2021-01-13] MEDS ORDERED: PT OWN MED DRAWER 7, Y5N ONE ×2 (09:27→21:23)
[2021-01-13] MEDS: AMINO ACIDS/PROTEIN HYDROLYS 30 ML LIQUID.PKT GT SCH (09:31)
[2021-01-13] MEDS: PANTOPRAZOLE SODIUM 40 MG VIAL IVPUSH SCH (09:32)
[2021-01-13] MEDS: POTASSIUM CHLORIDE ORAL LIQUID 20 MEQ/15 ML PO SCH ×2 (09:32→21:51)
[2021-01-13] MEDS: METOPROLOL TARTRATE 50 MG TABLET (FP) GT SCH ×2 (09:33→21:50)
[2021-01-13] MEDS: AMIODARONE HCL 200 MG TABLET PO SCH ×2 (09:33→21:50)
[2021-01-13] MEDS: THIAMINE HCL 200 MG/2 ML VIAL IVPB SCH (09:33)
[2021-01-13] MEDS: MIDODRINE HCL 5 MG TABLET GT SCH ×3 (09:34→17:49)
[2021-01-13] MEDS: MIDAZOLAM IN 0.9 % SOD.CHLORID 100 MG/100 ML PLAST..BAG IVPB SCH (09:35)
[2021-01-13] MEDS: LACTATED RINGERS SOLUTION 1,000 ML/1,000 ML INFUS.BAG IV SCH ×2 (09:35→21:49)
[2021-01-13] MEDS ORDERED: LORazepam 2 MG/ML SDV VIAL IVPUSH PRN ×2 (10:56→11:12)
[2021-01-13] MEDS: levETIRAcetam 500 MG/5 ML INJECTION VIAL IVPB SCH ×2 (11:47→21:50)
[2021-01-13] MEDS: FENTANYL IVPB 500 MCG/100 ML BAG IVPB SCH ×2 (17:46→21:50)
[2021-01-13] MEDS: CHLORHEXIDINE GLUCONATE 4% CLEANSER FOR DECOLONIZATION TP SCH (21:50)
[2021-01-14] MEDS: CEFEPIME 1 GM in DEXTROSE 5%-WATER 1 GM/100 ML BAG IVPB SCH ×3 (02:00→17:27)
[2021-01-14] MEDS: METOCLOPRAMIDE HCL 10 MG/10 ML UNIT DOSE CUP GT SCH ×5 (03:15→21:28)
[2021-01-14] MEDS: NAPH,MB-DB/K PH,MBDB POWDER PACKET GT SCH ×3 (05:40→21:27)
[2021-01-14] MEDS: RIFAXIMIN 400 MG/20 ML SUSPENSION NGT SCH ×3 (05:41→22:00)
[2021-01-14] MEDS: INSULIN SLIDING SCALE (NOVOLOG) 1 VIAL SQ SCH ×4 (06:49→17:27)
[2021-01-14 07:11] LABS: BASO % 0.7 % (0-2.0); HEMATOCRIT 20.7 % (35.4-49); LYMPH % 15.9 % (8-40); MCH 33.6 pg (25.7-33.7); MCHC 32.7 g/dl (32.0-35.9); MEAN CELL VOLUME 102.9 fl (80-96); MEAN PLT VOLUME 9.6 fl (7.5-11.1); MONO % 8.9 % (3.8-10.2); NEUT % 73.5 % (42.8-82.8); PLATELET COUNT 214 10^3/uL (134-434); RBC 2.01 M/mm3 (4.00-5.60); RDW 16.4 % (11.9-15.9); WHITE BLOOD COUNT 11.2 K/mm3 (4.0-10.0)
[2021-01-14 07:15] LABS: HEMOGLOBIN 6.8 GM/dL (11.7-16.9)
[2021-01-14 07:34] LABS: ALBUMIN 1.6 g/dl (3.4-5.0); BLOOD UREA NITROGEN 11.7 mg/dL (7-18); MAGNESIUM 2.1 mg/dL (1.8-2.4)
[2021-01-14 07:37] LABS: CREATININE 0.3 mg/dL (0.55-1.3); PHOSPHOROUS 2.6 mg/dL (2.5-4.9)
[2021-01-14 07:39] LABS: TOT PROT 5.4 g/dl (6.4-8.2)
[2021-01-14 07:40] LABS: BILIRUBIN,TOTAL 1.4 mg/dL (0.2-1)
[2021-01-14] MEDS: AMINO ACIDS/PROTEIN HYDROLYS 30 ML LIQUID.PKT GT SCH (07:44)
[2021-01-14] MEDS ORDERED: DEXTROSE 5%-WATER 100 ML IVPB ONE ×2 (09:16→17:18)
[2021-01-14] MEDS ORDERED: CEFEPIME HCL 1 GM VIAL (RESTRICTED TO ID) ONE ×2 (09:16→17:18)
[2021-01-14] MEDS: PANTOPRAZOLE SODIUM 40 MG VIAL IVPUSH SCH (09:20)
[2021-01-14] MEDS: POTASSIUM CHLORIDE ORAL LIQUID 20 MEQ/15 ML PO SCH ×3 (09:21→21:27)
[2021-01-14] MEDS: THIAMINE HCL 200 MG/2 ML VIAL IVPB SCH (09:21)
[2021-01-14] MEDS: levETIRAcetam 500 MG/5 ML INJECTION VIAL IVPB SCH ×2 (09:21→21:28)
[2021-01-14] MEDS: METOPROLOL TARTRATE 50 MG TABLET (FP) GT SCH ×2 (09:21→21:27)
[2021-01-14] MEDS: AMIODARONE HCL 200 MG TABLET PO SCH ×2 (09:21→21:27)
[2021-01-14] MEDS: MIDODRINE HCL 5 MG TABLET GT SCH ×3 (09:22→17:28)
[2021-01-14 09:47] LABS: ANISOCYTOSIS 1+; MACROCYTOSIS 0; PLATELET ESTIMATE NORMAL
[2021-01-14] MEDS: AMINO ACIDS 4.25%/D5W 1,000 ML IV SCH (15:54)
[2021-01-14] MEDS: FENTANYL IVPB 500 MCG/100 ML BAG IVPB SCH ×2 (16:53→21:28)
[2021-01-14] MEDS: CHLORHEXIDINE GLUCONATE 4% CLEANSER FOR DECOLONIZATION TP SCH (21:28)
[2021-01-15] MEDS ORDERED: DEXTROSE 5%-WATER 100 ML IVPB ONE ×3 (00:24→16:59)
[2021-01-15] MEDS ORDERED: CEFEPIME HCL 1 GM VIAL (RESTRICTED TO ID) ONE ×3 (00:24→16:59)
[2021-01-15] MEDS: CEFEPIME 1 GM in DEXTROSE 5%-WATER 1 GM/100 ML BAG IVPB SCH ×3 (01:18→17:05)
[2021-01-15] MEDS: INSULIN SLIDING SCALE (NOVOLOG) 1 VIAL SQ SCH ×4 (01:19→17:25)
[2021-01-15] MEDS: METOCLOPRAMIDE HCL 10 MG/10 ML UNIT DOSE CUP GT SCH ×4 (03:30→21:38)
[2021-01-15] MEDS: RIFAXIMIN 400 MG/20 ML SUSPENSION NGT SCH ×3 (05:56→22:41)
[2021-01-15] MEDS: NAPH,MB-DB/K PH,MBDB POWDER PACKET GT SCH ×3 (05:56→22:40)
[2021-01-15 07:19] LABS: BASO % 0.7 % (0-2.0); EOS % 1.1 % (0-4.5); HEMOGLOBIN 8.6 GM/dL (11.7-16.9); LYMPH % 15.8 % (8-40); MCH 32.5 pg (25.7-33.7); MCHC 33.1 g/dl (32.0-35.9); MEAN CELL VOLUME 98.4 fl (80-96); MEAN PLT VOLUME 10.4 fl (7.5-11.1); MONO % 9.1 % (3.8-10.2); NEUT % 73.3 % (42.8-82.8); PLATELET COUNT 212 10^3/uL (134-434); RBC 2.65 M/mm3 (4.00-5.60); RDW 18.3 % (11.9-15.9)
[2021-01-15 07:29] LABS: ALBUMIN 1.7 g/dl (3.4-5.0); CALCIUM 7.8 mg/dL (8.5-10.1)
[2021-01-15 07:30] LABS: BLOOD UREA NITROGEN 10.3 mg/dL (7-18); MAGNESIUM 1.8 mg/dL (1.8-2.4)
[2021-01-15 07:32] LABS: PHOSPHOROUS 2.5 mg/dL (2.5-4.9)
[2021-01-15 07:33] LABS: CREATININE 0.2 mg/dL (0.55-1.3)
[2021-01-15 07:34] LABS: BILIRUBIN,TOTAL 0.8 mg/dL (0.2-1); TOT PROT 5.3 g/dl (6.4-8.2)
[2021-01-15] MEDS: AMINO ACIDS/PROTEIN HYDROLYS 30 ML LIQUID.PKT GT SCH (08:56)
[2021-01-15 09:16] LABS: ANISOCYTOSIS 1+; MACROCYTOSIS 0; PLATELET ESTIMATE NORMAL
[2021-01-15] MEDS: levETIRAcetam 500 MG/5 ML INJECTION VIAL IVPB SCH ×2 (09:30→22:40)
[2021-01-15] MEDS: POTASSIUM CHLORIDE ORAL LIQUID 20 MEQ/15 ML PO SCH ×2 (09:30→22:40)
[2021-01-15] MEDS: MIDODRINE HCL 5 MG TABLET GT SCH ×3 (09:30→17:05)
[2021-01-15] MEDS: AMIODARONE HCL 200 MG TABLET PO SCH ×2 (09:30→22:39)
[2021-01-15] MEDS: PANTOPRAZOLE SODIUM 40 MG VIAL IVPUSH SCH (09:30)
[2021-01-15] MEDS: THIAMINE HCL 200 MG/2 ML VIAL IVPB SCH (09:30)
[2021-01-15] MEDS: FENTANYL IVPB 500 MCG/100 ML BAG IVPB SCH (13:00)
[2021-01-15] MEDS ORDERED: PT OWN MED DRAWER 7, Y5N ONE ×4 (15:02→23:31)
[2021-01-15] MEDS: AMINO ACIDS 4.25%/D5W 1,000 ML IV SCH (15:18)
[2021-01-15] MEDS: CHLORHEXIDINE GLUCONATE 4% CLEANSER FOR DECOLONIZATION TP SCH (22:40)
[2021-01-16] MEDS ORDERED: DEXTROSE 5%-WATER 100 ML IVPB ONE ×2 (00:20→08:18)
[2021-01-16] MEDS ORDERED: CEFEPIME HCL 1 GM VIAL (RESTRICTED TO ID) ONE ×2 (00:20→08:18)
[2021-01-16] MEDS: INSULIN SLIDING SCALE (NOVOLOG) 1 VIAL SQ SCH ×4 (01:41→19:07)
[2021-01-16] MEDS: CEFEPIME 1 GM in DEXTROSE 5%-WATER 1 GM/100 ML BAG IVPB SCH ×2 (01:42→09:01)
[2021-01-16] MEDS: METOCLOPRAMIDE HCL 10 MG/10 ML UNIT DOSE CUP GT SCH ×4 (03:20→21:15)
[2021-01-16] MEDS: FENTANYL IVPB 500 MCG/100 ML BAG IVPB SCH ×2 (03:36→08:44)
[2021-01-16] MEDS: RIFAXIMIN 400 MG/20 ML SUSPENSION NGT SCH ×3 (06:21→22:00)
[2021-01-16] MEDS: NAPH,MB-DB/K PH,MBDB POWDER PACKET GT SCH ×3 (06:21→22:02)
[2021-01-16] MEDS ORDERED: PT OWN MED DRAWER 7, Y5N ONE ×4 (06:45→22:26)
[2021-01-16 07:07] LABS: BASO % 0.6 % (0-2.0); EOS % 0.4 % (0-4.5); HEMATOCRIT 26.2 % (35.4-49); HEMOGLOBIN 8.9 GM/dL (11.7-16.9); LYMPH % 15.2 % (8-40); MCH 33.4 pg (25.7-33.7); MEAN CELL VOLUME 98.2 fl (80-96); MEAN PLT VOLUME 9.7 fl (7.5-11.1); MONO % 8.2 % (3.8-10.2); NEUT % 75.6 % (42.8-82.8); PLATELET COUNT 214 10^3/uL (134-434); RBC 2.67 M/mm3 (4.00-5.60); RDW 17.9 % (11.9-15.9); WHITE BLOOD COUNT 9.1 K/mm3 (4.0-10.0)
[2021-01-16 07:29] LABS: ALBUMIN 1.8 g/dl (3.4-5.0); BLOOD UREA NITROGEN 14.6 mg/dL (7-18); CALCIUM 7.8 mg/dL (8.5-10.1)
[2021-01-16 07:30] LABS: MAGNESIUM 1.8 mg/dL (1.8-2.4)
[2021-01-16 07:33] LABS: CREATININE 0.2 mg/dL (0.55-1.3); PHOSPHOROUS 2.4 mg/dL (2.5-4.9)
[2021-01-16 07:34] LABS: BILIRUBIN,TOTAL 0.7 mg/dL (0.2-1); TOT PROT 5.9 g/dl (6.4-8.2)
[2021-01-16] MEDS: AMINO ACIDS/PROTEIN HYDROLYS 30 ML LIQUID.PKT GT SCH ×2 (08:41→14:37)
[2021-01-16] MEDS: THIAMINE HCL 200 MG/2 ML VIAL IVPB SCH (09:00)
[2021-01-16] MEDS: levETIRAcetam 500 MG/5 ML INJECTION VIAL IVPB SCH ×2 (09:01→22:01)
[2021-01-16] MEDS: PANTOPRAZOLE SODIUM 40 MG VIAL IVPUSH SCH (09:02)
[2021-01-16] MEDS ORDERED: NAPH,MB-DB/K PH,MBDB POWDER PACKET PO ONE (09:03)
[2021-01-16 10:37] LABS: ANISOCYTOSIS 1+; MACROCYTOSIS 0; PLATELET ESTIMATE NORMAL; TEAR DROP CELLS 1+
[2021-01-16] MEDS: POTASSIUM CHLORIDE ORAL LIQUID 20 MEQ/15 ML PO SCH ×2 (14:38→22:00)
[2021-01-16] MEDS: MIDODRINE HCL 5 MG TABLET GT SCH ×3 (14:38→19:06)
[2021-01-16] MEDS: AMIODARONE HCL 200 MG TABLET PO SCH ×2 (14:39→22:01)
[2021-01-16] MEDS: AMINO ACIDS 4.25%/D5W 1,000 ML IV SCH (14:40)
[2021-01-16] MEDS ORDERED: ACETAMINOPHEN 650 MG/20.3 ML ORAL SOLUTION (CUPS) PO PRN (15:55)
[2021-01-16] MEDS ORDERED: SODIUM PHOSPHATE - 30 MM in SODIUM CHLORIDE 250 ML IVPB ONE (18:18)
[2021-01-16] MEDS: CHLORHEXIDINE GLUCONATE 4% CLEANSER FOR DECOLONIZATION TP SCH (22:01)
[2021-01-17] MEDS: METOCLOPRAMIDE HCL 10 MG/10 ML UNIT DOSE CUP GT SCH ×4 (00:15→21:13)
[2021-01-17] MEDS: NAPH,MB-DB/K PH,MBDB POWDER PACKET GT SCH ×3 (06:09→21:13)
[2021-01-17] MEDS: INSULIN SLIDING SCALE (NOVOLOG) 1 VIAL SQ SCH ×4 (07:08→17:58)
[2021-01-17] MEDS: RIFAXIMIN 400 MG/20 ML SUSPENSION NGT SCH ×3 (07:08→21:14)
[2021-01-17 07:49] LABS: BASO % 0.8 % (0-2.0); EOS % 0.8 % (0-4.5); HEMATOCRIT 24.4 % (35.4-49); HEMOGLOBIN 8.3 GM/dL (11.7-16.9); LYMPH % 14.5 % (8-40); MCH 33.3 pg (25.7-33.7); MEAN PLT VOLUME 9.6 fl (7.5-11.1); MONO % 7.3 % (3.8-10.2); NEUT % 76.6 % (42.8-82.8); PLATELET COUNT 218 10^3/uL (134-434); RBC 2.49 M/mm3 (4.00-5.60); RDW 17.6 % (11.9-15.9); WHITE BLOOD COUNT 10.2 K/mm3 (4.0-10.0)
[2021-01-17 08:15] LABS: BLOOD UREA NITROGEN 10.4 mg/dL (7-18); CALCIUM 7.5 mg/dL (8.5-10.1)
[2021-01-17 08:16] LABS: ALBUMIN 1.7 g/dl (3.4-5.0); MAGNESIUM 1.7 mg/dL (1.8-2.4)
[2021-01-17 08:19] LABS: CREATININE 0.2 mg/dL (0.55-1.3); PHOSPHOROUS 3.8 mg/dL (2.5-4.9)
[2021-01-17 08:20] LABS: BILIRUBIN,TOTAL 0.8 mg/dL (0.2-1); TOT PROT 5.5 g/dl (6.4-8.2)
[2021-01-17] MEDS: PANTOPRAZOLE SODIUM 40 MG VIAL IVPUSH SCH (09:13)
[2021-01-17] MEDS: POTASSIUM CHLORIDE ORAL LIQUID 20 MEQ/15 ML PO SCH ×2 (09:13→21:14)
[2021-01-17] MEDS: MIDODRINE HCL 5 MG TABLET GT SCH ×3 (09:13→17:59)
[2021-01-17] MEDS: AMINO ACIDS/PROTEIN HYDROLYS 30 ML LIQUID.PKT GT SCH (09:13)
[2021-01-17] MEDS: AMIODARONE HCL 200 MG TABLET PO SCH (09:13)
[2021-01-17] MEDS: levETIRAcetam 500 MG/5 ML INJECTION VIAL IVPB SCH ×2 (09:14→21:13)
[2021-01-17] MEDS: THIAMINE HCL 200 MG/2 ML VIAL IVPB SCH (09:14)
[2021-01-17] MEDS ORDERED: PT OWN MED DRAWER 7, Y5N ONE ×2 (09:21→20:51)
[2021-01-17] MEDS: CHLORHEXIDINE GLUCONATE 4% CLEANSER FOR DECOLONIZATION TP SCH (21:13)
[2021-01-17] MEDS: METOPROLOL TARTRATE 25 MG TABLET (FP) GT SCH (21:13)
[2021-01-18] MEDS: INSULIN SLIDING SCALE (NOVOLOG) 1 VIAL SQ SCH ×4 (01:08→17:23)
[2021-01-18] MEDS: METOCLOPRAMIDE HCL 10 MG/10 ML UNIT DOSE CUP GT SCH ×4 (02:18→21:16)
[2021-01-18] MEDS: NAPH,MB-DB/K PH,MBDB POWDER PACKET GT SCH ×3 (06:15→21:31)
[2021-01-18] MEDS: RIFAXIMIN 400 MG/20 ML SUSPENSION NGT SCH ×3 (06:16→21:32)
[2021-01-18 06:58] LABS: HEMATOCRIT 27.3 % (35.4-49); HEMOGLOBIN 8.9 GM/dL (11.7-16.9); MCH 32.6 pg (25.7-33.7); MCHC 32.8 g/dl (32.0-35.9); MEAN CELL VOLUME 99.4 fl (80-96); MEAN PLT VOLUME 10.2 fl (7.5-11.1); PLATELET COUNT 267 10^3/uL (134-434); RBC 2.74 M/mm3 (4.00-5.60); RDW 17.5 % (11.9-15.9); WHITE BLOOD COUNT 9.6 K/mm3 (4.0-10.0)
[2021-01-18 07:18] LABS: ALBUMIN 1.9 g/dl (3.4-5.0); BLOOD UREA NITROGEN 10.2 mg/dL (7-18); CALCIUM 7.9 mg/dL (8.5-10.1)
[2021-01-18 07:21] LABS: PHOSPHOROUS 3.1 mg/dL (2.5-4.9)
[2021-01-18 07:22] LABS: CREATININE 0.2 mg/dL (0.55-1.3)
[2021-01-18 07:23] LABS: BILIRUBIN,TOTAL 0.9 mg/dL (0.2-1)
[2021-01-18] MEDS: AMINO ACIDS/PROTEIN HYDROLYS 30 ML LIQUID.PKT GT SCH (10:25)
[2021-01-18] MEDS: MIDODRINE HCL 5 MG TABLET GT SCH ×3 (10:25→17:20)
[2021-01-18] MEDS: AMIODARONE HCL 200 MG TABLET GT SCH (10:26)
[2021-01-18] MEDS: METOPROLOL TARTRATE 25 MG TABLET (FP) GT SCH ×2 (10:26→21:31)
[2021-01-18] MEDS: levETIRAcetam 500 MG/5 ML INJECTION VIAL IVPB SCH ×2 (10:26→21:16)
[2021-01-18] MEDS: POTASSIUM CHLORIDE ORAL LIQUID 20 MEQ/15 ML PO SCH ×2 (10:27→21:31)
[2021-01-18] MEDS: THIAMINE HCL 200 MG/2 ML VIAL IVPB SCH (10:27)
[2021-01-18] MEDS: PANTOPRAZOLE SODIUM 40 MG VIAL IVPUSH SCH (10:27)
[2021-01-18] MEDS ORDERED: PT OWN MED DRAWER 7, Y5N ONE ×3 (12:49→21:10)
[2021-01-18] MEDS: CHLORHEXIDINE GLUCONATE 4% CLEANSER FOR DECOLONIZATION TP SCH (21:16)
[2021-01-19] MEDS: INSULIN SLIDING SCALE (NOVOLOG) 1 VIAL SQ SCH ×4 (00:49→17:22)
[2021-01-19] MEDS: METOCLOPRAMIDE HCL 10 MG/10 ML UNIT DOSE CUP GT SCH ×4 (03:20→21:19)
[2021-01-19] MEDS: RIFAXIMIN 400 MG/20 ML SUSPENSION NGT SCH ×3 (05:55→21:20)
[2021-01-19] MEDS: NAPH,MB-DB/K PH,MBDB POWDER PACKET GT SCH ×3 (05:55→21:19)
[2021-01-19] MEDS ORDERED: PT OWN MED DRAWER 7, Y5N ONE ×4 (06:08→21:16)
[2021-01-19 06:42] LABS: HEMATOCRIT 24.5 % (35.4-49); HEMOGLOBIN 8.3 GM/dL (11.7-16.9); MCH 33.1 pg (25.7-33.7); MCHC 33.7 g/dl (32.0-35.9); MEAN CELL VOLUME 98.1 fl (80-96); MEAN PLT VOLUME 9.5 fl (7.5-11.1); PLATELET COUNT 260 10^3/uL (134-434); RDW 16.9 % (11.9-15.9); WHITE BLOOD COUNT 9.8 K/mm3 (4.0-10.0)
[2021-01-19 06:53] LABS: BLOOD UREA NITROGEN 8.7 mg/dL (7-18); CALCIUM 7.8 mg/dL (8.5-10.1); MAGNESIUM 1.9 mg/dL (1.8-2.4)
[2021-01-19 06:57] LABS: CREATININE 0.2 mg/dL (0.55-1.3); PHOSPHOROUS 3.1 mg/dL (2.5-4.9)
[2021-01-19] MEDS: AMINO ACIDS/PROTEIN HYDROLYS 30 ML LIQUID.PKT GT SCH (09:00)
[2021-01-19] MEDS: MIDODRINE HCL 5 MG TABLET GT SCH ×3 (09:53→17:22)
[2021-01-19] MEDS: AMIODARONE HCL 200 MG TABLET GT SCH (09:53)
[2021-01-19] MEDS: METOPROLOL TARTRATE 25 MG TABLET (FP) GT SCH ×2 (09:53→21:19)
[2021-01-19] MEDS: POTASSIUM CHLORIDE ORAL LIQUID 20 MEQ/15 ML PO SCH ×2 (09:53→21:19)
[2021-01-19] MEDS: PANTOPRAZOLE SODIUM 40 MG VIAL IVPUSH SCH (09:53)
[2021-01-19] MEDS: THIAMINE HCL 200 MG/2 ML VIAL IVPB SCH (09:53)
[2021-01-19] MEDS: levETIRAcetam 500 MG/5 ML INJECTION VIAL IVPB SCH ×2 (09:53→21:19)
[2021-01-19] MEDS: CHLORHEXIDINE GLUCONATE 4% CLEANSER FOR DECOLONIZATION TP SCH (21:19)
[2021-01-20] MEDS: INSULIN SLIDING SCALE (NOVOLOG) 1 VIAL SQ SCH ×4 (00:59→17:17)
[2021-01-20] MEDS: METOCLOPRAMIDE HCL 10 MG/10 ML UNIT DOSE CUP GT SCH ×4 (02:24→21:32)
[2021-01-20] MEDS: RIFAXIMIN 400 MG/20 ML SUSPENSION NGT SCH ×3 (05:34→21:33)
[2021-01-20] MEDS: NAPH,MB-DB/K PH,MBDB POWDER PACKET GT SCH ×3 (05:34→21:33)
[2021-01-20] MEDS: POTASSIUM CHLORIDE ORAL LIQUID 20 MEQ/15 ML PO SCH ×2 (09:31→21:33)
[2021-01-20] MEDS: levETIRAcetam 500 MG/5 ML INJECTION VIAL IVPB SCH ×2 (09:31→21:33)
[2021-01-20] MEDS: PANTOPRAZOLE SODIUM 40 MG VIAL IVPUSH SCH (09:31)
[2021-01-20] MEDS: MIDODRINE HCL 5 MG TABLET GT SCH ×3 (09:32→17:17)
[2021-01-20] MEDS: AMINO ACIDS/PROTEIN HYDROLYS 30 ML LIQUID.PKT GT SCH (09:32)
[2021-01-20] MEDS: AMIODARONE HCL 200 MG TABLET GT SCH (09:32)
[2021-01-20] MEDS: METOPROLOL TARTRATE 25 MG TABLET (FP) GT SCH ×2 (09:32→21:33)
[2021-01-20] MEDS: THIAMINE HCL 200 MG/2 ML VIAL IVPB SCH (09:32)
[2021-01-20] MEDS ORDERED: PT OWN MED DRAWER 7, Y5N ONE ×2 (14:29→21:30)
[2021-01-20] MEDS: CHLORHEXIDINE GLUCONATE 4% CLEANSER FOR DECOLONIZATION TP SCH (21:33)
[2021-01-21] MEDS: METOCLOPRAMIDE HCL 10 MG/10 ML UNIT DOSE CUP GT SCH ×5 (03:19→23:12)
[2021-01-21] MEDS ORDERED: PT OWN MED DRAWER 7, Y5N ONE ×5 (05:06→21:57)
[2021-01-21] MEDS: RIFAXIMIN 400 MG/20 ML SUSPENSION NGT SCH ×3 (05:16→22:13)
[2021-01-21] MEDS: NAPH,MB-DB/K PH,MBDB POWDER PACKET GT SCH ×3 (05:16→22:13)
[2021-01-21] MEDS: INSULIN SLIDING SCALE (NOVOLOG) 1 VIAL SQ SCH ×4 (06:24→21:31)
[2021-01-21 06:45] LABS: HEMATOCRIT 27.4 % (35.4-49); HEMOGLOBIN 9.2 GM/dL (11.7-16.9); LYMPH % 15.9 % (8-40); MCH 32.8 pg (25.7-33.7); MCHC 33.4 g/dl (32.0-35.9); MEAN CELL VOLUME 98.4 fl (80-96); MEAN PLT VOLUME 9.6 fl (7.5-11.1); MONO % 6.6 % (3.8-10.2); NEUT % 75.5 % (42.8-82.8); PLATELET COUNT 288 10^3/uL (134-434); RBC 2.79 M/mm3 (4.00-5.60); RDW 16.5 % (11.9-15.9); WHITE BLOOD COUNT 11.7 K/mm3 (4.0-10.0)
[2021-01-21 06:53] LABS: ALBUMIN 2.1 g/dl (3.4-5.0)
[2021-01-21 06:55] LABS: CALCIUM 8.1 mg/dL (8.5-10.1)
[2021-01-21 06:57] LABS: BILIRUBIN,TOTAL 0.5 mg/dL (0.2-1); CREATININE 0.2 mg/dL (0.55-1.3)
[2021-01-21 06:58] LABS: TOT PROT 6.4 g/dl (6.4-8.2)
[2021-01-21 06:59] LABS: PHOSPHOROUS 3.5 mg/dL (2.5-4.9)
[2021-01-21] MEDS: MIDODRINE HCL 5 MG TABLET GT SCH ×3 (09:17→17:08)
[2021-01-21] MEDS: POTASSIUM CHLORIDE ORAL LIQUID 20 MEQ/15 ML PO SCH ×2 (09:17→22:13)
[2021-01-21] MEDS: AMIODARONE HCL 200 MG TABLET GT SCH (09:19)
[2021-01-21] MEDS: METOPROLOL TARTRATE 25 MG TABLET (FP) GT SCH ×2 (09:19→21:31)
[2021-01-21] MEDS: THIAMINE HCL 200 MG/2 ML VIAL IVPB SCH (09:19)
[2021-01-21] MEDS: levETIRAcetam 500 MG/5 ML INJECTION VIAL IVPB SCH ×2 (09:19→21:30)
[2021-01-21] MEDS: AMINO ACIDS/PROTEIN HYDROLYS 30 ML LIQUID.PKT GT SCH (09:20)
[2021-01-21] MEDS: PANTOPRAZOLE SODIUM 40 MG VIAL IVPUSH SCH (09:20)
[2021-01-21] MEDS ORDERED: METOCLOPRAMIDE HCL 10 MG/10 ML UNIT DOSE CUP GT SCH (10:00)
[2021-01-21] MEDS ORDERED: METOPROLOL TARTRATE 5 MG/5 ML VIAL IVPUSH PRN (19:01)
[2021-01-21] MEDS ORDERED: LACTULOSE 20 GM/30 ML UDC (FOR ORAL USE ONLY) GT PRN (19:01)
[2021-01-21] MEDS ORDERED: CHLORHEXIDINE GLUCONATE 4% CLEANSER FOR DECOLONIZATION TP SCH (22:00)
[2021-01-22] MEDS: RIFAXIMIN 400 MG/20 ML SUSPENSION NGT SCH ×3 (05:40→22:03)
[2021-01-22] MEDS: METOCLOPRAMIDE HCL 10 MG/10 ML UNIT DOSE CUP GT SCH ×4 (05:40→23:24)
[2021-01-22] MEDS: NAPH,MB-DB/K PH,MBDB POWDER PACKET GT SCH ×3 (05:40→22:02)
[2021-01-22] MEDS: INSULIN SLIDING SCALE (NOVOLOG) 1 VIAL SQ SCH ×4 (06:00→22:22)
[2021-01-22 09:08] LABS: HEMATOCRIT 32.2 % (35.4-49); HEMOGLOBIN 10.5 GM/dL (11.7-16.9); MCH 32.2 pg (25.7-33.7); MCHC 32.5 g/dl (32.0-35.9); MEAN PLT VOLUME 10.4 fl (7.5-11.1); RBC 3.25 M/mm3 (4.00-5.60); RDW 16.2 % (11.9-15.9)
[2021-01-22 09:11] LABS: WHITE BLOOD COUNT 17.6 K/mm3 (4.0-10.0)
[2021-01-22 09:12] LABS: PLATELET COUNT 344 10^3/uL (134-434)
[2021-01-22 09:32] LABS: ALBUMIN 2.4 g/dl (3.4-5.0)
[2021-01-22 09:34] LABS: BLOOD UREA NITROGEN 13.4 mg/dL (7-18)
[2021-01-22 09:35] LABS: CALCIUM 8.6 mg/dL (8.5-10.1); CREATININE 0.3 mg/dL (0.55-1.3); MAGNESIUM 2.1 mg/dL (1.8-2.4)
[2021-01-22 09:36] LABS: BILIRUBIN,TOTAL 0.6 mg/dL (0.2-1); PHOSPHOROUS 3.8 mg/dL (2.5-4.9)
[2021-01-22 09:37] LABS: TOT PROT 7.2 g/dl (6.4-8.2)
[2021-01-22] MEDS: MIDODRINE HCL 5 MG TABLET GT SCH ×3 (10:31→18:05)
[2021-01-22] MEDS: AMIODARONE HCL 200 MG TABLET GT SCH (10:32)
[2021-01-22] MEDS: METOPROLOL TARTRATE 25 MG TABLET (FP) GT SCH ×2 (10:32→22:02)
[2021-01-22] MEDS: THIAMINE HCL 200 MG/2 ML VIAL IVPB SCH (10:33)
[2021-01-22] MEDS: AMINO ACIDS/PROTEIN HYDROLYS 30 ML LIQUID.PKT GT SCH (10:33)
[2021-01-22] MEDS: levETIRAcetam 500 MG/5 ML INJECTION VIAL IVPB SCH ×2 (10:33→22:02)
[2021-01-22] MEDS: POTASSIUM CHLORIDE ORAL LIQUID 20 MEQ/15 ML PO SCH ×2 (10:33→22:02)
[2021-01-22] MEDS: PANTOPRAZOLE SODIUM 40 MG VIAL IVPUSH SCH (11:17)
[2021-01-22] MEDS ORDERED: PT OWN MED DRAWER 7, Y5N ONE ×3 (11:49→21:57)
[2021-01-22 11:50] LABS: ANISOCYTOSIS 1+; MACROCYTOSIS 0; PLATELET ESTIMATE NORMAL
[2021-01-22] MEDS: COLLAGENASE CLOSTRIDIUM HIST. 30 GRAMS TUBE TP SCH (18:05)
[2021-01-22 20:59] LABS: EPI CELLS 2 /uL (0-25.1); HYALINE CASTS 12 /uL (0-3.1); PH,URINE 6.5 (5.0-8.0); URINE APPEARANCE CLOUDY; URINE BACTERIA 505 /uL (0-1359); URINE BILIRUBIN 1+ (NEGATIVE); URINE COLOR DK YELLOW; URINE GLUCOSE (UA) NEGATIVE (NEGATIVE); URINE KETONE NEGATIVE (NEGATIVE); URINE LEUK ESTERASE 2+ (NEGATIVE); URINE NITRITE NEGATIVE (NEGATIVE); URINE PROTEIN 2+ (NEGATIVE); URINE RBC 2922 /uL (0-23.9); URINE UROBILINOGEN 4.0 E.U/dl mg/dL (0.2-1.0); URINE WBC 564 /uL (0-25.8)
[2021-01-22 21:29] LABS: YEAST MODERATE (NEGATIVE)
[2021-01-23] MEDS: METOCLOPRAMIDE HCL 10 MG/10 ML UNIT DOSE CUP GT SCH ×4 (05:04→23:46)
[2021-01-23] MEDS: NAPH,MB-DB/K PH,MBDB POWDER PACKET GT SCH ×3 (05:04→22:04)
[2021-01-23] MEDS: RIFAXIMIN 400 MG/20 ML SUSPENSION NGT SCH ×3 (05:05→22:04)
[2021-01-23] MEDS: INSULIN SLIDING SCALE (NOVOLOG) 1 VIAL SQ SCH ×4 (06:01→23:39)
[2021-01-23 09:50] LABS: BASO % 0.9 % (0-2.0); EOS % 1.4 % (0-4.5); HEMATOCRIT 24.8 % (35.4-49); HEMOGLOBIN 8.2 GM/dL (11.7-16.9); LYMPH % 15.2 % (8-40); MCH 32.2 pg (25.7-33.7); MCHC 32.9 g/dl (32.0-35.9); MEAN CELL VOLUME 97.9 fl (80-96); MEAN PLT VOLUME 10.2 fl (7.5-11.1); MONO % 7.9 % (3.8-10.2); NEUT % 74.6 % (42.8-82.8); PLATELET COUNT 271 10^3/uL (134-434); RBC 2.54 M/mm3 (4.00-5.60); RDW 15.7 % (11.9-15.9); WHITE BLOOD COUNT 10.6 K/mm3 (4.0-10.0)
[2021-01-23 10:10] LABS: BLOOD UREA NITROGEN 12.8 mg/dL (7-18); CALCIUM 8.4 mg/dL (8.5-10.1)
[2021-01-23 10:13] LABS: CREATININE 0.3 mg/dL (0.55-1.3); PHOSPHOROUS 3.6 mg/dL (2.5-4.9)
[2021-01-23 10:15] LABS: BILIRUBIN,TOTAL 0.4 mg/dL (0.2-1)
[2021-01-23] MEDS: POTASSIUM CHLORIDE ORAL LIQUID 20 MEQ/15 ML PO SCH ×2 (11:04→22:04)
[2021-01-23] MEDS: MIDODRINE HCL 5 MG TABLET GT SCH ×3 (11:04→17:50)
[2021-01-23] MEDS: AMIODARONE HCL 200 MG TABLET GT SCH (11:06)
[2021-01-23] MEDS: PANTOPRAZOLE SODIUM 40 MG VIAL IVPUSH SCH (11:06)
[2021-01-23] MEDS: AMINO ACIDS/PROTEIN HYDROLYS 30 ML LIQUID.PKT GT SCH (11:06)
[2021-01-23] MEDS: levETIRAcetam 500 MG/5 ML INJECTION VIAL IVPB SCH ×2 (11:06→21:03)
[2021-01-23] MEDS: THIAMINE HCL 200 MG/2 ML VIAL IVPB SCH (11:22)
[2021-01-23] MEDS: COLLAGENASE CLOSTRIDIUM HIST. 30 GRAMS TUBE TP SCH (11:29)
[2021-01-23] MEDS: METOPROLOL TARTRATE 25 MG TABLET (FP) GT SCH ×2 (15:33→22:04)
[2021-01-23] MEDS: ACETAMINOPHEN 650 MG/20.3 ML ORAL SOLUTION (CUPS) PO PRN (20:31)
[2021-01-23] MEDS ORDERED: PT OWN MED DRAWER 7, Y5N ONE (22:03)
[2021-01-24] MEDS: NAPH,MB-DB/K PH,MBDB POWDER PACKET GT SCH ×3 (05:19→21:12)
[2021-01-24] MEDS: METOCLOPRAMIDE HCL 10 MG/10 ML UNIT DOSE CUP GT SCH ×3 (05:19→21:12)
[2021-01-24] MEDS: METOPROLOL TARTRATE 25 MG TABLET (FP) GT SCH ×3 (05:19→21:12)
[2021-01-24] MEDS: RIFAXIMIN 400 MG/20 ML SUSPENSION NGT SCH ×3 (05:19→21:12)
[2021-01-24] MEDS: INSULIN SLIDING SCALE (NOVOLOG) 1 VIAL SQ SCH ×4 (06:01→21:12)
[2021-01-24 09:30] LABS: BASO % 0.9 % (0-2.0); EOS % 1.3 % (0-4.5); HEMATOCRIT 30.3 % (35.4-49); HEMOGLOBIN 9.6 GM/dL (11.7-16.9); LYMPH % 18.2 % (8-40); MCHC 31.6 g/dl (32.0-35.9); MEAN CELL VOLUME 98.2 fl (80-96); MEAN PLT VOLUME 10.7 fl (7.5-11.1); MONO % 6.1 % (3.8-10.2); NEUT % 73.5 % (42.8-82.8); PLATELET COUNT 282 10^3/uL (134-434); RBC 3.08 M/mm3 (4.00-5.60); WHITE BLOOD COUNT 10.9 K/mm3 (4.0-10.0)
[2021-01-24] MEDS: POTASSIUM CHLORIDE ORAL LIQUID 20 MEQ/15 ML PO SCH (09:34)
[2021-01-24] MEDS: PANTOPRAZOLE SODIUM 40 MG VIAL IVPUSH SCH (09:35)
[2021-01-24] MEDS: AMINO ACIDS/PROTEIN HYDROLYS 30 ML LIQUID.PKT GT SCH (09:35)
[2021-01-24] MEDS: AMIODARONE HCL 200 MG TABLET GT SCH (09:35)
[2021-01-24] MEDS: MIDODRINE HCL 5 MG TABLET GT SCH ×3 (09:35→18:00)
[2021-01-24] MEDS: THIAMINE HCL 200 MG/2 ML VIAL IVPB SCH (09:41)
[2021-01-24 09:48] LABS: ALBUMIN 2.1 g/dl (3.4-5.0)
[2021-01-24 09:49] LABS: BLOOD UREA NITROGEN 12.5 mg/dL (7-18); CALCIUM 8.3 mg/dL (8.5-10.1)
[2021-01-24 09:50] LABS: MAGNESIUM 2.1 mg/dL (1.8-2.4)
[2021-01-24 09:52] LABS: CREATININE 0.3 mg/dL (0.55-1.3); PHOSPHOROUS 3.8 mg/dL (2.5-4.9)
[2021-01-24 09:54] LABS: BILIRUBIN,TOTAL 0.5 mg/dL (0.2-1); TOT PROT 6.4 g/dl (6.4-8.2)
[2021-01-24] MEDS: COLLAGENASE CLOSTRIDIUM HIST. 30 GRAMS TUBE TP SCH (11:54)
[2021-01-24] MEDS: levETIRAcetam 500 MG/5 ML INJECTION VIAL IVPB SCH (11:54)
[2021-01-24] MEDS ORDERED: PT OWN MED DRAWER 7, Y5N ONE (21:05)
[2021-01-24] MEDS: levETIRAcetam 500 MG/5 ML ORAL SOLUTION (UNIT-DOSE CUPS) GT SCH (21:12)
[2021-01-25] MEDS: METOCLOPRAMIDE HCL 10 MG/10 ML UNIT DOSE CUP GT SCH ×3 (05:31→21:04)
[2021-01-25] MEDS ORDERED: PT OWN MED DRAWER 7, Y5N ONE ×4 (05:31→20:58)
[2021-01-25] MEDS: METOPROLOL TARTRATE 25 MG TABLET (FP) GT SCH ×3 (05:32→21:04)
[2021-01-25] MEDS: RIFAXIMIN 400 MG/20 ML SUSPENSION NGT SCH ×3 (05:32→21:04)
[2021-01-25] MEDS: INSULIN SLIDING SCALE (NOVOLOG) 1 VIAL SQ SCH ×4 (06:33→21:04)
[2021-01-25 08:47] LABS: HEMATOCRIT 27.7 % (35.4-49); MCH 31.9 pg (25.7-33.7); MCHC 32.6 g/dl (32.0-35.9); MEAN CELL VOLUME 97.8 fl (80-96); MEAN PLT VOLUME 10.2 fl (7.5-11.1); PLATELET COUNT 261 10^3/uL (134-434); RBC 2.83 M/mm3 (4.00-5.60); RDW 16.2 % (11.9-15.9)
[2021-01-25 09:00] LABS: WHITE BLOOD COUNT 15.2 K/mm3 (4.0-10.0)
[2021-01-25 09:14] LABS: BLOOD UREA NITROGEN 12.3 mg/dL (7-18); CALCIUM 8.2 mg/dL (8.5-10.1)
[2021-01-25 09:15] LABS: ALBUMIN 2.1 g/dl (3.4-5.0)
[2021-01-25 09:16] LABS: MAGNESIUM 1.9 mg/dL (1.8-2.4)
[2021-01-25 09:17] LABS: CREATININE 0.4 mg/dL (0.55-1.3)
[2021-01-25 09:18] LABS: BILIRUBIN,TOTAL 0.4 mg/dL (0.2-1); PHOSPHOROUS 3.4 mg/dL (2.5-4.9)
[2021-01-25 09:19] LABS: TOT PROT 6.5 g/dl (6.4-8.2)
[2021-01-25] MEDS ORDERED: POTASSIUM CHLORIDE ORAL LIQUID 20 MEQ/15 ML PO SCH (10:00)
[2021-01-25] MEDS: MIDODRINE HCL 5 MG TABLET GT SCH ×3 (10:28→17:22)
[2021-01-25] MEDS: NAPH,MB-DB/K PH,MBDB POWDER PACKET GT SCH ×2 (10:29→21:04)
[2021-01-25] MEDS: AMINO ACIDS/PROTEIN HYDROLYS 30 ML LIQUID.PKT GT SCH (10:29)
[2021-01-25] MEDS: THIAMINE HCL 200 MG/2 ML VIAL IVPB SCH (10:29)
[2021-01-25] MEDS: AMIODARONE HCL 200 MG TABLET GT SCH (10:29)
[2021-01-25] MEDS: levETIRAcetam 500 MG/5 ML ORAL SOLUTION (UNIT-DOSE CUPS) GT SCH ×2 (10:29→21:05)
[2021-01-25] MEDS: FAMOTIDINE 40 MG/5 ML ORAL SUSPENSION PEG SCH (10:30)
[2021-01-25] MEDS: COLLAGENASE CLOSTRIDIUM HIST. 30 GRAMS TUBE TP SCH (10:30)
[2021-01-25 11:55] LABS: ANISOCYTOSIS 0; MACROCYTOSIS 1+; PLATELET ESTIMATE NORMAL
[2021-01-25] MEDS ORDERED: GENTAMICIN INJECTION 90 MG in DEXTROSE 5%-WATER - 250 ML IVPB ONE (17:30)
[2021-01-26] MEDS: METOCLOPRAMIDE HCL 10 MG/10 ML UNIT DOSE CUP GT SCH ×3 (05:16→21:30)
[2021-01-26] MEDS: RIFAXIMIN 400 MG/20 ML SUSPENSION NGT SCH ×3 (05:16→21:29)
[2021-01-26] MEDS: METOPROLOL TARTRATE 25 MG TABLET (FP) GT SCH ×3 (05:16→21:30)
[2021-01-26] MEDS: INSULIN SLIDING SCALE (NOVOLOG) 1 VIAL SQ SCH ×4 (06:08→21:30)
[2021-01-26 09:15] LABS: BASO % 0.8 % (0-2.0); EOS % 1.7 % (0-4.5); HEMATOCRIT 27.2 % (35.4-49); HEMOGLOBIN 9.1 GM/dL (11.7-16.9); LYMPH % 16.6 % (8-40); MCH 32.2 pg (25.7-33.7); MCHC 33.6 g/dl (32.0-35.9); MEAN CELL VOLUME 95.6 fl (80-96); MEAN PLT VOLUME 9.9 fl (7.5-11.1); MONO % 9.3 % (3.8-10.2); NEUT % 71.6 % (42.8-82.8); PLATELET COUNT 248 10^3/uL (134-434); RBC 2.85 M/mm3 (4.00-5.60); RDW 15.7 % (11.9-15.9); WHITE BLOOD COUNT 9.3 K/mm3 (4.0-10.0)
[2021-01-26 10:06] LABS: CALCIUM 8.2 mg/dL (8.5-10.1)
[2021-01-26 10:07] LABS: BLOOD UREA NITROGEN 12.1 mg/dL (7-18)
[2021-01-26] MEDS ORDERED: PT OWN MED DRAWER 7, Y5N ONE ×3 (10:10→21:20)
[2021-01-26 10:11] LABS: BILIRUBIN,TOTAL 0.4 mg/dL (0.2-1); TOT PROT 6.2 g/dl (6.4-8.2)
[2021-01-26 10:13] LABS: CREATININE 0.3 mg/dL (0.55-1.3)
[2021-01-26] MEDS: MIDODRINE HCL 5 MG TABLET GT SCH ×3 (10:16→17:11)
[2021-01-26] MEDS: levETIRAcetam 500 MG/5 ML ORAL SOLUTION (UNIT-DOSE CUPS) GT SCH ×2 (10:16→21:30)
[2021-01-26] MEDS: AMINO ACIDS/PROTEIN HYDROLYS 30 ML LIQUID.PKT GT SCH (10:16)
[2021-01-26] MEDS: FAMOTIDINE 40 MG/5 ML ORAL SUSPENSION PEG SCH (10:16)
[2021-01-26] MEDS: THIAMINE HCL 200 MG/2 ML VIAL IVPB SCH (10:16)
[2021-01-26] MEDS: NAPH,MB-DB/K PH,MBDB POWDER PACKET GT SCH ×2 (10:16→21:29)
[2021-01-26] MEDS: AMIODARONE HCL 200 MG TABLET GT SCH (10:16)
[2021-01-26] MEDS: COLLAGENASE CLOSTRIDIUM HIST. 30 GRAMS TUBE TP SCH (10:16)
[2021-01-26] MEDS: ACETAMINOPHEN 650 MG/20.3 ML ORAL SOLUTION (CUPS) PO PRN (15:49)
[2021-01-26] MEDS ORDERED: GENTAMICIN INJECTION 90 MG in SODIUM CHLORIDE 100 ML IVPB SCH (22:30)
[2021-01-26] MEDS ORDERED: GENTAMICIN INJECTION 90 MG in SODIUM CHLORIDE 100 ML IVPB ONE (22:53)
[2021-01-27] MEDS: RIFAXIMIN 400 MG/20 ML SUSPENSION NGT SCH ×3 (05:04→22:00)
[2021-01-27] MEDS: METOPROLOL TARTRATE 25 MG TABLET (FP) GT SCH ×3 (05:04→22:00)
[2021-01-27] MEDS: METOCLOPRAMIDE HCL 10 MG/10 ML UNIT DOSE CUP GT SCH ×3 (05:04→22:00)
[2021-01-27] MEDS: INSULIN SLIDING SCALE (NOVOLOG) 1 VIAL SQ SCH ×4 (06:09→21:55)
[2021-01-27 09:26] LABS: BASO % 0.6 % (0-2.0); EOS % 1.3 % (0-4.5); HEMATOCRIT 24.8 % (35.4-49); HEMOGLOBIN 8.2 GM/dL (11.7-16.9); LYMPH % 14.3 % (8-40); MCH 31.5 pg (25.7-33.7); MEAN CELL VOLUME 95.3 fl (80-96); MEAN PLT VOLUME 10.7 fl (7.5-11.1); MONO % 7.5 % (3.8-10.2); NEUT % 76.3 % (42.8-82.8); PLATELET COUNT 254 10^3/uL (134-434); RDW 15.5 % (11.9-15.9); WHITE BLOOD COUNT 13.6 K/mm3 (4.0-10.0)
[2021-01-27] MEDS ORDERED: PT OWN MED DRAWER 7, Y5N ONE ×3 (09:27→21:58)
[2021-01-27] MEDS: levETIRAcetam 500 MG/5 ML ORAL SOLUTION (UNIT-DOSE CUPS) GT SCH ×2 (09:32→22:00)
[2021-01-27] MEDS: MIDODRINE HCL 5 MG TABLET GT SCH ×3 (09:32→18:19)
[2021-01-27] MEDS: NAPH,MB-DB/K PH,MBDB POWDER PACKET GT SCH ×2 (09:32→22:00)
[2021-01-27] MEDS: AMIODARONE HCL 200 MG TABLET GT SCH (09:32)
[2021-01-27] MEDS: THIAMINE HCL 200 MG/2 ML VIAL IVPB SCH (09:34)
[2021-01-27] MEDS: ACETAMINOPHEN 650 MG/20.3 ML ORAL SOLUTION (CUPS) PO PRN ×2 (09:35→18:19)
[2021-01-27] MEDS: FAMOTIDINE 40 MG/5 ML ORAL SUSPENSION PEG SCH (09:35)
[2021-01-27] MEDS: AMINO ACIDS/PROTEIN HYDROLYS 30 ML LIQUID.PKT GT SCH (09:35)
[2021-01-27 10:13] LABS: CALCIUM 8.2 mg/dL (8.5-10.1)
[2021-01-27 10:14] LABS: BLOOD UREA NITROGEN 12.5 mg/dL (7-18)
[2021-01-27 10:16] LABS: BILIRUBIN,TOTAL 0.3 mg/dL (0.2-1); TOT PROT 6.3 g/dl (6.4-8.2)
[2021-01-27 10:17] LABS: CREATININE 0.3 mg/dL (0.55-1.3); PHOSPHOROUS 3.8 mg/dL (2.5-4.9)
[2021-01-27 10:24] LABS: PLATELET ESTIMATE NORMAL
[2021-01-27] MEDS: COLLAGENASE CLOSTRIDIUM HIST. 30 GRAMS TUBE TP SCH (11:38)
[2021-01-27] MEDS ORDERED: GENTAMICIN INJECTION 90 MG in SODIUM CHLORIDE 100 ML IVPB SCH (19:15)
[2021-01-28] MEDS: METOPROLOL TARTRATE 25 MG TABLET (FP) GT SCH ×2 (05:10→13:18)
[2021-01-28] MEDS: RIFAXIMIN 400 MG/20 ML SUSPENSION NGT SCH ×2 (05:10→13:19)
[2021-01-28] MEDS: METOCLOPRAMIDE HCL 10 MG/10 ML UNIT DOSE CUP GT SCH ×2 (05:10→13:18)
[2021-01-28] MEDS: ACETAMINOPHEN 650 MG/20.3 ML ORAL SOLUTION (CUPS) PO PRN (05:14)
[2021-01-28] MEDS: INSULIN SLIDING SCALE (NOVOLOG) 1 VIAL SQ SCH ×3 (06:04→16:38)
[2021-01-28] MEDS ORDERED: SODIUM CHLORIDE 250 ML IV STA (08:32)
[2021-01-28 09:24] LABS: BASO % 0.7 % (0-2.0); EOS % 0.5 % (0-4.5); HEMATOCRIT 23.5 % (35.4-49); HEMOGLOBIN 7.7 GM/dL (11.7-16.9); LYMPH % 10.1 % (8-40); MCH 31.3 pg (25.7-33.7); MCHC 32.9 g/dl (32.0-35.9); MEAN CELL VOLUME 94.9 fl (80-96); MEAN PLT VOLUME 10.5 fl (7.5-11.1); MONO % 8.3 % (3.8-10.2); NEUT % 80.4 % (42.8-82.8); PLATELET COUNT 273 10^3/uL (134-434); RBC 2.47 M/mm3 (4.00-5.60); RDW 15.8 % (11.9-15.9)
[2021-01-28] MEDS ORDERED: PT OWN MED DRAWER 7, Y5N ONE ×2 (10:08→13:15)
[2021-01-28 10:12] VITALS: TEMP 99.3
[2021-01-28] MEDS: levETIRAcetam 500 MG/5 ML ORAL SOLUTION (UNIT-DOSE CUPS) GT SCH (10:19)
[2021-01-28] MEDS: AMINO ACIDS/PROTEIN HYDROLYS 30 ML LIQUID.PKT GT SCH (10:19)
[2021-01-28] MEDS: NAPH,MB-DB/K PH,MBDB POWDER PACKET GT SCH (10:19)
[2021-01-28] MEDS: MIDODRINE HCL 5 MG TABLET GT SCH ×3 (10:19→17:58)
[2021-01-28] MEDS: AMIODARONE HCL 200 MG TABLET GT SCH (10:19)
[2021-01-28] MEDS: FAMOTIDINE 40 MG/5 ML ORAL SUSPENSION PEG SCH (10:20)
[2021-01-28 10:51] LABS: BLOOD UREA NITROGEN 23.8 mg/dL (7-18); CALCIUM 8.4 mg/dL (8.5-10.1); MAGNESIUM 2.3 mg/dL (1.8-2.4)
[2021-01-28 10:54] LABS: CREATININE 0.6 mg/dL (0.55-1.3); PHOSPHOROUS 5.9 mg/dL (2.5-4.9)
[2021-01-28 10:56] LABS: BILIRUBIN,TOTAL 0.3 mg/dL (0.2-1); TOT PROT 6.2 g/dl (6.4-8.2)
[2021-01-28] MEDS: COLLAGENASE CLOSTRIDIUM HIST. 30 GRAMS TUBE TP SCH (11:30)
[2021-01-28] MEDS: THIAMINE HCL 200 MG/2 ML VIAL IVPB SCH (12:11)
[2021-01-28 13:11] VITALS: BP 120/63; PULSE 88
== END 2021-01-28 18:26 | DRG 4 ==
LOC: JER 14:28 → JERBED 18:39 → J6S 23:57 → J4W 12-11 09:35 → JICU 12-11 14:26 → J5S 01-21 18:44
PROVIDERS: ADMIT Internal Medicine; ATTEND Internal Medicine
PROC: 5A1955Z Respiratory Ventilation, Greater than 96 Consecutive Hours (ICD-10-PCS; 2020-12-12)
PROC: 0BH17EZ Insertion of Endotracheal Airway into Trachea, Via Natural or Artificial Opening (ICD-10-PCS; 2020-12-12)
PROC: 4A133J1 Monitoring of Arterial Pulse, Peripheral, Percutaneous Approach (ICD-10-PCS; 2020-12-13)
PROC: 4A133B1 Monitoring of Arterial Pressure, Peripheral, Percutaneous Approach (ICD-10-PCS; 2020-12-13)
PROC: 05HM33Z Insertion of Infusion Device into Right Internal Jugular Vein, Percutaneous Approach (ICD-10-PCS; 2020-12-24)
PROC: B543ZZA Ultrasonography of Right Jugular Veins, Guidance (ICD-10-PCS; 2020-12-24)
PROC: 05HN33Z Insertion of Infusion Device into Left Internal Jugular Vein, Percutaneous Approach (ICD-10-PCS; 2021-01-02)
PROC: B544ZZA Ultrasonography of Left Jugular Veins, Guidance (ICD-10-PCS; 2021-01-02)
PROC: 30233N1 Transfusion of Nonautologous Red Blood Cells into Peripheral Vein, Percutaneous Approach (ICD-10-PCS; 2021-01-02)
PROC: 05HN33Z Insertion of Infusion Device into Left Internal Jugular Vein, Percutaneous Approach (ICD-10-PCS; 2021-01-03)
PROC: B544ZZA Ultrasonography of Left Jugular Veins, Guidance (ICD-10-PCS; 2021-01-03)
PROC: 05HN33Z Insertion of Infusion Device into Left Internal Jugular Vein, Percutaneous Approach (ICD-10-PCS; 2021-01-06)
PROC: B544ZZA Ultrasonography of Left Jugular Veins, Guidance (ICD-10-PCS; 2021-01-06)
PROC: 0BJ08ZZ Inspection of Tracheobronchial Tree, Via Natural or Artificial Opening Endoscopic (ICD-10-PCS; 2021-01-07)
PROC: 0B113F4 Bypass Trachea to Cutaneous with Tracheostomy Device, Percutaneous Approach (ICD-10-PCS; principal; 2021-01-07 10:00)
PROC: 0DH63UZ Insertion of Feeding Device into Stomach, Percutaneous Approach (ICD-10-PCS; 2021-01-15)
PROC: BD12YZZ Fluoroscopy of Stomach using Other Contrast (ICD-10-PCS; 2021-01-15)
DX: K72.90 Hepatic failure, unspecified without coma (principal); J69.0 Pneumonitis due to inhalation of food and vomit; A41.9 Sepsis, unspecified organism; I21.4 Non-ST elevation (NSTEMI) myocardial infarction; I50.31 Acute diastolic (congestive) heart failure; R65.21 Severe sepsis with septic shock; J96.01 Acute respiratory failure with hypoxia; F10.239 Alcohol dependence with withdrawal, unspecified; N39.0 Urinary tract infection, site not specified; N17.9 Acute kidney failure, unspecified; I47.1 Supraventricular tachycardia; E87.2 Acidosis; E87.1 Hypo-osmolality and hyponatremia; E87.0 Hyperosmolality and hypernatremia; K56.609 Unspecified intestinal obstruction, unspecified as to partial versus complete obstruction; I24.8 Other forms of acute ischemic heart disease; R18.8 Other ascites; K56.7 Ileus, unspecified; E83.39 Other disorders of phosphorus metabolism; E03.9 Hypothyroidism, unspecified; E88.09 Other disorders of plasma-protein metabolism, not elsewhere classified; R63.4 Abnormal weight loss; D69.6 Thrombocytopenia, unspecified; D72.829 Elevated white blood cell count, unspecified; K21.9 Gastro-esophageal reflux disease without esophagitis; I48.91 Unspecified atrial fibrillation; D64.9 Anemia, unspecified; E78.5 Hyperlipidemia, unspecified; F41.9 Anxiety disorder, unspecified; E87.70 Fluid overload, unspecified; R41.82 Altered mental status, unspecified; E11.9 Type 2 diabetes mellitus without complications; R31.0 Gross hematuria; B96.1 Klebsiella pneumoniae [K. pneumoniae] as the cause of diseases classified elsewhere; R19.7 Diarrhea, unspecified; Z85.46 Personal history of malignant neoplasm of prostate; I95.9 Hypotension, unspecified
CPT/HCPCS: 31500; 36415; 36430; 36511; 36600; 49440; 70450-TC; 71045-TC-FY; 71250-TC; 74018-TC-FY; 74176-TC; 74178-TC; 76705-TC; 76870-TC; 80048; 80053; 80061; 80307; 81003; 82105; 82140; 82248; 82272; 82306; 82436; 82533; 82550; 82553; 82570; 82607; 82746; 82803; 82962; 83036; 83516; 83540; 83550; 83605; 83690; 83721; 83735; 83880; 84100; 84132; 84133; 84146; 84153; 84156; 84300; 84436; 84439; 84443; 84484; 85025; 85027; 85610; 85730; 86038; 86140; 86704; 86706; 86707; 86708; 86709; 86803; 86850; 86900; 86901; 86922; 87040; 87070; 87077; 87086; 87186; 87205; 87324; 87340; 87449; 87899; 93005; 93010; 93306-TC; 93971; 94002; 94640; 94660; 99285-25; C9803; G0480; J0131; J0282; J1644; P9038; P9047; P9058; Q9967; U0003; U0005

== ENCOUNTER 2021-04-11 00:25 | Emergency (ER) | payer OTHER ==
[2021-04-11 00:43] VITALS: TEMP 98.2; BMI 26.1
[2021-04-11 03:06] VITALS: BP 125/63; PULSE 99
== END 2021-04-11 03:20 | disposition short-term general hospital (02) ==
LOC: JER 00:25
DX: J95.00 Unspecified tracheostomy complication (principal)
CPT/HCPCS: 99283-25

== ENCOUNTER 2021-04-29 05:42 | Emergency (ER) | payer OTHER ==
[2021-04-29 05:50] VITALS: BMI 16.9
[2021-04-29] MEDS ORDERED: DEXAMETHASONE SOD PHOSPHATE 4 MG/1 ML VIAL IVPUSH ONE (05:50)
[2021-04-29] MEDS ORDERED: RACEPINEPHRINE IH SOL 2.25% 11.25 MG/0.5 ML VIAL IH ONE (05:50)
[2021-04-29] MEDS ORDERED: methylPREDNISolone NA SUCC 125 MG/2 ML VIAL IVPB ONE (05:51)
[2021-04-29] MEDS ORDERED: RACEPINEPHRINE IH SOL 2.25% 11.25 MG/0.5 ML VIAL NEB ONE ×2 (05:53→05:56)
[2021-04-29] MEDS ORDERED: methylPREDNISolone NA SUCC 125 MG/2 ML VIAL ONE (05:55)
[2021-04-29 06:23] VITALS: TEMP 98.3
[2021-04-29] MEDS ORDERED: VANCOMYCIN 1 GM in D5W (PRE-DOCKED) 1,000 MG/250 ML IVPB ONE (06:43)
[2021-04-29] MEDS ORDERED: PIPERACILLIN/TAZOB 4.5 GM 4.5 GM in DEXTROSE 5%-WATER 100 ML IVPB ONE (06:43)
[2021-04-29 06:51] LABS: HEMATOCRIT 27.1 % (35.4-49); HEMOGLOBIN 8.6 GM/dL (11.7-16.9); MCH 24.6 pg (25.7-33.7); MCHC 31.9 g/dl (32.0-35.9); MEAN CELL VOLUME 77.1 fl (80-96); MEAN PLT VOLUME 9.5 fl (7.5-11.1); PLATELET COUNT 305 10^3/uL (134-434); RBC 3.52 M/mm3 (4.00-5.60); RDW 20.2 % (11.9-15.9); WHITE BLOOD COUNT 13.6 K/mm3 (4.0-10.0)
[2021-04-29] MEDS ORDERED: PIPERACILLIN/TAZOB 4.5 GM 4.5 GM/100 ML BAG IVPB ONE (06:55)
[2021-04-29 07:01] LABS: INR 1.08 (0.83-1.09); PROTHROMBIN TIME (PATIENT) 13.3 SEC (9.7-13.0)
[2021-04-29 07:04] LABS: ACTIVATED PTT 35.9 SECONDS (25.2-36.5)
[2021-04-29 07:10] LABS: CHLORIDE 96 mmol/L (98-107); SODIUM 134 mmol/L (136-145)
[2021-04-29 07:13] LABS: ALBUMIN 2.5 g/dl (3.4-5.0); ANION GAP 9 MMOL/L (8-16); CALCIUM 9.6 mg/dL (8.5-10.1); CO2 30 mmol/L (21-32)
[2021-04-29 07:14] LABS: BLOOD UREA NITROGEN 16.3 mg/dL (7-18); GLUCOSE,RANDOM 223 mg/dL (74-106)
[2021-04-29 07:16] LABS: SGPT/ALT 17 U/L (13-61)
[2021-04-29 07:17] LABS: CREATININE 0.7 mg/dL (0.55-1.3); SGOT/AST 30 U/L (15-37)
[2021-04-29 07:18] LABS: BILIRUBIN,TOTAL 0.2 mg/dL (0.2-1); TOT PROT 7.8 g/dl (6.4-8.2)
[2021-04-29 07:20] LABS: ALK PHOS 125 U/L (45-117)
[2021-04-29 07:33] LABS: VENOUS BASE EXCESS 5.1 mmol/L (-2-2); VENOUS O2 SATURATION 93.2 % (70-80); VENOUS PCO2 60.5 mmHg (38-52); VENOUS PH 7.341 (7.310-7.410)
[2021-04-29] MEDS ORDERED: VANCOMYCIN 1 GRAM (PRE-DOCKED) 1,000 MG/250 ML BAG IVPB ONE (07:41)
[2021-04-29 08:11] VITALS: BP 110/66; PULSE 97
[2021-04-29 09:57] LABS: ANISOCYTOSIS 0; MACROCYTOSIS 1+; PLATELET ESTIMATE NORMAL
== END 2021-04-29 08:11 | disposition short-term general hospital (02) ==
LOC: JER 05:42
PROC: 3E033GC Introduction of Other Therapeutic Substance into Peripheral Vein, Percutaneous Approach (ICD-10-PCS; principal; 2021-04-29)
PROC: 3E03329 Introduction of Other Anti-infective into Peripheral Vein, Percutaneous Approach (ICD-10-PCS; 2021-04-29)
PROC: 3E03329 Introduction of Other Anti-infective into Peripheral Vein, Percutaneous Approach (ICD-10-PCS; 2021-04-29)
DX: R06.1 Stridor (principal); R06.03 Acute respiratory distress; J18.9 Pneumonia, unspecified organism
CPT/HCPCS: 36415; 70490-TC; 71250-TC; 80053; 82803; 83605; 84484; 85025; 85610; 85730; 86850; 86900; 86901; 87040; 93005; 93010; 99285-25; C9803; U0003; U0005

== ENCOUNTER 2021-05-31 18:28 | Inpatient (IN) | payer OTHER ==
[2021-05-31] MEDS ORDERED: SODIUM CHLORIDE 1,633 ML IV ONE (18:37)
[2021-05-31 19:16] LABS: VENOUS BASE EXCESS -2.1 mmol/L (-2-2); VENOUS O2 SATURATION 45.6 % (70-80)
[2021-05-31 19:18] LABS: BASO % 0.4 % (0-2.0); EOS % 0.1 % (0-4.5); HEMATOCRIT 31.5 % (35.4-49); HEMOGLOBIN 9.9 GM/dL (11.7-16.9); MCHC 31.3 g/dl (32.0-35.9); MEAN CELL VOLUME 79.7 fl (80-96); MEAN PLT VOLUME 10.4 fl (7.5-11.1); MONO % 5.4 % (3.8-10.2); NEUT % 87.1 % (42.8-82.8); PLATELET COUNT 288 10^3/uL (134-434); RBC 3.95 M/mm3 (4.00-5.60); RDW 20.6 % (11.9-15.9); WHITE BLOOD COUNT 12.9 K/mm3 (4.0-10.0)
[2021-05-31 19:24] LABS: VENOUS PCO2 70.8 mmHg (38-52); VENOUS PH 7.198 (7.310-7.410)
[2021-05-31 19:25] LABS: INR 1.03 (0.83-1.09); PROTHROMBIN TIME (PATIENT) 12.1 SEC (9.7-13.0)
[2021-05-31 19:28] LABS: ACTIVATED PTT 34.5 SECONDS (25.2-36.5)
[2021-05-31 19:48] LABS: CHLORIDE 104 mmol/L (98-107); SODIUM 140 mmol/L (136-145)
[2021-05-31 19:50] LABS: ALBUMIN 3.1 g/dl (3.4-5.0); ANION GAP 8 MMOL/L (8-16); CALCIUM 9.7 mg/dL (8.5-10.1); CO2 28 mmol/L (21-32); GLUCOSE,RANDOM 294 mg/dL (74-106); MAGNESIUM 2.5 mg/dL (1.8-2.4)
[2021-05-31 19:53] LABS: CREATININE 0.9 mg/dL (0.55-1.3); SGOT/AST 25 U/L (15-37); SGPT/ALT 15 U/L (13-61)
[2021-05-31] MEDS ORDERED: LACTATED RINGERS SOLUTION 1000 ML INFUS.BAG IV ONE (19:54)
[2021-05-31] MEDS ORDERED: PIPERACILLIN/TAZOB 4.5 GM 4.5 GM in DEXTROSE 5%-WATER 100 ML IVPB ONE (19:54)
[2021-05-31] MEDS ORDERED: VANCOMYCIN 1 GM in D5W (PRE-DOCKED) 1,000 MG/250 ML IVPB ONE (19:54)
[2021-05-31 19:55] LABS: BILIRUBIN,TOTAL 0.2 mg/dL (0.2-1); TOT PROT 7.7 g/dl (6.4-8.2)
[2021-05-31 19:56] LABS: ALK PHOS 85 U/L (45-117)
[2021-05-31 20:46] LABS: ANISOCYTOSIS 1+; MACROCYTOSIS 1+; PLATELET ESTIMATE NORMAL
[2021-05-31] MEDS ORDERED: PIPERACILLIN/TAZOB 4.5 GM 4.5 GM/100 ML BAG IVPB ONE (21:18)
[2021-05-31] MEDS ORDERED: VANCOMYCIN 1 GRAM (PRE-DOCKED) 1,000 MG/250 ML BAG IVPB ONE (21:19)
[2021-05-31 21:52] LABS: EPI CELLS 21 /uL (0-25.1); HYALINE CASTS 1 /uL (0-3.1); PH,URINE 8.5 (5.0-8.0); URINE APPEARANCE CLEAR; URINE BACTERIA 10 /uL (0-1359); URINE BILIRUBIN NEGATIVE (NEGATIVE); URINE COLOR YELLOW; URINE GLUCOSE (UA) NEGATIVE (NEGATIVE); URINE KETONE NEGATIVE (NEGATIVE); URINE LEUK ESTERASE TRACE (NEGATIVE); URINE NITRITE NEGATIVE (NEGATIVE); URINE PROTEIN NEGATIVE (NEGATIVE); URINE RBC 122 /uL (0-23.9); URINE WBC 56 /uL (0-25.8)
[2021-06-01] MEDS ORDERED: PIPERACILLIN/TAZOBACTAM 4.5 GM VIAL IVPB ONE ×2 (03:10→10:11)
[2021-06-01] MEDS ORDERED: DEXTROSE 5%-WATER 100 ML IVPB ONE ×2 (03:10→10:11)
[2021-06-01] MEDS: PIPERACILLIN/TAZOB 4.5 GM 4.5 GM in DEXTROSE 5%-WATER 100 ML IVPB SCH ×2 (03:21→11:06)
[2021-06-01] MEDS ORDERED: PNEUMOC 13-VAL CONJ-DIP CRM/PF 0.5 ML DISP.SYRIN IM ONE (05:20)
[2021-06-01] MEDS: ALBUTEROL SO4 2.5/IPRATROPIUM 0.5 INH SOL 3 ML VIAL.NEB. NEB SCH ×4 (07:15→20:09)
[2021-06-01] MEDS ORDERED: ALBUTEROL SO4 2.5/IPRATROPIUM 0.5 INH SOL 3 ML VIAL.NEB. NEB SCH (08:00)
[2021-06-01 08:49] LABS: EOS % 0.4 % (0-4.5); HEMATOCRIT 24.5 % (35.4-49); LYMPH % 23.9 % (8-40); MCH 25.6 pg (25.7-33.7); MCHC 32.7 g/dl (32.0-35.9); MEAN CELL VOLUME 78.4 fl (80-96); MEAN PLT VOLUME 9.7 fl (7.5-11.1); MONO % 9.7 % (3.8-10.2); PLATELET COUNT 201 10^3/uL (134-434); RBC 3.12 M/mm3 (4.00-5.60); RDW 19.9 % (11.9-15.9); WHITE BLOOD COUNT 5.6 K/mm3 (4.0-10.0)
[2021-06-01 09:43] LABS: CALCIUM 8.7 mg/dL (8.5-10.1)
[2021-06-01 09:44] LABS: BLOOD UREA NITROGEN 12.7 mg/dL (7-18)
[2021-06-01 09:47] LABS: CREATININE 0.6 mg/dL (0.55-1.3)
[2021-06-01] MEDS ORDERED: VANCOMYCIN/WATER FOR INJ (PEG) 750 MG/150 ML BAG IVPB SCH (10:00)
[2021-06-01] MEDS ORDERED: MELOXICAM 7.5 MG GT SCH (10:00)
[2021-06-01] MEDS ORDERED: LACTULOSE PO SCH (10:00)
[2021-06-01] MEDS ORDERED: PT OWN MED DRAWER 7, Y5N ONE ×3 (10:11→14:46)
[2021-06-01] MEDS: ACETAMINOPHEN 650 MG/20.3 ML ORAL SOLUTION (CUPS) PEG SCH ×2 (11:02→22:14)
[2021-06-01] MEDS: DORZOLAMIDE 2% HCL OPHTHALMIC SOLUTION 10 ML BOTTLE OU SCH ×3 (11:04→22:14)
[2021-06-01] MEDS: ZINC SULFATE 220 MG CAPSULE (FP) GT SCH (11:04)
[2021-06-01] MEDS: ENOXAPARIN NA (PORCINE) 40 MG/0.4 ML DISP.SYRIN SQ SCH (11:04)
[2021-06-01] MEDS: COLLAGENASE CLOSTRIDIUM HIST. 30 GRAMS TUBE TP SCH (11:05)
[2021-06-01] MEDS: BACITRACIN 15 GM TUBE TOPICAL OINTMENT TP SCH (11:05)
[2021-06-01] MEDS: INSULIN SLIDING SCALE (NOVOLOG) 1 VIAL SQ SCH ×3 (11:38→22:15)
[2021-06-01] MEDS: TOLTERODINE TARTRATE 2 MG TABLET NR SCH ×2 (14:48→22:16)
[2021-06-01] MEDS ORDERED: PIPERACILLIN/TAZOBACTAM 3.375 GM VIAL IVPB ONE (16:13)
[2021-06-01] MEDS ORDERED: DEXTROSE 5%-WATER - 50 ML IVPB ONE (16:14)
[2021-06-01] MEDS: PIPERACILLIN/TAZOB 3.375 GM 3.375 GM in DEXTROSE 5%-WATER - 50 ML IVPB SCH (17:27)
[2021-06-01] MEDS: METHYL SALICYLATE/MENTHOL OINT 30 GM TUBE TP SCH (22:07)
[2021-06-01] MEDS: traMADol HCL 50 MG TABLET PEG SCH (22:09)
[2021-06-02] MEDS: SENNOSIDES 8.8 MG/5 ML BULK BOTTLE PEG SCH ×2 (00:57→22:35)
[2021-06-02] MEDS ORDERED: DEXTROSE 5%-WATER - 50 ML IVPB ONE ×3 (01:30→16:26)
[2021-06-02] MEDS ORDERED: PIPERACILLIN/TAZOBACTAM 3.375 GM VIAL IVPB ONE ×3 (01:30→16:26)
[2021-06-02] MEDS ORDERED: PIPERACILLIN/TAZOB 4.5 GM 4.5 GM in DEXTROSE 5%-WATER 100 ML IVPB SCH (02:00)
[2021-06-02] MEDS: PIPERACILLIN/TAZOB 3.375 GM 3.375 GM in DEXTROSE 5%-WATER - 50 ML IVPB SCH ×3 (02:08→17:11)
[2021-06-02] MEDS: INSULIN SLIDING SCALE (NOVOLOG) 1 VIAL SQ SCH ×4 (06:48→22:34)
[2021-06-02] MEDS: DORZOLAMIDE 2% HCL OPHTHALMIC SOLUTION 10 ML BOTTLE OU SCH ×3 (06:48→22:35)
[2021-06-02] MEDS: ALBUTEROL SO4 2.5/IPRATROPIUM 0.5 INH SOL 3 ML VIAL.NEB. NEB SCH ×4 (07:50→20:28)
[2021-06-02] MEDS ORDERED: PT OWN MED DRAWER 7, Y5N ONE ×3 (09:13→22:09)
[2021-06-02] MEDS ORDERED: VANCOMYCIN/WATER FOR INJ (PEG) 750 MG/150 ML BAG IVPB SCH (10:00)
[2021-06-02] MEDS: ZINC SULFATE 220 MG CAPSULE (FP) GT SCH (10:19)
[2021-06-02] MEDS: TOLTERODINE TARTRATE 2 MG TABLET NR SCH ×2 (10:19→22:34)
[2021-06-02] MEDS: ENOXAPARIN NA (PORCINE) 40 MG/0.4 ML DISP.SYRIN SQ SCH (10:19)
[2021-06-02] MEDS: ACETAMINOPHEN 650 MG/20.3 ML ORAL SOLUTION (CUPS) PEG SCH ×2 (10:20→22:35)
[2021-06-02] MEDS: BACITRACIN 15 GM TUBE TOPICAL OINTMENT TP SCH (10:24)
[2021-06-02] MEDS: COLLAGENASE CLOSTRIDIUM HIST. 30 GRAMS TUBE TP SCH (10:25)
[2021-06-02 10:56] LABS: BASO % 1.2 % (0-2.0); EOS % 6.6 % (0-4.5); MCH 25.4 pg (25.7-33.7); MCHC 32.1 g/dl (32.0-35.9); MEAN CELL VOLUME 79.3 fl (80-96); MEAN PLT VOLUME 9.9 fl (7.5-11.1); MONO % 8.5 % (3.8-10.2); NEUT % 59.7 % (42.8-82.8); PLATELET COUNT 193 10^3/uL (134-434); RBC 3.53 M/mm3 (4.00-5.60); RDW 20.3 % (11.9-15.9); WHITE BLOOD COUNT 4.7 K/mm3 (4.0-10.0)
[2021-06-02 11:17] LABS: BLOOD UREA NITROGEN 11.8 mg/dL (7-18); CALCIUM 8.6 mg/dL (8.5-10.1); MAGNESIUM 2.1 mg/dL (1.8-2.4)
[2021-06-02 11:22] LABS: TOT PROT 6.4 g/dl (6.4-8.2)
[2021-06-02 11:23] LABS: CREATININE 0.6 mg/dL (0.55-1.3)
[2021-06-02 11:26] LABS: BILIRUBIN,TOTAL 0.3 mg/dL (0.2-1)
[2021-06-02 11:29] LABS: ALBUMIN 2.4 g/dl (3.4-5.0)
[2021-06-02 12:12] VITALS: BMI 19.0
[2021-06-02] MEDS: ASCORBIC ACID 500 MG/5 ML UNIT DOSE CUP GT SCH ×3 (14:27→22:36)
[2021-06-02 15:29] LABS: ARTERIAL BLOOD GAS BASE EXCESS 0.3 mmol/L (-2-2); ARTERIAL BLOOD GAS PO2 73.3 mmHg (80-100); ARTERIAL BLOOD GAS pH 7.414 (7.350-7.450)
[2021-06-02 15:30] LABS: ALLENS TEST POSITIVE
[2021-06-02] MEDS: METHYL SALICYLATE/MENTHOL OINT 30 GM TUBE TP SCH (22:34)
[2021-06-02] MEDS: traMADol HCL 50 MG TABLET PEG SCH (22:35)
[2021-06-03] MEDS ORDERED: PIPERACILLIN/TAZOBACTAM 3.375 GM VIAL IVPB ONE ×3 (01:42→16:51)
[2021-06-03] MEDS ORDERED: DEXTROSE 5%-WATER - 50 ML IVPB ONE ×3 (01:43→16:51)
[2021-06-03] MEDS: PIPERACILLIN/TAZOB 3.375 GM 3.375 GM in DEXTROSE 5%-WATER - 50 ML IVPB SCH ×3 (01:59→18:06)
[2021-06-03] MEDS: INSULIN SLIDING SCALE (NOVOLOG) 1 VIAL SQ SCH ×4 (06:53→21:58)
[2021-06-03] MEDS: DORZOLAMIDE 2% HCL OPHTHALMIC SOLUTION 10 ML BOTTLE OU SCH ×3 (06:53→21:58)
[2021-06-03] MEDS: COLLAGENASE CLOSTRIDIUM HIST. 30 GRAMS TUBE TP SCH (08:30)
[2021-06-03 08:40] LABS: BASO % 1.1 % (0-2.0); EOS % 5.3 % (0-4.5); HEMATOCRIT 26.3 % (35.4-49); HEMOGLOBIN 8.5 GM/dL (11.7-16.9); LYMPH % 32.8 % (8-40); MCH 25.4 pg (25.7-33.7); MCHC 32.1 g/dl (32.0-35.9); MEAN CELL VOLUME 78.9 fl (80-96); MEAN PLT VOLUME 9.8 fl (7.5-11.1); MONO % 8.5 % (3.8-10.2); NEUT % 52.3 % (42.8-82.8); PLATELET COUNT 200 10^3/uL (134-434); RBC 3.34 M/mm3 (4.00-5.60); RDW 19.7 % (11.9-15.9); WHITE BLOOD COUNT 4.5 K/mm3 (4.0-10.0)
[2021-06-03 09:20] LABS: BLOOD UREA NITROGEN 11.5 mg/dL (7-18); CALCIUM 8.7 mg/dL (8.5-10.1)
[2021-06-03 09:21] LABS: ALBUMIN 2.4 g/dl (3.4-5.0)
[2021-06-03 09:24] LABS: CREATININE 0.6 mg/dL (0.55-1.3)
[2021-06-03 09:25] LABS: BILIRUBIN,TOTAL 0.2 mg/dL (0.2-1)
[2021-06-03 09:26] LABS: TOT PROT 6.1 g/dl (6.4-8.2)
[2021-06-03] MEDS: ALBUTEROL SO4 2.5/IPRATROPIUM 0.5 INH SOL 3 ML VIAL.NEB. NEB SCH ×4 (09:26→20:17)
[2021-06-03] MEDS: ZINC SULFATE 220 MG CAPSULE (FP) GT SCH (11:15)
[2021-06-03] MEDS: ENOXAPARIN NA (PORCINE) 40 MG/0.4 ML DISP.SYRIN SQ SCH (11:15)
[2021-06-03] MEDS: MULTIVIT-MINERALS ORAL LIQUID GT SCH (11:15)
[2021-06-03] MEDS: BACITRACIN 15 GM TUBE TOPICAL OINTMENT TP SCH (11:18)
[2021-06-03] MEDS: AMINO ACIDS/PROTEIN HYDROLYS 30 ML LIQUID.PKT PO SCH (11:24)
[2021-06-03] MEDS: ASCORBIC ACID 500 MG/5 ML UNIT DOSE CUP GT SCH ×4 (11:29→21:59)
[2021-06-03] MEDS: TOLTERODINE TARTRATE 2 MG TABLET NR SCH ×2 (11:32→21:54)
[2021-06-03] MEDS: ACETAMINOPHEN 650 MG/20.3 ML ORAL SOLUTION (CUPS) PEG SCH ×2 (11:33→21:58)
[2021-06-03] MEDS ORDERED: PT OWN MED DRAWER 7, Y5N ONE (21:50)
[2021-06-03] MEDS: METHYL SALICYLATE/MENTHOL OINT 30 GM TUBE TP SCH (21:54)
[2021-06-03] MEDS: traMADol HCL 50 MG TABLET PEG SCH (21:55)
[2021-06-03] MEDS: SENNOSIDES 8.8 MG/5 ML BULK BOTTLE PEG SCH (21:58)
[2021-06-04] MEDS ORDERED: PIPERACILLIN/TAZOBACTAM 3.375 GM VIAL IVPB ONE ×2 (01:02→09:07)
[2021-06-04] MEDS ORDERED: DEXTROSE 5%-WATER - 50 ML IVPB ONE ×2 (01:03→09:07)
[2021-06-04] MEDS: PIPERACILLIN/TAZOB 3.375 GM 3.375 GM in DEXTROSE 5%-WATER - 50 ML IVPB SCH ×3 (01:23→17:11)
[2021-06-04] MEDS: INSULIN SLIDING SCALE (NOVOLOG) 1 VIAL SQ SCH ×4 (06:05→21:37)
[2021-06-04] MEDS: DORZOLAMIDE 2% HCL OPHTHALMIC SOLUTION 10 ML BOTTLE OU SCH ×3 (06:11→21:35)
[2021-06-04] MEDS: ALBUTEROL SO4 2.5/IPRATROPIUM 0.5 INH SOL 3 ML VIAL.NEB. NEB SCH ×4 (07:30→20:00)
[2021-06-04] MEDS: AMINO ACIDS/PROTEIN HYDROLYS 30 ML LIQUID.PKT PO SCH (09:27)
[2021-06-04] MEDS: BACITRACIN 15 GM TUBE TOPICAL OINTMENT TP SCH (09:27)
[2021-06-04] MEDS: MULTIVIT-MINERALS ORAL LIQUID GT SCH (09:30)
[2021-06-04] MEDS: ASCORBIC ACID 500 MG/5 ML UNIT DOSE CUP GT SCH ×4 (09:31→21:36)
[2021-06-04] MEDS: ENOXAPARIN NA (PORCINE) 40 MG/0.4 ML DISP.SYRIN SQ SCH (09:32)
[2021-06-04] MEDS: ACETAMINOPHEN 650 MG/20.3 ML ORAL SOLUTION (CUPS) PEG SCH ×2 (09:33→21:36)
[2021-06-04] MEDS: ZINC SULFATE 220 MG CAPSULE (FP) GT SCH (09:33)
[2021-06-04] MEDS: COLLAGENASE CLOSTRIDIUM HIST. 30 GRAMS TUBE TP SCH (09:34)
[2021-06-04] MEDS: TOLTERODINE TARTRATE 2 MG TABLET NR SCH ×2 (09:36→21:37)
[2021-06-04] MEDS ORDERED: PT OWN MED DRAWER 7, Y5N ONE (21:31)
[2021-06-04] MEDS: METHYL SALICYLATE/MENTHOL OINT 30 GM TUBE TP SCH (21:35)
[2021-06-04] MEDS: traMADol HCL 50 MG TABLET PEG SCH (21:36)
[2021-06-04] MEDS: SENNOSIDES 8.8 MG/5 ML BULK BOTTLE PEG SCH (21:37)
[2021-06-05] MEDS ORDERED: PIPERACILLIN/TAZOBACTAM 3.375 GM VIAL IVPB ONE (01:58)
[2021-06-05] MEDS ORDERED: DEXTROSE 5%-WATER - 50 ML IVPB ONE (01:58)
[2021-06-05] MEDS: PIPERACILLIN/TAZOB 3.375 GM 3.375 GM in DEXTROSE 5%-WATER - 50 ML IVPB SCH (02:08)
[2021-06-05] MEDS: INSULIN SLIDING SCALE (NOVOLOG) 1 VIAL SQ SCH ×4 (06:06→22:01)
[2021-06-05] MEDS: DORZOLAMIDE 2% HCL OPHTHALMIC SOLUTION 10 ML BOTTLE OU SCH ×3 (06:18→22:02)
[2021-06-05] MEDS: ALBUTEROL SO4 2.5/IPRATROPIUM 0.5 INH SOL 3 ML VIAL.NEB. NEB SCH ×4 (07:50→20:20)
[2021-06-05] MEDS: ACETAMINOPHEN 650 MG/20.3 ML ORAL SOLUTION (CUPS) PEG SCH ×2 (09:06→22:00)
[2021-06-05] MEDS: AMINO ACIDS/PROTEIN HYDROLYS 30 ML LIQUID.PKT PO SCH (09:06)
[2021-06-05] MEDS: ENOXAPARIN NA (PORCINE) 40 MG/0.4 ML DISP.SYRIN SQ SCH (09:07)
[2021-06-05] MEDS: ASCORBIC ACID 500 MG/5 ML UNIT DOSE CUP GT SCH ×4 (09:07→22:02)
[2021-06-05] MEDS: ZINC SULFATE 220 MG CAPSULE (FP) GT SCH (09:08)
[2021-06-05] MEDS: BACITRACIN 15 GM TUBE TOPICAL OINTMENT TP SCH (09:08)
[2021-06-05] MEDS ORDERED: MEROPENEM 1 GM VIAL (RESTRICTED TO ID) IVPB ONE ×2 (09:37→16:27)
[2021-06-05] MEDS ORDERED: DEXTROSE 5%-WATER 100 ML IVPB ONE ×2 (09:37→16:27)
[2021-06-05] MEDS: MULTIVIT-MINERALS ORAL LIQUID GT SCH (09:42)
[2021-06-05] MEDS: MEROPENEM 1 GM in DEXTROSE 5%-WATER 100 ML IVPB SCH ×2 (09:42→17:05)
[2021-06-05] MEDS: TOLTERODINE TARTRATE 2 MG TABLET NR SCH ×2 (09:43→22:00)
[2021-06-05] MEDS: COLLAGENASE CLOSTRIDIUM HIST. 30 GRAMS TUBE TP SCH (09:44)
[2021-06-05 09:56] LABS: BASO % 0.6 % (0-2.0); EOS % 3.2 % (0-4.5); HEMATOCRIT 27.9 % (35.4-49); HEMOGLOBIN 9.1 GM/dL (11.7-16.9); LYMPH % 21.7 % (8-40); MCH 25.8 pg (25.7-33.7); MCHC 32.8 g/dl (32.0-35.9); MEAN CELL VOLUME 78.7 fl (80-96); MONO % 6.6 % (3.8-10.2); NEUT % 67.9 % (42.8-82.8); PLATELET COUNT 199 10^3/uL (134-434); RBC 3.54 M/mm3 (4.00-5.60); RDW 19.8 % (11.9-15.9); WHITE BLOOD COUNT 6.2 K/mm3 (4.0-10.0)
[2021-06-05 10:17] LABS: CALCIUM 8.5 mg/dL (8.5-10.1)
[2021-06-05 10:18] LABS: ALBUMIN 2.6 g/dl (3.4-5.0); BLOOD UREA NITROGEN 13.6 mg/dL (7-18)
[2021-06-05 10:22] LABS: BILIRUBIN,TOTAL 0.3 mg/dL (0.2-1)
[2021-06-05 10:23] LABS: TOT PROT 6.8 g/dl (6.4-8.2)
[2021-06-05 10:28] LABS: CREATININE 0.6 mg/dL (0.55-1.3)
[2021-06-05] MEDS ORDERED: PT OWN MED DRAWER 7, Y5N ONE (21:54)
[2021-06-05] MEDS: METHYL SALICYLATE/MENTHOL OINT 30 GM TUBE TP SCH (21:59)
[2021-06-05] MEDS: traMADol HCL 50 MG TABLET PEG SCH (21:59)
[2021-06-05] MEDS: SENNOSIDES 8.8 MG/5 ML BULK BOTTLE PEG SCH (22:02)
[2021-06-06] MEDS ORDERED: DEXTROSE 5%-WATER 100 ML IVPB ONE ×3 (01:17→16:56)
[2021-06-06] MEDS ORDERED: MEROPENEM 1 GM VIAL (RESTRICTED TO ID) IVPB ONE ×3 (01:17→16:56)
[2021-06-06] MEDS: MEROPENEM 1 GM in DEXTROSE 5%-WATER 100 ML IVPB SCH ×3 (01:51→17:46)
[2021-06-06] MEDS: INSULIN SLIDING SCALE (NOVOLOG) 1 VIAL SQ SCH ×4 (06:15→21:43)
[2021-06-06] MEDS: DORZOLAMIDE 2% HCL OPHTHALMIC SOLUTION 10 ML BOTTLE OU SCH ×3 (06:15→21:44)
[2021-06-06 06:18] LABS: ARTERIAL BLD GAS O2 SATURATION 98.5 % (95-98); ARTERIAL BLOOD GAS BASE EXCESS 3.6 mmol/L (-2-2); ARTERIAL BLOOD GAS PO2 128.3 mmHg (80-100); ARTERIAL BLOOD GAS pH 7.404 (7.350-7.450)
[2021-06-06 06:20] LABS: ALLENS TEST POSITIVE
[2021-06-06] MEDS: ALBUTEROL SO4 2.5/IPRATROPIUM 0.5 INH SOL 3 ML VIAL.NEB. NEB SCH ×4 (08:00→20:04)
[2021-06-06] MEDS: ZINC SULFATE 220 MG CAPSULE (FP) GT SCH (09:40)
[2021-06-06] MEDS: AMINO ACIDS/PROTEIN HYDROLYS 30 ML LIQUID.PKT PO SCH (09:40)
[2021-06-06] MEDS: ACETAMINOPHEN 650 MG/20.3 ML ORAL SOLUTION (CUPS) PEG SCH ×2 (09:41→21:44)
[2021-06-06] MEDS: BACITRACIN 15 GM TUBE TOPICAL OINTMENT TP SCH (09:42)
[2021-06-06] MEDS: TOLTERODINE TARTRATE 2 MG TABLET NR SCH ×2 (09:42→21:43)
[2021-06-06] MEDS: MULTIVIT-MINERALS ORAL LIQUID GT SCH (09:43)
[2021-06-06] MEDS: ENOXAPARIN NA (PORCINE) 40 MG/0.4 ML DISP.SYRIN SQ SCH (09:44)
[2021-06-06] MEDS: ASCORBIC ACID 500 MG/5 ML UNIT DOSE CUP GT SCH ×4 (09:44→21:48)
[2021-06-06] MEDS: COLLAGENASE CLOSTRIDIUM HIST. 30 GRAMS TUBE TP SCH (13:01)
[2021-06-06] MEDS: METHYL SALICYLATE/MENTHOL OINT 30 GM TUBE TP SCH (21:42)
[2021-06-06] MEDS: SENNOSIDES 8.8 MG/5 ML BULK BOTTLE PEG SCH (21:44)
[2021-06-06] MEDS: traMADol HCL 50 MG TABLET PEG SCH (21:45)
[2021-06-07] MEDS ORDERED: MEROPENEM 1 GM VIAL (RESTRICTED TO ID) IVPB ONE ×2 (01:53→09:06)
[2021-06-07] MEDS ORDERED: DEXTROSE 5%-WATER 100 ML IVPB ONE ×2 (01:53→09:06)
[2021-06-07] MEDS: MEROPENEM 1 GM in DEXTROSE 5%-WATER 100 ML IVPB SCH ×2 (02:11→09:29)
[2021-06-07] MEDS: INSULIN SLIDING SCALE (NOVOLOG) 1 VIAL SQ SCH ×4 (06:35→22:15)
[2021-06-07] MEDS: DORZOLAMIDE 2% HCL OPHTHALMIC SOLUTION 10 ML BOTTLE OU SCH ×3 (06:36→22:15)
[2021-06-07] MEDS: ALBUTEROL SO4 2.5/IPRATROPIUM 0.5 INH SOL 3 ML VIAL.NEB. NEB SCH ×4 (08:38→20:05)
[2021-06-07] MEDS: ZINC SULFATE 220 MG CAPSULE (FP) GT SCH (09:28)
[2021-06-07] MEDS: TOLTERODINE TARTRATE 2 MG TABLET NR SCH ×2 (09:28→22:14)
[2021-06-07] MEDS: ENOXAPARIN NA (PORCINE) 40 MG/0.4 ML DISP.SYRIN SQ SCH (09:28)
[2021-06-07] MEDS: AMINO ACIDS/PROTEIN HYDROLYS 30 ML LIQUID.PKT PO SCH (09:28)
[2021-06-07] MEDS: MULTIVIT-MINERALS ORAL LIQUID GT SCH (09:29)
[2021-06-07] MEDS: ACETAMINOPHEN 650 MG/20.3 ML ORAL SOLUTION (CUPS) PEG SCH ×2 (09:30→22:15)
[2021-06-07] MEDS: COLLAGENASE CLOSTRIDIUM HIST. 30 GRAMS TUBE TP SCH (11:21)
[2021-06-07] MEDS: ASCORBIC ACID 500 MG/5 ML UNIT DOSE CUP GT SCH ×4 (11:21→22:12)
[2021-06-07] MEDS: BACITRACIN 15 GM TUBE TOPICAL OINTMENT TP SCH (11:21)
[2021-06-07] MEDS: MIDODRINE HCL 5 MG TABLET GT SCH ×2 (14:28→19:23)
[2021-06-07] MEDS: METHYL SALICYLATE/MENTHOL OINT 30 GM TUBE TP SCH (22:13)
[2021-06-07] MEDS: METOPROLOL TARTRATE 25 MG TABLET (FP) PO SCH (22:14)
[2021-06-07] MEDS: SENNOSIDES 8.8 MG/5 ML BULK BOTTLE PEG SCH (22:15)
[2021-06-07] MEDS: traMADol HCL 50 MG TABLET PEG SCH (22:16)
[2021-06-08] MEDS: DORZOLAMIDE 2% HCL OPHTHALMIC SOLUTION 10 ML BOTTLE OU SCH ×3 (06:34→23:19)
[2021-06-08] MEDS: INSULIN SLIDING SCALE (NOVOLOG) 1 VIAL SQ SCH ×4 (06:34→23:19)
[2021-06-08] MEDS: ALBUTEROL SO4 2.5/IPRATROPIUM 0.5 INH SOL 3 ML VIAL.NEB. NEB SCH ×4 (07:40→20:05)
[2021-06-08] MEDS ORDERED: PT OWN MED DRAWER 7, Y5N ONE ×4 (11:49→23:10)
[2021-06-08] MEDS: MIDODRINE HCL 5 MG TABLET GT SCH ×3 (12:05→19:05)
[2021-06-08] MEDS: AMINO ACIDS/PROTEIN HYDROLYS 30 ML LIQUID.PKT PO SCH (12:05)
[2021-06-08] MEDS: TOLTERODINE TARTRATE 2 MG TABLET NR SCH (12:06)
[2021-06-08] MEDS: ZINC SULFATE 220 MG CAPSULE (FP) GT SCH (12:06)
[2021-06-08] MEDS: METOPROLOL TARTRATE 25 MG TABLET (FP) PO SCH ×2 (12:07→23:17)
[2021-06-08] MEDS: MULTIVIT-MINERALS ORAL LIQUID GT SCH (12:07)
[2021-06-08] MEDS: ASCORBIC ACID 500 MG/5 ML UNIT DOSE CUP GT SCH ×4 (12:09→23:16)
[2021-06-08] MEDS: ACETAMINOPHEN 650 MG/20.3 ML ORAL SOLUTION (CUPS) PEG SCH ×2 (12:10→23:17)
[2021-06-08] MEDS: BACITRACIN 15 GM TUBE TOPICAL OINTMENT TP SCH (12:12)
[2021-06-08] MEDS: COLLAGENASE CLOSTRIDIUM HIST. 30 GRAMS TUBE TP SCH (12:12)
[2021-06-08] MEDS ORDERED: FLU VACC QS2021-22(6MOS UP)/PF 60 MCG/0.5 ML SYRINGE IM ONE (19:30)
[2021-06-08] MEDS: SENNOSIDES 8.8 MG/5 ML BULK BOTTLE PEG SCH (23:16)
[2021-06-08] MEDS: METHYL SALICYLATE/MENTHOL OINT 30 GM TUBE TP SCH (23:19)
[2021-06-09] MEDS: TOLTERODINE TARTRATE 2 MG TABLET NR SCH ×2 (00:33→12:41)
[2021-06-09] MEDS: DORZOLAMIDE 2% HCL OPHTHALMIC SOLUTION 10 ML BOTTLE OU SCH ×2 (06:16→16:29)
[2021-06-09] MEDS: INSULIN SLIDING SCALE (NOVOLOG) 1 VIAL SQ SCH ×2 (06:17→12:47)
[2021-06-09] MEDS: ALBUTEROL SO4 2.5/IPRATROPIUM 0.5 INH SOL 3 ML VIAL.NEB. NEB SCH ×3 (08:10→16:12)
[2021-06-09] MEDS ORDERED: PT OWN MED DRAWER 7, Y5N ONE (12:20)
[2021-06-09] MEDS: METOPROLOL TARTRATE 25 MG TABLET (FP) PO SCH (12:39)
[2021-06-09] MEDS: MIDODRINE HCL 5 MG TABLET GT SCH ×2 (12:39→16:26)
[2021-06-09] MEDS: ASCORBIC ACID 500 MG/5 ML UNIT DOSE CUP GT SCH ×2 (12:40→16:27)
[2021-06-09] MEDS: ZINC SULFATE 220 MG CAPSULE (FP) GT SCH (12:40)
[2021-06-09] MEDS: ACETAMINOPHEN 650 MG/20.3 ML ORAL SOLUTION (CUPS) PEG SCH (12:40)
[2021-06-09] MEDS: BACITRACIN 15 GM TUBE TOPICAL OINTMENT TP SCH (12:41)
[2021-06-09] MEDS: COLLAGENASE CLOSTRIDIUM HIST. 30 GRAMS TUBE TP SCH (12:41)
[2021-06-09] MEDS: MULTIVIT-MINERALS ORAL LIQUID GT SCH (12:41)
[2021-06-09 14:58] VITALS: BP 125/75; PULSE 102; TEMP 98.3
[2021-06-09] MEDS: AMINO ACIDS/PROTEIN HYDROLYS 30 ML LIQUID.PKT PO SCH (16:26)
[2021-06-09 19:54] LABS: BILIRUBIN,TOTAL 0.4 mg/dL (0.2-1); BLOOD UREA NITROGEN 18.5 mg/dL (7-18); CALCIUM 9.9 mg/dL (8.5-10.1); CREATININE 0.6 mg/dL (0.55-1.3); TOT PROT 7.6 g/dl (6.4-8.2)
== END 2021-06-09 16:55 | DRG 205 ==
LOC: JER 18:28 → JERBED 21:13 → J5S 06-01 02:06
PROVIDERS: ATTEND Family Medicine
DX: T17.490A Other foreign object in trachea causing asphyxiation, initial encounter (principal); L89.153 Pressure ulcer of sacral region, stage 3; J96.21 Acute and chronic respiratory failure with hypoxia; J96.22 Acute and chronic respiratory failure with hypercapnia; J44.1 Chronic obstructive pulmonary disease with (acute) exacerbation; R64 Cachexia; Z68.1 Body mass index [BMI] 19.9 or less, adult; E11.9 Type 2 diabetes mellitus without complications; K70.30 Alcoholic cirrhosis of liver without ascites; J40 Bronchitis, not specified as acute or chronic; I48.91 Unspecified atrial fibrillation; F41.8 Other specified anxiety disorders; M19.90 Unspecified osteoarthritis, unspecified site; K21.9 Gastro-esophageal reflux disease without esophagitis; F10.10 Alcohol abuse, uncomplicated; R13.10 Dysphagia, unspecified; R50.9 Fever, unspecified; D64.9 Anemia, unspecified; R41.841 Cognitive communication deficit; D72.829 Elevated white blood cell count, unspecified; R00.0 Tachycardia, unspecified; Z93.1 Gastrostomy status; Z93.0 Tracheostomy status; Z85.46 Personal history of malignant neoplasm of prostate; Z89.511 Acquired absence of right leg below knee
CPT/HCPCS: 36415; 36600; 71045-TC-FY; 74230-TC-FY; 80048; 80053; 81003; 82803; 82962; 83605; 83735; 84484; 85025; 85610; 85730; 87040; 87070; 87086; 87186; 87205; 87899; 90686; 92611-GN; 93005; 93010; 93971-TC; 94640; 99285-25; C9803; E0186; G0008; U0003; U0005